=== PATIENT | female | born 1950 | race Caucasian/White ===

== ENCOUNTER 2017-05-04 16:26 | Inpatient (IN) | payer MEDICARE, BC ==
[~2017-05-04] VITALS: Ht 165.1 cm; Wt 72.0 kg
[2017-05-04] VITALS (10 sets, daily range): BP systolic 67–142; BP diastolic 57–76; PULSE 79–113; RESP 25; TEMP 96.6–97.9; O2SAT 98–100
[2017-05-04 16:43] LABS: HEMATOCRIT 40.4 % (35.0-46.0); MEAN CELL VOLUME 95.3 FL (80.0-100.0); MEAN CORPUSCULAR HGB CONC 33.5 % (32.0-36.0); PLATELET COUNT 123 TH/MM3 (150-450); RED BLOOD COUNT 4.25 MIL/MM3 (4.00-5.30); RED CELL DISTRIBUTION WIDTH 13.3 % (11.6-17.2); WHITE BLOOD COUNT 4.3 TH/MM3 (4.0-11.0)
[2017-05-04 16:50] LABS: HEMO FLAGS AUTO DIFF
[2017-05-04] MEDS ORDERED: MISCELLANEOUS NURSING INFORMATION XX SCH ×2 (17:00→19:45)
[2017-05-04] MEDS ORDERED: MAGNESIUM OXIDE 400 MG TAB PO PRN (17:00)
[2017-05-04] MEDS ORDERED: CHLORHEXIDINE GLUCONATE 2 % 1 PACK (2 CLOTHS) TOP PRN ×2 (17:00→19:45)
[2017-05-04] MEDS ORDERED: LACTULOSE SYRUP 20 GM/30 ML CUP PO PRN ×2 (17:00→19:45)
[2017-05-04] MEDS ORDERED: POTASSIUM CHLORIDE 25 MEQ EFFERVESCENT TAB PO PRN (17:00)
[2017-05-04] MEDS ORDERED: MAGNESIUM SULFATE INJ 4 GM in SODIUM CHLORIDE 0.9% INJ 92 ML IV PRN (17:00)
[2017-05-04] MEDS ORDERED: POTASSIUM CHLOR 20 MEQ PREMIX 100 ML IV PRN ×2 (17:00)
[2017-05-04] MEDS ORDERED: POTASSIUM PHOSPHATE MONOBASIC 500 MG TAB PO PRN (17:00)
[2017-05-04] MEDS ORDERED: MAGNESIUM HYDROXIDE SUSP 30 ML CUP PO PRN ×2 (17:00→19:45)
[2017-05-04] MEDS ORDERED: POTASSIUM PHOSPHATE MONOBASIC 500 MG TAB PO/TUBE PRN (17:00)
[2017-05-04] MEDS ORDERED: POTASSIUM CHLOR 40 MEQ PREMIX 100 ML IV PRN ×2 (17:00)
[2017-05-04] MEDS ORDERED: ONDANSETRON HCL 4 MG/2 ML VIAL IV PUSH PRN (17:00)
[2017-05-04] MEDS ORDERED: MAGNESIUM SULFATE INJ 2 GM in SODIUM CHLORIDE 0.9% INJ 96 ML IV PRN (17:00)
[2017-05-04] MEDS ORDERED: SODIUM CHLORIDE 0.9% FLUSH 10 ML FLUSH IV FLUSH PRN ×2 (17:00→19:45)
[2017-05-04] MEDS ORDERED: SODIUM PHOSPHATE INJ 30 MMOL in SODIUM CHLOR 0.9% 250 ML INJ 240 ML IV PRN (17:00)
[2017-05-04] MEDS ORDERED: RESP: ALBUTEROL 2.5 MG/IPRATROPIUM 0.5 MG NEB (PRN) INH ×2 (17:00→19:45)
[2017-05-04] MEDS ORDERED: POTASSIUM PHOSPHATE INJ 30 MMOL in SODIUM CHLOR 0.9% 250 ML INJ 250 ML IV PRN (17:00)
[2017-05-04] MEDS ORDERED: SENNOSIDES 8.6 MG TAB PO PRN ×2 (17:00→19:45)
--- NOTE | 2017-05-04 17:00 | RADRPT ---
EXAM DATE/TIME: 05/04/2017 16:42 [facility] COMPARISON: No previous studies available for comparison. INDICATIONS : Fall. Unresponsive. RADIATION DOSE: 58.68 CTDIvol (mGy) MEDICAL HISTORY : Non-responsive. SURGICAL HISTORY : Non-responsive. ENCOUNTER: Initial ACUITY: 1 day PAIN SCALE: Non-responsive LOCATION: cranial TECHNIQUE: Multiple contiguous axial images were obtained of the head. Using automated exposure control and adj ustment of the mA and/or kV according to patient size, radiation dose was kept as low as reasonably a chievable to obtain optimal diagnostic quality images. DICOM format image data is available electro nically for review and comparison. FINDINGS: CEREBRUM: Ventricles are normal. There is trace subarachnoid blood products layer along the right frontal sulci in the mid convexity and at the left frontoparietal high convexity. No intraparenchymal blood produc ts are identified. No midline shift or herniation. POSTERIOR FOSSA: Posterior fossa structures demonstrate no acute finding. EXTRACRANIAL: There are blood products within the sphenoid sinus and there is fluid pooling within the posterior na sopharynx. Orbits demonstrate no abnormality. There is focal left parietal scalp soft tissue swelling with subcutaneous air. SKULL: There is a nondisplaced fracture extending through the left parietal bone and left temporal bone. CONCLUSION: 1. There are minimal acute subarachnoid blood products layering along the sulci of the right frontal lobe and left frontoparietal region. 2. There is a nondisplaced fracture of the left temporal bone and parietal bone. 3. Blood products are present within the sphenoid sinus. Octaviano Coronado MD on May 04, 2017 at 16:54 Board Certified Radiologist. This report was verified electronically.
[2017-05-04 17:06] LABS: CHLORIDE 101 MEQ/L (98-107); POTASSIUM 3.6 MEQ/L (3.5-5.1); SODIUM (NA) 138 MEQ/L (136-145)
[2017-05-04 17:10] LABS: ANION GAP 15 MEQ/L (5-15); APTT (PATIENT) 26.1 SEC (24.3-30.1); BICARBONATE 21.6 MEQ/L (21.0-32.0); BLOOD UREA NITROGEN 22 MG/DL (7-18); INTERNATIONAL NORMALIZED RATIO 1.3 RATIO; PROTHROMBIN TIME - PATIENT 12.7 SEC (9.8-11.6)
[2017-05-04 17:13] LABS: ALT (GPT) 71 U/L (10-53); AST (GOT) 112 U/L (15-37); GLOMERULAR FILTRATION RATE 55 ML/MIN (>89)
[2017-05-04 17:14] LABS: TOTAL BILIRUBIN ADULT 0.6 MG/DL (0.2-1.0)
[2017-05-04 17:15] LABS: CREATINE KINASE 230 U/L (26-192)
[2017-05-04 17:16] LABS: ALKALINE PHOSPHATASE 111 U/L (45-117)
--- NOTE | 2017-05-04 17:17 | RADRPT ---
EXAM DATE/TIME: 05/04/2017 16:42 [facility] COMPARISON: No previous studies available for comparison. INDICATIONS : Fall. Unresponsive. RADIATION DOSE: 26.64 CTDIvol (mGy) MEDICAL HISTORY : Non-responsive. SURGICAL HISTORY : Non-responsive. ENCOUNTER: Initial ACUITY: 1 day PAIN SCALE: Non-responsive LOCATION: neck TECHNIQUE: Volumetric scanning of the cervical spine was performed. Multiplanar reconstructions in the sagittal, coronal and oblique axial planes were performed. Using automated exposure control and adjustment o f the mA and/or kV according to patient size, radiation dose was kept as low as reasonably achievable to obtain optimal diagnostic quality images. DICOM format image data is available electronically f or review and comparison. FINDINGS: CT of the cervical spine was performed in sagittal and axial planes. There is straightening of the no rmal cervical lordosis which may be secondary positioning or spasm. There is degenerative disc diseas e with disc space narrowing and marginal osteophyte formation at C5-C6. 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 No focal areas of marrow replace ment are identified. The craniocervical junction appears normal. Axial images were performed from C2- C3 through C7-T1. There is fluid in the left middle ear and mastoid with a fracture of the left temporal bone. There is also high density fluid in the sphenoid sinus characteristic of basilar skull fracture. There is marta eolar disease in both upper lobes which may reflect edema. C2-C3: No significant abnormalities identified. C3-C4: No significant abnormalities identified. C4-C5: A small central protrusion is present impinging on the thecal sac but not significantly deforming the cord. There is no significant spinal canal stenosis. The neural foramina are clear bilaterally. C5-C6: There is uncovertebral joint hypertrophy on the right side. The neural foramina are clear bilaterally . There is no significant spinal canal stenosis. There is osteophytic ridging along the posterior asp ect of vertebral body. C6-C7: No significant abnormalities identified. C7-T1: No significant abnormalities identified. CONCLUSION: 1. No evidence of acute cervical spine fracture. 2. Horizontal fracture left temporal bone. Edin Fitch MD on May 04, 2017 at 17:06 Board Certified Radiologist. This report was verified electronically.
[2017-05-04] MEDS ORDERED: NOREPINEPHRINE 4 MG/4 ML AMP ONE (17:18)
--- NOTE | 2017-05-04 17:18 | RADRPT ---
EXAM DATE/TIME: 05/04/2017 17:04 [facility] COMPARISON: No previous studies available for comparison. INDICATIONS : Post intubation. MEDICAL HISTORY : Unobtainable. SURGICAL HISTORY : Unobtainable. ENCOUNTER: Initial ACUITY: 1 day PAIN SCORE: Non-responsive. LOCATION: Bilateral chest FINDINGS: The cardiac silhouette is enlarged in transverse diameter. There is bilateral perihilar pulmonary lela ma worse the upper lobes and worse on the right. Endotracheal tube is in good position above the shahrzad na. There is no evidence of pneumothorax. CONCLUSION: 1. Satisfactory position of endotracheal tube as above. 2. Interstitial pulmonary edema Edin Fitch MD on May 04, 2017 at 17:15 Board Certified Radiologist. This report was verified electronically.
[2017-05-04 17:28] LABS: CKMB 3.9 NG/ML (0.5-3.6)
--- NOTE | 2017-05-04 17:29 | PD ---
HPI Chief Complaint: cardiac arrest Time Seen by Provider: 16:31 Travel History International Travel<30 days: No Contact w/Intl Traveler<30days: No Traveled to known affect area: No History of Present Illness HPI This patient comes in critically ill after suffering ventricular fibrillation arrest. This patient was witnessed at 345 to have a syncopal episode. She became unresponsive and fell backward and struck the back of her head on the ground. Paramedics were called and found her in ventricular fibrillation. They worked her as an ACLS code for the next 40 minutes until they got return of circulation. She was defibrillated 6 times and received 4 doses of 1 mg epinephrine. She received 100 mg of bicarbonate and a total of 450 mg of amiodarone given over 2 separate doses. She has a history of A. fib and takes Xarelto. Patient is unresponsive on arrival and throughout her stay so far and is unable to provide any further history or review of systems. I did speak with her family members. [facility] Social History Alcohol Use: No Tobacco Use: No Substance Use: No Allergies-Medications (Allergen,Severity, Reaction): Coded Allergies: No Known Allergies (Unverified , 05/04/17) Review of Systems ROS Limitations: Clinical Condition, Intubated, Unresponsive Physical Exam Narrative GENERAL: Well-nourished, well-developed patient who is unresponsive and intubated . SKIN: Focused skin assessment reveals no rash and nodules. Skin is Warm and dry. HEAD: Large hematoma in the left occipital region. There is a stellate 2.5 cm laceration. EYES: Pupils equal and round. No scleral icterus. No injection or drainage. ENT: No nasal bleeding or discharge. Mucous membranes pink and moist. There is blood in the left ear canal. There is hemotympanum present. She is intubated. NECK: Trachea midline. No JVD. C-collar maintained. CARDIOVASCULAR: Irregularly irregular rhythm. No murmur appreciated. RESPIRATORY: Clear lungs to auscultation when being bagged by respiratory therapist. Clear to auscultation. Breath sounds equal bilaterally. GASTROINTESTINAL: Abdomen soft, non-tender, nondistended. Hepatic and splenic margins not palpable. MUSCULOSKELETAL: No obvious deformities. No clubbing. No cyanosis. No edema. NEUROLOGICAL: GCS of 3. Pupils are 3 mm and nonreactive and symmetric and round. No response to pain stimuli. Requiring no medications for sedation PSYCHIATRIC: Impossible to test mood or affect or insight or judgment. Data Data Orders Orders Electrocardiogram (05/04/17 16:29) Complete Blood Count With Diff (05/04/17 16:29) Comprehensive Metabolic Panel (05/04/17 16:29) Creatine Kinase (Cpk) (05/04/17 16:29) Ckmb (Isoenzyme) Profile (05/04/17 16:29) Troponin I (05/04/17 16:29) Prothrombin Time / Inr (Pt) (05/04/17 16:29) Act Partial Throm Time (Ptt) (05/04/17 16:29) Arterial Blood Gas (Abg) (05/04/17 16:29) Chest, Single Ap (05/04/17 16:29) Ct Brain W/O Iv Contrast(Rout) (05/04/17 16:29) Ct Cerv Spine W/O Contrast (05/04/17 ) Admit Order (Ed Use Only) (05/04/17 16:41) Admit To Inpatient (05/04/17 ) Code Status (05/04/17 16:46) Vital Signs (Adult) COY.Q1H (05/04/17 16:46) Activity Bed Rest (05/04/17 16:46) Elevate Head Of Bed (05/04/17 16:46) Neuro Checks . ORDERED (05/04/17 16:46) Insert Ng Tube (05/04/17 16:46) Diet Npo (05/04/17 Dinner) Sodium Chloride 0.9% Flush (Ns Flush) (05/04/17 17:00) Sodium Chloride 0.9% Flush (Ns Flush) (05/04/17 21:00) Famotidine Inj (Pepcid Inj) (05/04/17 21:00) Ondansetron Inj (Zofran Inj) (05/04/17 17:00) Albuterol-Ipratropium Neb (Duoneb Neb) (05/04/17 22:00) Albuterol-Ipratropium Neb (Duoneb Neb) (05/04/17 17:00) Sputum Culture And Gram Stain (05/04/17 16:46) Brine Supervisor / Telemetry COY.Q8H (05/04/17 16:46) Pharmacologic Contraindication (05/04/17 16:46) ^ Initiate Protocol (05/04/17 16:46) Instruction (05/04/17 16:46) [facility] Nursing Information (05/04/17 17:00) Chlorhexidine 2% Cloth (Chlorhexidine 2% (05/05/17 04:00) Chlorhexidine 2% Cloth (Chlorhexidine 2% (05/04/17 17:00) Mrsa Pcr Surveillance (05/04/17 16:46) Docusate Sodium-Senna (Yaneth-Colace) (05/04/17 21:00) Magnesium Hydroxide Liq (Milk Of Magnesi (05/04/17 17:00) Sennosides (Senokot) (05/04/17 17:00) Lactulose Liq (Lactulose Liq) (05/04/17 17:00) Elevate Head Of Bed (05/04/17 16:46) Restraints Non-Violent COY.Q3H (05/04/17 16:46) Ventilator Weaning Readiness COY.DAILY@0800 (05/04/17 16:46) ^ Medication Admin Instruction (05/04/17 16:46) Notify Dr: Other (05/04/17 16:46) Phosphorus (Po4) (05/04/17 16:46) Potassium Chlor 40 Meq Premix (Kcl 40 Me (05/04/17 17:00) Potassium Chlor 20 Meq Premix (Kcl 20 Me (05/04/17 17:00) Potassium Chloride Eff (K-Lyte Cl Eff) (05/04/17 17:00) Potassium Chlor 40 Meq Premix (Kcl 40 Me (05/04/17 17:00) Potassium Chlor 20 Meq Premix (Kcl 20 Me (05/04/17 17:00) Magnesium Sulfate Inj (Magnesium Sulfate (05/04/17 17:00) Magnesium Oxide (Mag-Ox) (05/04/17 17:00) Magnesium Sulfate Inj (Magnesium Sulfate (05/04/17 17:00) Potassium Phosphate (K-Phos) (05/04/17 17:00) Sodium Phosphate Inj (Sodium Phosphate I (05/04/17 17:00) Potassium Phosphate (K-Phos) (05/04/17 17:00) Potassium Phosphate Inj (Potassium Phosp (05/04/17 17:00) Inpatient Certification (05/04/17 ) Labs Laboratory Tests Test 05/04/17 16:25 White Blood Count 4.3 TH/MM3 Red Blood Count 4.25 MIL/MM3 Hemoglobin 13.6 GM/DL Hematocrit 40.4 % Mean Corpuscular Volume 95.3 FL Mean Corpuscular Hemoglobin 32.0 PG Mean Corpuscular Hemoglobin Concent 33.5 % Red Cell Distribution Width 13.3 % Platelet Count 123 TH/MM3 Mean Platelet Volume 9.1 FL CBC Comment AUTO DIFF Prothrombin Time 12.7 SEC Prothromb Time International Ratio 1.3 RATIO Activated Partial Thromboplast Time 26.1 SEC Blood Urea Nitrogen 22 MG/DL Creatinine 1.00 MG/DL Random Glucose 271 MG/DL Total Protein 6.3 GM/DL Albumin 3.0 GM/DL Calcium Level 8.5 MG/DL Aspartate Amino Transf (AST/SGOT) 112 U/L Alanine Aminotransferase (ALT/SGPT) 71 U/L Total Bilirubin 0.6 MG/DL Sodium Level 138 MEQ/L Potassium Level 3.6 MEQ/L Chloride Level 101 MEQ/L Carbon Dioxide Level 21.6 MEQ/L Anion Gap 15 MEQ/L Estimat Glomerular Filtration Rate 55 ML/MIN [facility] Medical Decision Making Medical Screen Exam Complete: Yes Emergency Medical Condition: Yes Medical Record Reviewed: Yes Differential Diagnosis Ventricular for ablation, A. fib with RVR, SVT, intracranial hemorrhage Narrative Course I have reviewed the patient's electronic medical record. Patient had a Holter monitor in 2015 showing A. fib as well as some brief wide complex tachycardia spells Patient arrives critically ill. She has had ACLS coding for the last 40 minutes for V. fib arrest. Currently she is in A. fib with RVR, rate 110 Initial blood pressure 160/110 3 IVs placed I reviewed her chest x-ray which shows good placement of tube Saturations are excellent on the vent Stat CT of the brain reveals some subarachnoid hemorrhage as well as nondisplaced left temporal bone fracture CT of the C-spine is still pending Case reviewed in detail with Dr. 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 fib Procedure note: During the logrolling process, I placed 3 simple interrupted sutures with 3-0 Ethilon to stop the scalp bleeding. No anesthesia required for the sutures. She has a large hematoma but there is no longer any bleeding Laceration is stellate and 2.5 cm in the left occipital scalp Have taken further history with family. She is on Xarelto for chronic A. fib. There is no adequate way to reverse this rapidly. I spoke a second time with Dr. Simpson who is awaiting emergent transfer Patient is very complex and extensive bedside time is required Labs have been sent and are pending. After 6 defibrillations and CPR obviously her cardiac enzymes will be elevated and have to be interpreted in that light. Critical Care Narrative Aggregate critical care time was 80 minutes. Time to perform other separately billable procedures was not included in the critical care time. My time did not include minutes spent treating any other patients simultaneously or on activities that did not directly contribute to the patient's treatment. The services I provided to this patient were to treat and/or prevent clinically significant deterioration that could result in: Cardiopulmonary arrest, , cardiogenic shock, brain stem herniation I provided critical care services requiring my management, as noted below: Chart data review, documentation time, medication orders and management, vital sign assessments/reviewing monitor data, ordering and reviewing lab tests, ordering and interpreting/reviewing x-rays and diagnostic studies, care of the patient and discussion of the patient with the admitting physicians. Diagnosis Primary Impression: Ventricular fibrillation Additional Impressions: Cardiac arrest Subarachnoid hemorrhage following injury Qualified Codes: S06.6X3A - Traumatic subarachnoid hemorrhage with loss of consciousness of 1 hour to 5 hours 59 minutes, initial encounter Admitting Information Admitting Physician Requests: Admit Stone Hewitt MD May 04, 2017 17:29
[2017-05-04 17:47] LABS: NEUTROPHIL # MANUAL DIFF 0.2 TH/MM3 (1.8-7.7); POLYS (SEG NEUTROPHILS) 4 % (16-70); WBC DIFF SAMPLE 100
[2017-05-04 17:48] LABS: PLATELET ESTIMATE SMEAR LOW (NORMAL); PLATELET MORPHOLOGY NORMAL (NORMAL)
[2017-05-04 17:49] LABS: SCAN/DIFF FINAL DIFF MANUAL
[2017-05-04] MEDS ORDERED: PROTHROMBIN COMPLEX CONC INJ 3,000 UNITS in SYRINGE/BAG 1 EA IV ONE (18:45)
[2017-05-04] MEDS ORDERED: ACTIVATED CHARCOAL LIQUID 25 GM/120 ML BTL NG ONE (18:45)
[2017-05-04] MEDS ORDERED: AMIODARONE INJ 450 MG in DEXTROSE 5% IN WATE(EXCEL) INJ 241 ML IV PRN ×2 (19:44)
[2017-05-04] MEDS ORDERED: NOREPINEPHRINE-DEXTROSE DRIP 250 ML IV PRN (19:45)
[2017-05-04] MEDS ORDERED: BISACODYL 10 MG SUPP RECTAL PRN (19:45)
[2017-05-04] MEDS ORDERED: MORPHINE SULFATE 4 MG/ML INJ IV PUSH PRN (19:45)
[2017-05-04] MEDS ORDERED: MIDAZOLAM HCL 2 MG/2 ML VIAL IV PUSH PRN (19:45)
[2017-05-04] MEDS ORDERED: SODIUM CHLOR 0.9% 1000 ML INJ 1,000 ML IV ONE (19:45)
[2017-05-04] MEDS ORDERED: TERBUTALINE INJ 1 MG/ML AMP SQ PRN (19:45)
--- NOTE | 2017-05-04 20:32 | HHI.HP ---
[facility] Service Critical Care Medicine Primary Care Physician Britta Nelson MD Admission Diagnosis v fib arrest, head injury Diagnosis: Travel History International Travel<30 Days: No Contact w/Intl Traveler <30 Da: No Traveled to Known Affected Are: No History of Present Illness 67-year-old female with past medical history of atrial fibrillation on Xarelto presents for a witnessed at 3:45 syncopal episode. She became unresponsive and fell backward and struck the back of her head on the ground. The CPR was started by bystanders and paramedics were called and found her in ventricular fibrillation. They worked her as an ACLS code for the next 40 minutes until they got return of circulation. She was defibrillated 6 times and received 4 doses of 1 mg epinephrine. She received 100 mg of bicarbonate and a total of 450 mg of amiodarone given over 2 separate doses. Review of Systems ROS Unobtainable patient is comatose and intubated Past Family Social History Allergies: Coded Allergies: No Known Allergies (Unverified , 05/04/17) Past Medical History Atrial fibrillation Syncopal episode Past Surgical History Unable to obtain Reported Medications Unable to obtain Active Ordered Medications Current Medications Medications (Trade) Dose Ordered Sig/Tom Route PRN Reason Start Time Stop Time Status Last Admin Dose Admin Ondansetron HCl (Zofran Inj) 4 mg Q6H PRN IV PUSH NAUSEA OR VOMITING 05/04/17 17:00 Albuterol/ Ipratropium (Duoneb Neb) 1 ampule Q6HR NEB INH 05/04/17 22:00 Chlorhexidine Gluconate (Chlorhexidine 2% Cloth) 3 pack Taper DAILY@04 TOP 05/05/17 04:00 05/01/18 03:59 Potassium Chloride 100 ml @ 50 mls/hr Q2H PRN IV For Potassium 2.8 - 3.2 mEq/L 05/04/17 17:00 Potassium Chloride 100 ml @ 50 mls/hr Q2H PRN IV For Potassium 2.8 - 3.2 mEq/L 05/04/17 17:00 Potassium Bicarb/ Potassium Chloride (K-Lyte Cl Eff) 50 meq UNSCH PRN PO For Potassium 3.3 - 3.5 mEq/L 05/04/17 17:00 Potassium Chloride 100 ml @ 25 mls/hr UNSCH PRN IV For Potassium 3.3 - 3.5 mEq/L 05/04/17 17:00 Potassium Chloride 100 ml @ 50 mls/hr Q2H PRN IV For Potassium 3.3 - 3.5 mEq/L 05/04/17 17:00 Magnesium Sulfate 4 gm/Sodium Chloride 100 ml @ 50 mls/hr UNSCH PRN IV For Magnesium 0.9 - 1.1 mg/dL 05/04/17 17:00 Magnesium Oxide (Mag-Ox) 800 mg UNSCH PRN PO For Magnesium 1.2 - 1.6 mg/dL 05/04/17 17:00 Magnesium Sulfate 2 gm/Sodium Chloride 100 ml @ 50 mls/hr UNSCH PRN IV For Magnesium 1.2 - 1.6 mg/dL 05/04/17 17:00 Potassium Phosphate (K-Phos) 2,000 mg Q4H PRN PO For Phosphorus < 2.5 mg/dL 05/04/17 17:00 Sodium Phosphate 30 mmol/Sodium Chloride 250 ml @ 42 mls/hr UNSCH PRN IV For Phosphorus < 2.5 mg/dL 05/04/17 17:00 Potassium Phosphate (K-Phos) 2,000 mg UNSCH PRN PO/TUBE SEE LABEL COMMENTS 05/04/17 17:00 Potassium Phosphate 30 mmol/ Sodium Chloride 260 ml @ 42 mls/hr UNSCH PRN IV SEE LABEL COMMENTS 05/04/17 17:00 Levetriacetam 100 ml @ 400 mls/hr Q12HR IV 05/04/17 21:00 Norepinephrine Bitartrate 250 ml @ 7.5 mls/hr TITRATE PRN IV Blood pressure management 05/04/17 19:45 05/04/17 17:23 Terbutaline Sulfate (Brethine Inj) 1 mg UNSCH PRN SQ For Extravasation 05/04/17 19:45 Amiodarone HCl 450 mg/Dextrose 250 ml @ 33.33 mls/ hr TITRATE PRN IV Per Protocol 05/04/17 19:45 Sodium Chloride (NS Flush) 2 ml UNSCH PRN IV FLUSH FLUSH AFTER USING IV ACCESS 05/04/17 19:45 Sodium Chloride (NS Flush) 2 ml BID IV FLUSH 05/04/17 21:00 Acetaminophen (Tylenol) 650 mg Q6H PRN PO PAIN 1-5 AND/OR FEVER >101F 05/04/17 19:45 Morphine Sulfate (Morphine Inj) 2 mg Q2H PRN IV PUSH PAIN SCALE 6 TO 10 05/04/17 19:45 Famotidine (Pepcid Inj) 20 mg Q12HR IV PUSH 05/04/17 21:00 Midazolam HCl (Versed Inj) 2 mg Q1H PRN IV PUSH SEDATION 05/04/17 19:45 Albuterol/ Ipratropium (Duoneb Neb) 1 ampule Q2HR NEB PRN INH WHEEZING 05/04/17 19:45 Miscellaneous Information 1 Q361D XX 05/04/17 19:45 Chlorhexidine Gluconate (Chlorhexidine 2% Cloth) 3 pack Taper DAILY@04 TOP 05/05/17 04:00 05/01/18 03:59 Chlorhexidine Gluconate (Chlorhexidine 2% Cloth) 3 pack UNSCH PRN TOP HYGIENIC CARE 05/04/17 19:45 Senna/Docusate Sodium (Yaneth-Colace) 1 tab BID PO 05/04/17 21:00 Magnesium Hydroxide (Milk Of Magnesia Liq) 30 ml Q12H PRN PO Mild constipation 05/04/17 19:45 Sennosides (Senokot) 17.2 mg Q12H PRN PO Moderate constipation 05/04/17 19:45 Bisacodyl (Dulcolax Supp) 10 mg DAILY PRN RECTAL SEVERE CONSITIPATION 05/04/17 19:45 Lactulose (Lactulose Liq) 30 ml DAILY PRN PO SEVERE CONSITIPATION 05/04/17 19:45 Family History Unable to obtain Social History Unable to obtain Physical Exam Vital Signs Vital Signs Date Time Temp Pulse Resp B/P (MAP) Pulse Ox O2 Delivery O2 Flow Rate FiO2 05/04/17 18:49 100 50 05/04/17 17:32 79 107/67 (80) 05/04/17 17:25 96 67/59 (62) 98 05/04/17 17:23 96 67/59 05/04/17 17:15 98 76/57 (63) 05/04/17 17:15 05/04/17 16:45 99 Bag Valve 05/04/17 16:40 109 79/67 (71) 99 05/04/17 16:34 113 78/63 (68) 98 05/04/17 16:30 100 100 05/04/17 16:30 97.9 104 78/63 (46) 99 Physical Exam GENERAL: Well-nourished, well-developed female comatose and intubated SKIN: Warm and dry. HEAD: Normocephalic. Left ear canal full of blood EYES: No scleral icterus. No injection or drainage. NECK: Supple, trachea midline. No JVD or lymphadenopathy. CARDIOVASCULAR: Regular rate and rhythm without murmurs, gallops, or rubs. RESPIRATORY: Breath sounds equal bilaterally. No accessory muscle use. GASTROINTESTINAL: Abdomen soft, non-tender, nondistended. MUSCULOSKELETAL: No cyanosis, or edema. BACK: Nontender without obvious deformity. NEURO EXAM: GCS: M 5 V T E 4 Mental Status: The patient is comatose and intubated Cranial Nerves: Pupils are round, reactive to light. Reflexes: No clonus. Laboratory Laboratory Tests Test 05/04/17 16:25 White Blood Count 4.3 Red Blood Count 4.25 Hemoglobin 13.6 Hematocrit 40.4 Mean Corpuscular Volume 95.3 Mean Corpuscular Hemoglobin 32.0 Mean Corpuscular Hemoglobin Concent 33.5 Red Cell Distribution Width 13.3 Platelet Count 123 Mean Platelet Volume 9.1 CBC Comment AUTO DIFF Differential Total Cells Counted 100 Neutrophils % (Manual) 4 Lymphocytes % 95 Monocytes % 1 Neutrophils # (Manual) 0.2 Differential Comment FINAL DIFF MANUAL Atypical Lymphocytes Platelet Estimate LOW Platelet Morphology Comment NORMAL Red Cell Morphology Comment NORMAL Prothrombin Time 12.7 Prothromb Time International Ratio 1.3 Activated Partial Thromboplast Time 26.1 Blood Urea Nitrogen 22 Creatinine 1.00 Random Glucose 271 Total Protein 6.3 Albumin 3.0 Calcium Level 8.5 Alkaline Phosphatase 111 Aspartate Amino Transf (AST/SGOT) 112 Alanine Aminotransferase (ALT/SGPT) 71 Total Bilirubin 0.6 Sodium Level 138 Potassium Level 3.6 Chloride Level 101 Carbon Dioxide Level 21.6 Anion Gap 15 Estimat Glomerular Filtration Rate 55 Phosphorus Level 7.4 Total Creatine Kinase 230 Creatine Kinase MB 3.9 Creatine Kinase MB % 1.7 Troponin I 0.02 Result Diagram: 05/04/17 1625 05/04/17 1625 Imaging Last [address] 05/04/17 1629 Signed Impressions: Service Date/Time: Thursday, May 04, 2017 16:42 - CONCLUSION: 1. There are minimal acute subarachnoid blood products layering along the sulci of the right frontal lobe and left frontoparietal region. 2. There is a nondisplaced fracture of the left temporal bone and parietal bone. 3. Blood products are present within the sphenoid sinus. Octaviano Coronado MD Chest X-Ray 05/04/17 1629 Signed Impressions: Service Date/Time: Thursday, May 04, 2017 17:04 - CONCLUSION: 1. Satisfactory position of endotracheal tube as above. 2. Interstitial pulmonary edema Edin Fitch MD Cervical Spine CT 05/04/17 0000 Signed Impressions: Service Date/Time: Thursday, May 04, 2017 16:42 - CONCLUSION: 1. No evidence of acute cervical spine fracture. 2. Horizontal fracture left temporal bone. MD Pancho Fletcher VTE Risk Assessment Pancho VTE Risk Assessment: Mod/High Risk (score >= 2) VTE Pharm Contraindication: Hemorrhage Caprini Risk Assessment Model Point Value = 1 Point Value = 2 Point Value = 3 Point Value = 5 Age 41-60 Minor surgery BMI > 25 kg/m2 Swollen legs Varicose veins or History of unexplained or recurrent spontaneous Oral contraceptives or hormone replacement Sepsis (< 1 month) Serious lung disease, including pneumonia (< 1 month) Abnormal pulmonary function Acute myocardial infarction Congestive heart failure (< 1 month) History of inflammatory bowel disease Medical patient at bed rest Age 61-74 Arthroscopic surgery Major open surgery (> 45 min) Laparoscopic surgery (> 45 min) Malignancy Confined to bed (> 72 hours) Immobilizing plaster cast Central venous access Age >= 75 History of VTE Family history of VTE Factor V Leiden Prothrombin [id number] Lupus anticoagulant Anticardiolipin antibodies Elevated serum homocysteine Heparin-induced thrombocytopenia Other congenital or acquired thrombophilia Stroke (< 1 month) Elective arthroplasty Hip, pelvis, or leg fracture Acute spinal cord injury (< 1 month) Prophylaxis Regimen Total Risk Factor Score Risk Level Prophylaxis Regimen 0-1 Low Early ambulation 2 Moderate Order ONE of the following: *Sequential Compression Device (SCD) *Heparin 5000 units SQ BID 3-4 Higher Order ONE of the following medications: *Heparin 5000 units SQ TID *Enoxaparin/Lovenox 40 mg SQ daily (WT < 150 kg, CrCl > 30 mL/min) *Enoxaparin/Lovenox 30 mg SQ daily (WT < 150 kg, CrCl > 10-29 mL/min) *Enoxaparin/Lovenox 30 mg SQ BID (WT < 150 kg, CrCl > 30 mL/min) AND/OR *Sequential Compression Device (SCD) 5 or more Highest Order ONE of the following medications: *Heparin 5000 units SQ TID (Preferred with Epidurals) *Enoxaparin/Lovenox 40 mg SQ daily (WT < 150 kg, CrCl > 30 mL/min) *Enoxaparin/Lovenox 30 mg SQ daily (WT < 150 kg, CrCl > 10-29 mL/min) *Enoxaparin/Lovenox 30 mg SQ BID (WT < 150 kg, CrCl > 30 mL/min) AND *Sequential Compression Device (SCD) Assessment and Plan Assessment and Plan Respiratory failure - Intubated for an airway protection - No weaning until neurologically improved - CXR and ABG daily - Vent bundle - DuoNeb's when necessary V. fib arrest - Status post successful cardiopulmonary resuscitation - Continue amiodarone drip - GCS 9T - not a candidate for hypothermia protocol - Cardiology consult - No cardiac catheterization emergently due to small ICH and inability to initiate antiplatelet therapy if an intervention provided - With a series of EKGs and trend of troponins - Echocardiogram Atrial fibrillation - Rate controlled with amiodarone - Hold anticoagulation due to small intracranial bleed DVT GI prophylaxis - Teds SCDs - No pharmacological DVT prophylaxis due to small ICH - Pepcid Critical Care: The total critical care time was 35 minutes. Time to perform other separately billable procedures was not included in the critical care time. Ross Berrios MD May 04, 2017 8:32 pm
[2017-05-04] MEDS: AMIODARONE INJ 450 MG in D5W (EXCEL BAG) INJ 241 ML IV PRN (20:47)
--- NOTE | 2017-05-04 20:59 | RADRPT ---
EXAM DATE/TIME: 05/04/2017 19:51 [facility] COMPARISON: CHEST SINGLE AP, May 04, 2017, 17:04. INDICATIONS : Central line placement. MEDICAL HISTORY : Unobtainable. SURGICAL HISTORY : Unobtainable. ENCOUNTER: Subsequent ACUITY: 1 day PAIN SCORE: Non-responsive. LOCATION: Bilateral chest FINDINGS: A left internal jugular central line has been placed and has its tip in the superior vena cava in goo d position. No pneumothorax is noted. The endotracheal tube remains in good position 3 cm above the c steve. Nasogastric tube is below diaphragm. There is persistent pulmonary vascular congestion which i s worse on the right than the left. The heart is enlarged. CONCLUSION: 1. No pneumothorax status post placement of left internal jugular central line which has its tip in s uperior vena cava. 2. Persistent pulmonary vascular congestion which is worse on the right than the left. 3. Stable cardiomegaly. 4. Endotracheal tube and nasogastric tube are in good positions. Ben Covington MD on May 04, 2017 at 20:54 Board Certified Radiologist. This report was verified electronically.
[2017-05-04] MEDS ORDERED: SODIUM CHLORIDE 0.9% FLUSH 10 ML FLUSH IV FLUSH SCH (21:00)
[2017-05-04] MEDS ORDERED: FAMOTIDINE 20 MG/2 ML VIAL IV PUSH SCH (21:00)
[2017-05-04] MEDS: SODIUM CHLORIDE 0.9% FLUSH 10 ML FLUSH IV FLUSH SCH (21:00)
[2017-05-04] MEDS ORDERED: DOCUSATE SODIUM 50 MG/SENNA 8.6 MG TAB PO SCH (21:00)
[2017-05-04] MEDS: DOCUSATE SODIUM 50 MG/SENNA 8.6 MG TAB PO SCH (21:00)
[2017-05-04] MEDS ORDERED: fentaNYL DRIP 250 ML IV PRN (21:30)
[2017-05-04] MEDS: FAMOTIDINE 20 MG/2 ML VIAL IV PUSH SCH (21:36)
[2017-05-04] MEDS: levETIRAcetam INJ 100 ML IV SCH (21:36)
[2017-05-04] MEDS: RESP: ALBUTEROL 2.5 MG/IPRATROPIUM 0.5 MG NEB (SCH) INH (22:11)
[2017-05-04 22:24] LABS: INTERNATIONAL NORMALIZED RATIO 1.2 RATIO; PROTHROMBIN TIME - PATIENT 11.8 SEC (9.8-11.6)
[2017-05-05] VITALS (17 sets, daily range): BP systolic 100–124; BP diastolic 55–81; PULSE 66–85; RESP 16–18; TEMP 97.3–99.1; O2SAT 97–100
[2017-05-05] LABS: LACTIC ACID GHOST NOT REPORTABLE
--- NOTE | 2017-05-05 00:58 | PD.PROCEDR ---
Procedure Note Procedure Centerline placement A time-out was completed verifying correct patient, procedure, site, positioning , and special equipment if applicable. The patient was placed in a dependent position appropriate for central line placement based on the vein to be cannulated. The patients left neck was prepped and draped in sterile fashion. 1 % Lidocaine was used to anesthetize the surrounding skin area. A triple lumen 9 German Cordis catheter was introduced into the the internal jugular vein using the Seldinger technique and under ultrasound guidance. The catheter was threaded smoothly over the guide wire and appropriate blood return was obtained. Each lumen of the catheter was evacuated of air and flushed with sterile saline. The catheter was then sutured in place to the skin and a sterile dressing applied. Perfusion to the extremity distal to the point of catheter insertion was checked and found to be adequate. Estimated Blood Loss: 1ml The patient tolerated the procedure well and there were no complications. Ross Berrios MD May 05, 2017 12:58 am
[2017-05-05] MEDS: CHLORHEXIDINE GLUCONATE 2 % 1 PACK (2 CLOTHS) TOP SCH ×2 (04:00)
[2017-05-05] MEDS: RESP: ALBUTEROL 2.5 MG/IPRATROPIUM 0.5 MG NEB (SCH) INH ×4 (04:30→19:43)
--- NOTE | 2017-05-05 04:49 | RADRPT ---
EXAM DATE/TIME: 05/05/2017 03:41 [facility] COMPARISON: CHEST SINGLE AP, May 04, 2017, 19:51. INDICATIONS : Respiratory failure. MEDICAL HISTORY : None. SURGICAL HISTORY : None. ENCOUNTER: Subsequent ACUITY: 2 days PAIN SCORE: Non-responsive. LOCATION: Bilateral chest FINDINGS: A single AP semierect portable view of the chest was obtained and again demonstrates an endotracheal tube in place with the tip approximately 3 cm above the shu. A nasogastric tube remains in place a s well as a left internal jugular central venous line. The study is more Midinspiratory with hazy opa city now noted at the lung bases. The heart size is moderately enlarged. CONCLUSION: 1. Hazy opacity now noted at both lung bases. 2. Cardiomegaly. Thompson Pathak MD on May 05, 2017 at 4:46 Board Certified Radiologist. This report was verified electronically.
[2017-05-05] MEDS: AMIODARONE INJ 450 MG in D5W (EXCEL BAG) INJ 241 ML IV PRN ×2 (05:15→18:45)
[2017-05-05 05:57] LABS: AUTOMATED NEUTROPHIL # 10.6 TH/MM3 (1.8-7.7); BASOPHIL % 0.1 % (0.0-2.0); HEMATOCRIT 38.3 % (35.0-46.0); HEMO FLAGS DIFF FINAL; LYMPH % 3.9 % (9.0-44.0); LYMPHOCYTE # 0.5 TH/MM3 (1.0-4.8); MEAN CELL VOLUME 96.4 FL (80.0-100.0); MEAN CORPUSCULAR HEMOGLOBIN 32.7 PG (27.0-34.0); MEAN CORPUSCULAR HGB CONC 33.9 % (32.0-36.0); MONO % 4.3 % (0.0-8.0); NEUT % 91.7 % (16.0-70.0); PLATELET COUNT 131 TH/MM3 (150-450); RED BLOOD COUNT 3.98 MIL/MM3 (4.00-5.30); RED CELL DISTRIBUTION WIDTH 13.6 % (11.6-17.2); WHITE BLOOD COUNT 11.6 TH/MM3 (4.0-11.0)
[2017-05-05 06:04] LABS: INTERNATIONAL NORMALIZED RATIO 1.1 RATIO; PROTHROMBIN TIME - PATIENT 11.3 SEC (9.8-11.6)
[2017-05-05 06:11] LABS: BLOOD GAS BASE EXCESS -3.4 mmol/L (-2-2); BLOOD GAS CARBOXYHEMOGLOBIN 0.9 % (0-4); BLOOD GAS HCO3 21 mmol/L (22-26); BLOOD GAS O2 HGB SATURATION 97 % (90-100); BLOOD GAS OXYGEN CONTENT 18.2 Vol % (12.0-20.0); BLOOD GAS PCO2 35 mmHg (38-42); BLOOD GAS PO2 132 mmHg (61-120); BLOOD GAS TOTAL HGB 13.2 G/DL (12.0-16.0); CRITICAL VALUE NO; OXYGEN DEVICE VENTILATOR; TEMP CORR TO 98.6
[2017-05-05 06:12] LABS: STAT NO
[2017-05-05 06:15] LABS: DRAW SITE ART LINE; FIO2 40 %; VENT SETTINGS AC/16/500/PEEP5
[2017-05-05] MEDS: SODIUM CHLOR 0.9% 1000 ML INJ 1,000 ML IV SCH ×3 (06:18→22:15)
[2017-05-05 06:24] LABS: ANION GAP 10 MEQ/L (5-15); AST (GOT) 105 U/L (15-37); BICARBONATE 22.2 MEQ/L (21.0-32.0); BLOOD UREA NITROGEN 20 MG/DL (7-18); CHLORIDE 108 MEQ/L (98-107); GLOMERULAR FILTRATION RATE 89 ML/MIN (>89); MAGNESIUM 1.7 MG/DL (1.5-2.5); POTASSIUM 3.5 MEQ/L (3.5-5.1); SODIUM (NA) 140 MEQ/L (136-145)
[2017-05-05 06:26] LABS: ALT (GPT) 77 U/L (10-53)
[2017-05-05 06:30] LABS: ALKALINE PHOSPHATASE 118 U/L (45-117); TOTAL BILIRUBIN ADULT 0.7 MG/DL (0.2-1.0)
[2017-05-05] MEDS: ACETAMINOPHEN 325 MG TAB PO PRN (06:58)
[2017-05-05] MEDS ORDERED: SODIUM CHLORID 0.9% 500 ML INJ 500 ML IV ONE (07:45)
--- NOTE | 2017-05-05 08:42 | HHI.CCPN ---
Subjective Remarks/Hospital Course 67-year-old female with past medical history of atrial fibrillation on Xarelto presents for a witnessed at 3:45 syncopal episode. She became unresponsive and fell backward and struck the back of her head on the ground. The CPR was started by bystanders and paramedics were called and found her in ventricular fibrillation. They worked her as an ACLS code for the next 40 minutes until they got return of circulation. She was defibrillated 6 times and received 4 doses of 1 mg epinephrine. She received 100 mg of bicarbonate and a total of 450 mg of amiodarone given over 2 separate dose SUBJ 05/05/17: Patient remains intubated off sedation. Opens eyes to repeated verbal command. Do not follow commands but spontaneously moving upper extremities. Remains on amiodarone infusion, in atrial fibrillation but rate controlled. Off all pressors at this time. (Dr. Berrios had evaluated the patient and decided against cooling due to improvement in neuro exam). CT of the head ordered to follow-up on traumatic subarachnoid hemorrhage Objective Vital Signs Date Time Temp Pulse Resp B/P (MAP) Pulse Ox O2 Delivery O2 Flow Rate FiO2 05/05/17 07:46 98 Ventilator 40 05/05/17 06:00 79 05/05/17 05:15 132/74 05/05/17 04:00 98.6 16 Intake and Output 05/05/17 05/05/17 05/06/17 08:00 16:00 00:00 Intake Total 1274 ml Output Total 800 ml Balance 474 ml Result Diagram: 05/05/17 0540 05/05/17 0540 Other Results Laboratory Tests Test 05/05/17 06:00 Blood Gas Puncture Site ART LINE Blood Gas Patient Temperature 98.6 Blood Gas HCO3 21 mmol/L (22-26) Blood Gas Base Excess -3.4 mmol/L (-2-2) Blood Gas Oxygen Saturation 97 % (90-100) Arterial Blood pH 7.39 (7.380-7.420) Arterial Blood Partial Pressure CO2 35 mmHg (38-42) Arterial Blood Partial Pressure O2 132 mmHg (61-120) Arterial Blood Oxygen Content 18.2 Vol % (12.0-20.0) Arterial Blood Carboxyhemoglobin 0.9 % (0-4) Arterial Blood Methemoglobin 1.0 % (0-2) Blood Gas Hemoglobin 13.2 G/DL (12.0-16.0) Oxygen Delivery Device VENTILATOR Blood Gas Ventilator Setting AC/16/500/PEEP5 Blood Gas Inspired Oxygen 40 % Imaging Last [address] 05/04/17 1629 Signed Impressions: Service Date/Time: Thursday, May 04, 2017 16:42 - CONCLUSION: 1. There are minimal acute subarachnoid blood products layering along the sulci of the right frontal lobe and left frontoparietal region. 2. There is a nondisplaced fracture of the left temporal bone and parietal bone. 3. Blood products are present within the sphenoid sinus. Octaviano Coronado MD Chest X-Ray 05/04/17 1629 Signed Impressions: Service Date/Time: Thursday, May 04, 2017 17:04 - CONCLUSION: 1. Satisfactory position of endotracheal tube as above. 2. Interstitial pulmonary edema Edin Fitch MD Cervical Spine CT 05/04/17 0000 Signed Impressions: Service Date/Time: Thursday, May 04, 2017 16:42 - CONCLUSION: 1. No evidence of acute cervical spine fracture. 2. Horizontal fracture left temporal bone. Edin Fitch MD Objective Remarks GENERAL: Well-nourished, well-developed female off all sedation SKIN: Warm and dry. HEAD: Normocephalic. Left ear canal has blood EYES: No scleral icterus. No injection or drainage. NECK: Supple, trachea midline. No JVD or lymphadenopathy. CARDIOVASCULAR: Atrial fibrillation rate controlled no murmur RESPIRATORY: Breath sounds equal bilaterally. No accessory muscle use. GASTROINTESTINAL: Abdomen soft, non-tender, nondistended. MUSCULOSKELETAL: No cyanosis, or edema. BACK: Nontender without obvious deformity. NEURO EXAM: Patient opens eyes to repeated calling of her name. Spontaneously moving upper extremities. Do not follow commands at this time. MATT A/P Assessment and Plan Neuro: Possible anoxic brain injury Traumatic subarachnoid hemorrhage - Clinically neuro exam showing slight improvement - F/u CT head today, neurosurgery Dr. Carmona - Because of improvement in clinical exam plan for induced hypothermia was abandoned Resp: Acute Respiratory failure - Intubated for an airway protection - No weaning until neurologically improved - CXR and ABG daily - Vent bundle - DuoNeb's when necessary - Possible aspiration pneumonitis, send sputum culture CVS: V. fib arrest Chronic atrial fibrillation Lactic acidosis Troponin elevation - Status post successful cardiopulmonary resuscitation - Continue amiodarone drip - Anticoagulation reversed with Kcentra due to subarachnoid hemorrhage - Cardiology consult - No cardiac catheterization emergently due to small ICH and inability to initiate antiplatelet therapy if an intervention provided - Serial EKGs and trend of troponins, trend lactic acid. Troponin is down trending - Echocardiogram GI: - Nothing by mouth, start tube feeding - IV famotidine : - Monitor the renal function closely. Ramirez catheter ENDO: - Electrolyte replacement per protocol ID: Probable aspiration pneumonitis - Send sputum culture, watch off antibiotics DVT GI prophylaxis - Teds SCDs - No pharmacological DVT prophylaxis due to small ICH - Pepcid Critical Care: The total critical care time was 35 minutes. Time to perform other separately billable procedures was not included in the critical care time. Kaylie Brumfield MD May 05, 2017 08:42
[2017-05-05] MEDS: DOCUSATE SODIUM 50 MG/SENNA 8.6 MG TAB PO SCH ×2 (09:00→20:05)
[2017-05-05] MEDS: levETIRAcetam INJ 100 ML IV SCH ×2 (09:01→20:05)
[2017-05-05] MEDS: FAMOTIDINE 20 MG/2 ML VIAL IV PUSH SCH ×2 (09:02→20:05)
[2017-05-05] MEDS: SODIUM CHLORIDE 0.9% FLUSH 10 ML FLUSH IV FLUSH SCH ×2 (09:02→20:05)
[2017-05-05] MEDS: MAGNESIUM SULFATE 1 GM PREMIX 100 ML IV SCH ×2 (10:41→13:13)
--- NOTE | 2017-05-05 12:05 | RADRPT ---
EXAM DATE/TIME: 05/05/2017 11:33 [facility] COMPARISON: CT BRAIN W/O CONTRAST, May 04, 2017, 16:42. INDICATIONS : Evaluate bleed, post code, hit back of head RADIATION DOSE: 34.76 CTDIvol (mGy) MEDICAL HISTORY : Cardiovascular disease. SURGICAL HISTORY : None. ENCOUNTER: Initial ACUITY: 1 day PAIN SCALE: Non-responsive LOCATION: cranial TECHNIQUE: Multiple contiguous axial images were obtained of the head. Using automated exposure control and adj ustment of the mA and/or kV according to patient size, radiation dose was kept as low as reasonably a chievable to obtain optimal diagnostic quality images. DICOM format image data is available electro nically for review and comparison. FINDINGS: CEREBRUM: The ventricles are normal for age. No evidence of midline shift, mass lesion, hemorrhage or acute in farction. No extra-axial fluid collections are seen. POSTERIOR FOSSA: The cerebellum and brainstem are intact. The 4th ventricle is midline. The cerebellopontine angle i s unremarkable. EXTRACRANIAL: The visualized portion of the orbits is intact. SKULL: The calvaria is intact. No evidence of skull fracture. CONCLUSION: Negative for acute process. Chandra Mercado MD FACR on May 05, 2017 at 12:02 Board Certified Radiologist. This report was verified electronically.
--- NOTE | 2017-05-05 12:44 | MG ---
cc: SARAHY MERCADO MD, JAN MD Lab No: Date: : 1950 Sex: F REFERRING PHYSICIAN Dr. Berrios. MEDICAL HISTORY Atrial fibrillation on anticoagulation therapy, presented with ventricular fibrillation, syncopal episode, unresponsive, fell backwards and struck the back of her head on the ground. MEDICATIONS Albuterol, Keppra, norepinephrine, amiodarone, hydrochloride. DESCRIPTION The patient is intubated and sedated on 0.25 mcg of fentanyl. There is generalized polymorphic high amplitude delta and theta activity, predominantly delta rhythm. Hyperventilation was omitted. Photic stimulation did not elicit a driving response. There were no electrographic seizures or epileptiform discharges noted. INTERPRETATION This is an abnormal drowsy EEG with generalized moderate to severe generalized slowing that may indicate a moderate to severe encephalopathy that may be secondary to brain hypoxemia, metabolic derangements or medication effects. No epileptiform discharges or electrographic seizures were noted. Clinical correlation is recommended. Sarahy Mercado MD [facility]/BT /12:21 PM /12:30 PM [facility]ENTERSammie
--- NOTE | 2017-05-05 14:33 | EKG ---
Date Performed: 05/04/2017 Time Performed: 16:31:21 PTAGE: 67 years EKG: ATRIAL FIBRILLATION WITH RAPID VENTRICULAR RESPONSE WITH ABERRANT CONDUCTION OR VENTRICULAR PREMATURE COMPLEXES INDETERMINATE AXIS LOW QRS VOLTAGE IN EXTREMITY LEADS ANTEROSEPTAL MYOCARDIAL IN FARCTION ST DEPRESSION, CONSIDER SUBENDOCARDIAL INJURY ABNORMAL ECG NO PREVIOUS TRACING DOCTOR: Henna Lovelace Interpretating Date/Time 05/05/2017 14:28:18
--- NOTE | 2017-05-05 16:20 | ECHRPT ---
Indication: S/P V FIB ARREST, ATRIAL FIB/FLUTTER CONCLUSIONS The left ventricular systolic function is severely reduced with an estimated ejection fraction in th e range of 25-30%. There is global left ventricular dysfunction. Mild MR which is central (possible coaptation problem). There is mild to moderate tricuspid valve regurgitation. BP: 111 / 81 HR: 91 Rhythm: Atrial fibrillation, Atrial flut ter MEASUREMENTS (Male / Female) Normal Values Technical Quality:Fair 2D ECHO LV Diastolic Diameter PLAX 4.8 cm 4.2 - 5.9 / 3.9 - 5.3 cm LV Systolic Diameter PLAX 3.9 cm IVS Diastolic Thickness 0.8 cm 0.6 - 1.0 / 0.6 - 0.9 cm LVPW Diastolic Thickness 0.8 cm 0.6 - 1.0 / 0.6 - 0.9 cm LV Relative Wall Thickness 0.3 RV Internal Dim ED PLAX 2.4 cm LVOT Diameter 2.2 cm Aortic Root Diameter 3.3 cm LA Systolic Diameter LX 3.5 cm 3.0 - 4.0 / 2.7 - 3.8 cm M-MODE AV Cusp Separation MM 2.5 cm DOPPLER AV Peak Velocity 93.0 cm/s AV Peak Gradient 3.5 mmHg AV Mean Gradient 1.5 mmHg AV Velocity Time Integral 15.7 cm LVOT Peak Velocity 66.4 cm/s LVOT Peak Gradient 1.8 mmHg LVOT Velocity Time Integral 10.5 cm AV Area Cont Eq vti 2.5 cm AV Area Cont Eq pk 2.7 cm Mitral E Point Velocity 97.7 cm/s LV E' Lateral Velocity 9.3 cm/s Mitral E to LV E' Lateral Ratio 10.5 LV E' Septal Velocity 9.9 cm/s Mitral E to LV E' Septal Ratio 9.8 TR Peak Velocity 239.0 cm/s TR Peak Gradient 22.8 mmHg Right Atrial Pressure 10.0 mmHg Pulmonary Artery Systolic Pressu 32.8 mmHg Right Ventricular Systolic Press 32.8 mmHg PV Peak Velocity 42.1 cm/s PV Peak Gradient 0.7 mmHg FINDINGS LEFT VENTRICLE Normal left ventricular size. Wall thickness is normal. The left ventricular systolic function is severely reduced with an estimated ejection fraction in th e range of 25-30%. There is global left ventricular dysfunction. RIGHT VENTRICLE Normal right ventricular size and systolic function. LEFT ATRIUM The left atrial size is moderately dilated. RIGHT ATRIUM The right atrial size is [id number] dilated. ATRIAL SEPTUM Normal atrial septal thickness without atrial level shunting by limited color doppler interrogation. AORTA The aortic root and proximal ascending aorta are normal in size on limited imaging. MITRAL VALVE Probable mild posterior mitral valve prolapse. Mild MR which is central (possible coaptation problem) No mitral valve stenosis. AORTIC VALVE Trileaflet aortic valve. No aortic valve stenosis or regurgitation. TRICUSPID VALVE There is mild to moderate tricuspid valve regurgitation. The estimated pulmonary arterial pressure is 32.8 mmHg. Structurally normal tricuspid valve. No tricuspid valve stenosis. PULMONARY VALVE No pulmonary valve regurgitation or stenosis. VESSELS The inferior vena cava is normal in size. PERICARDIUM No pericardial effusion. Shamar Clark DO (Electronically Signed) Final Date:05 May 2017 16:19
--- NOTE | 2017-05-05 17:28 | MB ---
cc: RENAY BARRETO M.D., ROHIT K. M.D. DATE OF CONSULTATION: 05/05/2017 REASON FOR CONSULTATION: Traumatic brain injury. HISTORY OF PRESENT ILLNESS 67-year-old female was brought to [facility] after she suffered from cardiac arrest with ventricular fibrillation following a syncopal episode and became unresponsive and fell backward and struck the back of head on the ground. She was resuscitated for 40 minutes and defibrillated six times along with multiple doses of epinephrine. She has a history of atrial fibrillation and is on Xarelto anticoagulant therapy. She was intubated and was resuscitated and workup included CT scan of the head which reveals a small areas of traumatic subarachnoid hemorrhage along the cortical surface of left frontal and right frontal and parietal lobes without mass effect or midline shift. There is a left temporal skull base fracture noted also. CT of cervical spine does not reveal any fractures. Initial Amy coma score was three with equal pupils and subsequently after resuscitation she started to respond further. Although was not following commands. PAST MEDICAL HISTORY Atrial fibrillation Syncope MEDICATIONS: medications that she is on Xarelto The rest of the list of medications is not known. ALLERGIES NO KNOWN DRUG ALLERGIES SOCIAL HISTORY She is a . It is unknown whether she has any history of alcohol, or tobacco use, she is comatose and unresponsive. REVIEW OF SYSTEMS Unobtainable. FAMILY HISTORY Unobtainable. LABORATORY FINDINGS White blood cell count 11.6, hemoglobin 13.0, platelet count 131, PT 11.3, INR 1.1, PTT 22, sodium 140, potassium 3.5, BUN 20, creatinine 0.66, glucose is 167, troponin is 0.70 initially and subsequent 0.47. PHYSICAL EXAMINATION VITAL SIGNS Temperature 988.6, pulse is 73, respiratory rate 66, respiratory 16, blood, heart rate 66, blood pressure 107/55, oxygen saturation 97 per 40% FIO2 HEAD, EYES, EARS, NOSE, AND THROAT: Head: She has a left scalp hematoma and small laceration which is better. NECK: Neck is supple with no guarding or rigidity. CHEST: Clear bilaterally HEART: Irregular rate and rhythm, although it is controlled. No murmurs. Abdomen: Soft, nontender. No hepatosplenomegaly. Extremities: No cyanosis, edema. SKIN: Warm and dry with no rashes and left scalp laceration with some scalp hematoma noted. IN GENERAL: She is a elderly female, well-nourished is an intubated and sedated and on ventilator support. NEUROLOGIC EXAMINATION When she does open her eyes to verbal stimulation. She will track pupils are 4 mm and react down 2, she will move upper and lower extremities to stimulation but does not follow commands. IMPRESSION Ventricular fibrillation cardiac arrest with a history of chronic atrial fibrillation with elevated troponins on Xarelto anticoagulant therapy. This is been corrected with a Keycentra infusion. 2. Syncopal episode with a subsequent traumatic brain injury with a nondisplaced left temporal skull fracture and small areas of bihemispheric traumatic subarachnoid hemorrhage without mass effect. 3. Respiratory failure with associated aspiration pneumonia. PLAN The patient's neurological status is improving and she is opening her eyes and moving spontaneously although not following commands yet. Small areas of traumatic subarachnoid hemorrhage do not require any intervention. It is unclear whether she may have suffered from a cerebral ischemic event also given the length of her cardiac resuscitation. I will followup CT scan of the head will be obtained today to rule out any progression of the small areas of the traumatic subarachnoid hemorrhage. I would recommend gastrointestinal stress ulcer prophylaxis along with DVT prophylaxis and weaning her sedation and ventilator status depending on a cardiac / pulmonary condition as per the shells inspector. Her condition obviously is very critical. MD ADRIÁN Fenton/dameon /4:50 PM /5:07 PM
--- NOTE | 2017-05-05 17:37 | EKG ---
Date Performed: 05/04/2017 Time Performed: 20:07:43 PTAGE: 67 years EKG: ATRIAL FIBRILLATION WITH ABERRANT CONDUCTION OR VENTRICULAR PREMATURE COMPLEXES LOW QRS VOL TAGE IN EXTREMITY LEADS POSSIBLE ANTERIOR MYOCARDIAL INFARCTION , PROBABLY OLD MODERATE T-WAVE ABNORM ALITY, CONSIDER INFERIOR ISCHEMIA When compared to previous tracing, there has been increase in The p reviously noted marked ST segment changes in leads V5 and V6 has improved. The EKG remains significan tly abnormal and clinical corrolation will Be important. ABNORMAL ECG PREVIOUS TRACING : 05/04/2017 16.31 DOCTOR: Henna Lovelace Interpretating Date/Time 05/05/2017 17:35:27
--- NOTE | 2017-05-05 18:23 | MB ---
cc: DARA OLSEN DATE OF CONSULTATION 05/05/2017 INDICATION Ms. Camp is a 69-year-old white female with a history of chronic atrial fibrillation, nonischemic cardiomyopathy who was admitted after she developed syncopal episode while she was boarding a bus. She fell back and struck the back of her head on the ground. She was found to be in ventricular fibrillation. She was resuscitated for 40 minutes by paramedics. When she was brought to the emergency room she was partially responsive and was not a candidate for hypothermia protocol. She has recently had increased dyspnea but has not been having any chest pains. PAST MEDICAL HISTORY Positive for: 1. Chronic atrial fibrillation. 2. Mitral regurgitation. 3. Mitral valve prolapse. 4. Tricuspid regurgitation. 5. Nonischemic cardiomyopathy with normalization of left ventricular systolic function with JOSE L inhibitor therapy. 6. History of tonsillectomy. 7. Hysterectomy. MEDICATIONS At home include: 1. Xarelto. 2. Lisinopril. 4. Multivitamin. 5. Coenzyme Q-10. ALLERGIES None. SOCIAL HISTORY The patient does not smoke. She drinks alcohol socially. FAMILY HISTORY Positive for heart disease in her twin sister. REVIEW OF SYSTEMS Otherwise negative. PHYSICAL EXAMINATION VITAL SIGNS: Blood pressure 120/72, pulse 79 and irregular. HEENT: The patient is intubated on the ventilator. NECK: 2+ carotid upstrokes. No bruits. LUNGS: Clear. HEART: Irregularly irregular with 1/6 systolic murmur at the apex. ABDOMEN: Soft. No bruits. EXTREMITIES: Without edema. 2+ distal pulses. NEUROLOGIC: Examination is grossly nonfocal. EKG was reviewed and showed atrial fibrillation with increased ventricular response, PVCs, delayed R-wave progression of pericardial leads, indeterminate axis. LABORATORY DATA Hemoglobin 13.0. Potassium 3.5, creatinine 0.66, AST 105, ALT 77. Troponin 0.70 and 0.47. DIAGNOSES 1. Ventricular fibrillation arrest. 2. Head injury with subarachnoid bleeding. 3. Respiratory failure. 4. Chronic atrial fibrillation. 5. Nonischemic cardiomyopathy. 6. Mild to moderate mitral regurgitation. 7. Mild to moderate tricuspid regurgitation. DISPOSITION Ms. Cmap will be monitored in the ICU. She has been weaned off pressors. She is undergoing neurological evaluation. She will be weaned from the ventilator as tolerated. We will obtain echocardiogram to reevaluate her left ventricular function. She will be scheduled for cardiac catheterization once she is extubated and stable. She will most likely need the placement of implantable defibrillator as a secondary prevention for her ventricular fibrillation arrest. I will follow her for cardiology during her hospitalization. Dara Olsen MD [place]/KK /5:34 PM /5:59 PM MTDSammie
[2017-05-06] VITALS (18 sets, daily range): BP systolic 110–136; BP diastolic 42–75; PULSE 62–84; RESP 11–16; TEMP 98.3–99.7; O2SAT 94–100
[2017-05-06] MEDS: RESP: ALBUTEROL 2.5 MG/IPRATROPIUM 0.5 MG NEB (SCH) INH ×4 (03:43→20:03)
[2017-05-06] MEDS: CHLORHEXIDINE GLUCONATE 2 % 1 PACK (2 CLOTHS) TOP SCH ×2 (04:00)
[2017-05-06 06:28] LABS: AUTOMATED NEUTROPHIL # 8.6 TH/MM3 (1.8-7.7); BASOPHIL % 0.2 % (0.0-2.0); HEMATOCRIT 32.8 % (35.0-46.0); HEMO FLAGS DIFF FINAL; LYMPH % 6.4 % (9.0-44.0); LYMPHOCYTE # 0.6 TH/MM3 (1.0-4.8); MEAN CELL VOLUME 96.9 FL (80.0-100.0); MEAN CORPUSCULAR HEMOGLOBIN 32.5 PG (27.0-34.0); MEAN CORPUSCULAR HGB CONC 33.5 % (32.0-36.0); MONO % 6.2 % (0.0-8.0); NEUT % 87.2 % (16.0-70.0); PLATELET COUNT 100 TH/MM3 (150-450); RED BLOOD COUNT 3.38 MIL/MM3 (4.00-5.30); RED CELL DISTRIBUTION WIDTH 13.8 % (11.6-17.2); WHITE BLOOD COUNT 9.9 TH/MM3 (4.0-11.0)
[2017-05-06] MEDS: SODIUM CHLOR 0.9% 1000 ML INJ 1,000 ML IV SCH (06:38)
[2017-05-06 07:04] LABS: CALCIUM-PROTEIN CORRECTED 8.2 MG/DL (8.5-10.1); MAGNESIUM 2.3 MG/DL (1.5-2.5); POTASSIUM 3.8 MEQ/L (3.5-5.1); TOTAL BILIRUBIN ADULT 0.4 MG/DL (0.2-1.0)
[2017-05-06] MEDS: AMIODARONE INJ 450 MG in D5W (EXCEL BAG) INJ 241 ML IV PRN (07:42)
[2017-05-06] MEDS: levETIRAcetam INJ 100 ML IV SCH ×2 (08:09→20:02)
[2017-05-06] MEDS: DOCUSATE SODIUM 50 MG/SENNA 8.6 MG TAB PO SCH ×2 (08:09→20:05)
[2017-05-06] MEDS: FAMOTIDINE 20 MG/2 ML VIAL IV PUSH SCH ×2 (08:10→20:05)
--- NOTE | 2017-05-06 08:55 | HHI.CCPN ---
Subjective Remarks/Hospital Course 67-year-old female with past medical history of atrial fibrillation on Xarelto presents for a witnessed at 3:45 syncopal episode. She became unresponsive and fell backward and struck the back of her head on the ground. The CPR was started by bystanders and paramedics were called and found her in ventricular fibrillation. They worked her as an ACLS code for the next 40 minutes until they got return of circulation. She was defibrillated 6 times and received 4 doses of 1 mg epinephrine. She received 100 mg of bicarbonate and a total of 450 mg of amiodarone given over 2 separate dose SUBJ 05/05/17: Patient remains intubated off sedation. Opens eyes to repeated verbal command. Do not follow commands but spontaneously moving upper extremities. Remains on amiodarone infusion, in atrial fibrillation but rate controlled. Off all pressors at this time. (Dr. Berrios had evaluated the patient and decided against cooling due to improvement in neuro exam). CT of the head ordered to follow-up on traumatic subarachnoid hemorrhage 05/06: There is slow improvement in neuro exam. Opens eyes tracks very weakly follows commands on bilateral upper and lower extremities. 2-D echo shows LV systolic function is severely reduced with EF 25-30%. There is global left ventricular dysfunction. Mild MR which is central possible coaptation problem, mild to moderate tricuspid valve regurgitation. Dr. Wilkinson planning on cardiac cath on Thursday. Start CPAP trials Objective Vital Signs Date Time Temp Pulse Resp B/P (MAP) Pulse Ox O2 Delivery O2 Flow Rate FiO2 05/06/17 08:00 40 05/06/17 08:00 99.3 63 13 117/69 (85) 100 05/06/17 07:00 Mechanical Ventilator Intake and Output 05/06/17 05/06/17 05/07/17 08:00 16:00 00:00 Intake Total 1653 ml Output Total 400 ml Balance 1253 ml Result Diagram: 05/06/17 0535 05/06/17 0535 Imaging Last [address] 05/04/17 0679 Signed Impressions: Service Date/Time: Thursday, May 04, 2017 16:42 - CONCLUSION: 1. There are minimal acute subarachnoid blood products layering along the sulci of the right frontal lobe and left frontoparietal region. 2. There is a nondisplaced fracture of the left temporal bone and parietal bone. 3. Blood products are present within the sphenoid sinus. Octaviano Coronado MD Chest X-Ray 05/04/17 1629 Signed Impressions: Service Date/Time: Thursday, May 04, 2017 17:04 - CONCLUSION: 1. Satisfactory position of endotracheal tube as above. 2. Interstitial pulmonary edema Edin Fitch MD Cervical Spine CT 05/04/17 0000 Signed Impressions: Service Date/Time: Thursday, May 04, 2017 16:42 - CONCLUSION: 1. No evidence of acute cervical spine fracture. 2. Horizontal fracture left temporal bone. Edin Fitch MD Objective Remarks GENERAL: Well-nourished, well-developed female off all sedation, improving neuro exam SKIN: Warm and dry. HEAD: Normocephalic. Left ear canal has blood EYES: No scleral icterus. No injection or drainage. NECK: Supple, trachea midline. No JVD or lymphadenopathy. CARDIOVASCULAR: Atrial fibrillation rate controlled no murmur RESPIRATORY: Breath sounds equal bilaterally. No accessory muscle use. GASTROINTESTINAL: Abdomen soft, non-tender, nondistended. MUSCULOSKELETAL: No cyanosis, or edema. BACK: Nontender without obvious deformity. NEURO EXAM: Patient opens eyes tracks. Spontaneously moving upper extremities. Follows commands x4 with a delay A/P Assessment and Plan Neuro: Possible anoxic brain injury Traumatic subarachnoid hemorrhage, nondisplaced left temporal and parietal bone fracture - Clinically neuro exam showing improvement, patient following commands today - F/u CT head05/05 resolution of SAH, neurosurgery Dr. Carmona - Because of improvement in clinical exam plan for induced hypothermia was abandoned Resp: Acute Respiratory failure - Intubated for an airway protection - Start CPAP trials - CXR today - Vent bundle - DuoNeb's when necessary - Possible aspiration pneumonitis, f/u sputum culture CVS: V. fib arrest Chronic atrial fibrillation Nonischemic cardiomyopathy EF 25-30%. Mild to moderate MR TR Lactic acidosis Troponin elevation - Status post successful cardiopulmonary resuscitation - Start Coreg 6.25 mg twice a day and lisinopril 2.5 mg daily and discontinue amiodarone drip. Discussed with Dr. Wilkinson - Anticoagulation reversed with Kcentra due to subarachnoid hemorrhage - Cardiac cath on cleared for antiplatelet therapy by Dr. Carmona. Anticoagulation Okd after 1 week - AICD prior to DC - No cardiac catheterization emergently due to small ICH and inability to initiate antiplatelet therapy if an intervention provided - Serial EKGs and trend of troponins, trend lactic acid. Troponin is down trending - Echocardiogram EF 25-30%. There is global left ventricular dysfunction. Mild MR which is central (possible coaptation problem). Mild to moderate tricuspid valve regurgitation. GI: - Tolerating tube feeding - IV famotidine : - Monitor the renal function closely. Ramirez catheter ENDO: - Electrolyte replacement per protocol ID: Probable aspiration pneumonitis - F/u sputum culture, watch off antibiotics DVT GI prophylaxis - Teds SCDs - No pharmacological DVT prophylaxis due to small ICH start after 3 days - Pepcid Critical Care: The total critical care time was 35 minutes. Time to perform other separately billable procedures was not included in the critical care time. Kaylie Brumfield MD May 06, 2017 08:54
[2017-05-06] MEDS: SODIUM CHLORIDE 0.9% FLUSH 10 ML FLUSH IV FLUSH SCH ×2 (09:00→20:04)
[2017-05-06] MEDS: LISINOPRIL 5 MG TAB PO SCH (09:00)
[2017-05-06] MEDS: CARVEDILOL 6.25 MG TAB PO SCH ×2 (09:00→20:05)
--- NOTE | 2017-05-06 09:52 | RADRPT ---
EXAM DATE/TIME: 05/06/2017 09:10 [place] COMPARISON: CHEST SINGLE AP, May 05, 2017, 3:41. INDICATIONS : Respiratory disease. MEDICAL HISTORY : Cardiovascular disease. SURGICAL HISTORY : None. ENCOUNTER: Subsequent ACUITY: 4 - 6 days PAIN SCORE: Non-responsive. LOCATION: Bilateral chest FINDINGS: Stable ETT and NGT coursing beyond the GE junction. Stable left IJ central line. Cardiac silhouette i s enlarged with stable subtle hazy opacities at the lung bases. Remainder of exam is unchanged. CONCLUSION: 1. Stable tubes and lines. 2. Cardiomegaly with stable bilateral small pleural effusions and associated lower lung zone airspace disease. Martín Reynolds MD on May 06, 2017 at 9:49 Board Certified Radiologist. This report was verified electronically.
[2017-05-06] MEDS ORDERED: PILL SPLITTER OTHER PRN (10:00)
[2017-05-06] MEDS ORDERED: VANCOMYCIN INJ 1,000 MG in SODIUM CHLOR 0.9% 250 ML INJ 250 ML IV ONE (11:30)
[2017-05-06] MEDS ORDERED: POTASSIUM CHLOR 40 MEQ PREMIX 100 ML IV ONE (12:45)
[2017-05-06] MEDS ORDERED: FUROSEMIDE 20 MG/2 ML VIAL IV PUSH ONE (12:45)
--- NOTE | 2017-05-06 13:00 | PD.CARD.PN ---
Subjective Subjective Remarks Intubated, awake, PT in progress Objective Medications Current Medications Medications (Trade) Dose Ordered Sig/Tom Route Start Time Stop Time Status Last Admin (Zofran Inj) 4 mg Q6H PRN IV PUSH 05/04/17 17:00 (Duoneb Neb) 1 ampule Q6HR NEB INH 05/04/17 22:00 05/06/17 10:00 (Chlorhexidine 2% Cloth) 3 pack Taper DAILY@04 TOP 05/05/17 04:00 05/01/18 03:59 Potassium Chloride 100 ml @ 50 mls/hr Q2H PRN IV 05/04/17 17:00 Potassium Chloride 100 ml @ 50 mls/hr Q2H PRN IV 05/04/17 17:00 (K-Lyte Cl Eff) 50 meq UNSCH PRN PO 05/04/17 17:00 Potassium Chloride 100 ml @ 25 mls/hr UNSCH PRN IV 05/04/17 17:00 Potassium Chloride 100 ml @ 50 mls/hr Q2H PRN IV 05/04/17 17:00 Magnesium Sulfate 4 gm/Sodium Chloride 100 ml @ 50 mls/hr UNSCH PRN IV 05/04/17 17:00 (Mag-Ox) 800 mg UNSCH PRN PO 05/04/17 17:00 Magnesium Sulfate 2 gm/Sodium Chloride 100 ml @ 50 mls/hr UNSCH PRN IV 05/04/17 17:00 (K-Phos) 2,000 mg Q4H PRN PO 05/04/17 17:00 Sodium Phosphate 30 mmol/Sodium Chloride 250 ml @ 42 mls/hr UNSCH PRN IV 05/04/17 17:00 (K-Phos) 2,000 mg UNSCH PRN PO/TUBE 05/04/17 17:00 Potassium Phosphate 30 mmol/ Sodium Chloride 260 ml @ 42 mls/hr UNSCH PRN IV 05/04/17 17:00 05/05/17 09:01 Levetriacetam 100 ml @ 400 mls/hr Q12HR IV 05/04/17 21:00 05/06/17 08:09 (Brethine Inj) 1 mg UNSCH PRN SQ 05/04/17 19:45 Amiodarone HCl 450 mg/Dextrose 250 ml @ 33.33 mls/ hr TITRATE PRN IV 05/04/17 19:45 12/6/17 07:42 (NS Flush) 2 ml UNSCH PRN IV FLUSH 05/04/17 19:45 (NS Flush) 2 ml BID IV FLUSH 05/04/17 21:00 05/06/17 09:00 (Tylenol) 650 mg Q6H PRN PO 05/04/17 19:45 05/05/17 06:58 (Pepcid Inj) 20 mg Q12HR IV PUSH 05/04/17 21:00 05/06/17 08:10 (Duoneb Neb) 1 ampule Q2HR NEB PRN INH 05/04/17 19:45 Miscellaneous Information 1 Q361D XX 05/04/17 19:45 (Chlorhexidine 2% Cloth) 3 pack Taper DAILY@04 TOP 05/05/17 04:00 05/01/18 03:59 (Chlorhexidine 2% Cloth) 3 pack UNSCH PRN TOP 05/04/17 19:45 (Yaneth-Colace) 1 tab BID PO 05/04/17 21:00 05/06/17 08:09 (Milk Of Magnesia Liq) 30 ml Q12H PRN PO 05/04/17 19:45 (Senokot) 17.2 mg Q12H PRN PO 05/04/17 19:45 (Dulcolax Supp) 10 mg DAILY PRN RECTAL 05/04/17 19:45 (Lactulose Liq) 30 ml DAILY PRN PO 05/04/17 19:45 (Prinivil) 2.5 mg DAILY PO 05/06/17 09:00 05/06/17 09:00 (Coreg) 6.25 mg Q12HR PO 05/06/17 09:00 05/06/17 09:00 (Pill Splitter) 1 ea UNSCH PRN OTHER 05/06/17 10:00 (Lasix Inj) 20 mg ONCE ONCE IV PUSH 05/06/17 12:45 05/06/17 12:46 UNV Potassium Chloride 100 ml @ 25 mls/hr BOLUS ONCE IV 05/06/17 12:45 05/06/17 16:44 UNV Vital Signs / I&O Vital Signs Date Time Temp Pulse Resp B/P (MAP) Pulse Ox O2 Delivery O2 Flow Rate FiO2 05/06/17 12:03 100 40 05/06/17 12:00 98.3 62 11 120/42 (68) 100 05/06/17 12:00 40 05/06/17 12:00 62 05/06/17 10:00 68 05/06/17 08:00 40 05/06/17 08:00 99.3 63 13 117/69 (85) 100 05/06/17 08:00 72 05/06/17 07:42 83 118/65 05/06/17 07:27 100 40 05/06/17 07:27 40 05/06/17 07:00 100 Mechanical Ventilator 40 05/06/17 06:00 84 05/06/17 04:02 100 40 05/06/17 04:00 99.3 74 16 110/64 (79) 100 05/06/17 04:00 74 05/06/17 04:00 40 05/06/17 02:00 78 05/06/17 01:02 98 40 05/06/17 00:00 40 05/06/17 00:00 76 05/06/17 00:00 99.3 76 16 125/74 (91) 100 05/05/17 22:00 77 05/05/17 20:00 40 05/05/17 20:00 99.1 76 16 124/67 (86) 100 Arterial Line 05/05/17 20:00 76 05/05/17 19:44 98 40 05/05/17 19:00 100 Mechanical Ventilator 40 05/05/17 18:45 74 130/66 05/05/17 18:00 76 05/05/17 17:28 100 40 05/05/17 16:00 79 05/05/17 16:00 98.6 79 16 97 05/05/17 16:00 122/72 (89) 05/05/17 14:00 66 I/O 05/05/17 05/05/17 05/05/17 05/06/17 05/06/17 05/06/17 07:00 15:00 23:00 07:00 15:00 23:00 Intake Total 1274 ml 800 ml 1255 ml 1653 ml Output Total 800 ml 525 ml 400 ml Balance 474 ml 800 ml 730 ml 1253 ml Intake IV Total 1274 ml 800 ml 1100 ml 1213 ml Tube Feeding 155 ml 440 ml Output Urine Total 625 ml 475 ml 350 ml Stool Total 175 ml 50 ml 50 ml # Bowel Movements 2 Physical Exam GENERAL: Intubated, awake, in NAD SKIN: Warm and dry. HEAD: Normocephalic. EYES: No scleral icterus. No injection or drainage. NECK: Supple, trachea midline. No JVD or lymphadenopathy. CARDIOVASCULAR: Irregular, no murmur, gallops, or rubs. RESPIRATORY: Breath sounds equal bilaterally. No accessory muscle use. GASTROINTESTINAL: Abdomen soft, non-tender, nondistended. MUSCULOSKELETAL: No cyanosis, or edema. Laboratory Laboratory Tests Test 05/06/17 05:35 White Blood Count 9.9 TH/MM3 Red Blood Count 3.38 MIL/MM3 Hemoglobin 11.0 GM/DL Hematocrit 32.8 % Mean Corpuscular Volume 96.9 FL Mean Corpuscular Hemoglobin 32.5 PG Mean Corpuscular Hemoglobin Concent 33.5 % Red Cell Distribution Width 13.8 % Platelet Count 100 TH/MM3 Mean Platelet Volume 8.8 FL Neutrophils (%) (Auto) 87.2 % Lymphocytes (%) (Auto) 6.4 % Monocytes (%) (Auto) 6.2 % Eosinophils (%) (Auto) 0.0 % Basophils (%) (Auto) 0.2 % Neutrophils # (Auto) 8.6 TH/MM3 Lymphocytes # (Auto) 0.6 TH/MM3 Monocytes # (Auto) 0.6 TH/MM3 Eosinophils # (Auto) 0.0 TH/MM3 Basophils # (Auto) 0.0 TH/MM3 CBC Comment DIFF FINAL Differential Comment Blood Urea Nitrogen 11 MG/DL Creatinine 0.48 MG/DL Random Glucose 127 MG/DL Total Protein 5.5 GM/DL Albumin 2.6 GM/DL Calcium Level 7.3 MG/DL Phosphorus Level 1.4 MG/DL Magnesium Level 2.3 MG/DL Alkaline Phosphatase 85 U/L Aspartate Amino Transf (AST/SGOT) 57 U/L Alanine Aminotransferase (ALT/SGPT) 57 U/L Total Bilirubin 0.4 MG/DL Sodium Level 143 MEQ/L Potassium Level 3.8 MEQ/L Chloride Level 112 MEQ/L Carbon Dioxide Level 24.0 MEQ/L Anion Gap 7 MEQ/L Estimat Glomerular Filtration Rate 129 ML/MIN Protein Corrected Calcium 8.2 MG/DL Imaging Last 24 hours Impressions Chest X-Ray 05/06/17 0000 Signed Impressions: Service Date/Time: Saturday, May 06, 2017 09:10 - CONCLUSION: 1. Stable tubes and lines. 2. Cardiomegaly with stable bilateral small pleural effusions and associated lower lung zone airspace disease. Martín Reynolds MD Assessment and Plan Problem List: (1) Cardiac arrest ICD Codes: I46.9 - Cardiac arrest, cause unspecified Status: Acute (2) Ventricular fibrillation ICD Codes: I49.01 - Ventricular fibrillation Status: Acute (3) Subarachnoid hemorrhage following injury ICD Codes: S06.6X9A - Traumatic subarachnoid hemorrhage with loss of consciousness of unspecified duration, initial encounter Status: Acute (4) Atrial fibrillation ICD Codes: I48.91 - Unspecified atrial fibrillation (5) Respiratory failure ICD Codes: J96.90 - Respiratory failure, unspecified, unspecified whether with hypoxia or hypercapnia (6) Cardiomyopathy ICD Codes: I42.9 - Cardiomyopathy, unspecified Assessment and Plan Echo with severe LV dysfunction. Start lisinopril and carvedilol, and titrate. DC amio. Wean vent as tolerated. MS improving. Full anticoagulation in 1 week as recommended by neurosurgery. Cath tentatively next week. ICD placement before discharge. D/w pt's family. Problem Qualifiers (1) Subarachnoid hemorrhage following injury: Qualified Codes: S06.6X3A - Traumatic subarachnoid hemorrhage with loss of consciousness of 1 hour to 5 hours 59 minutes, initial encounter Dara Wilkinson MD May 06, 2017 13:00
--- NOTE | 2017-05-06 16:36 | HHI.NSPN ---
(Chad Hall) History Chief Complaint: closed head injury (Chad Hall) Interval History 67-year-old female was brought to [facility] after she suffered from cardiac arrest with ventricular fibrillation following a syncopal episode and became unresponsive and fell backward and struck the back of head on the ground. She was resuscitated for 40 minutes and defibrillated six times along with multiple doses of epinephrine. She has a history of atrial fibrillation and is on Xarelto anticoagulant therapy. She was intubated and was resuscitated and workup included CT scan of the head which reveals a small areas of traumatic subarachnoid hemorrhage along the cortical surface of left frontal and right frontal and parietal lobes without mass effect or midline shift. There is a left temporal skull base fracture noted also. CT of cervical spine does not reveal any fractures. Initial Amy coma score was three with equal pupils and subsequently after resuscitation she started to respond further. Although was not following commands. 05/06/17: Patient opens eyes and follow commands. She denies any headache, chest pain, abdominal pain. She remains intubated however is working closer to being extubated. (Chad Hall) Review of Systems General: Negative for: fever, chills, insomnia Respiratory: Negative for: shortness of breath, cough, sputum Cardiovascular: Negative for: chest pain, palpitations, orthopnea Gastrointestinal: Negative for: nausea, vomitting (Chad Hall) Exam Results Vital Signs Date Time Temp Pulse Resp B/P (MAP) Pulse Ox O2 Delivery O2 Flow Rate FiO2 05/06/17 16:00 99.7 75 12 123/71 (88) 100 05/06/17 16:00 40 05/06/17 07:00 Mechanical Ventilator Intake and Output 05/06/17 05/06/17 05/07/17 08:00 16:00 00:00 Intake Total 1653 ml 250 ml Output Total 400 ml Balance 1253 ml 250 ml (Chad Hall) Physical Examination GENERAL: Patient resting comfortably in bed in no acute distress. Vital signs are stable. HEAD: Normocephalic, atraumatic. EYES: Pupils equal. Sclera non icteric. RESPIRATORY: CTA Bilaterally. She is intubated on CPAP. 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 NEUROLOGIC: Patient awakens to voice. Pupils are 3 mm bilaterally, reactive bilaterally. She follows simple commands. She nods her head to questions that she is comfortable. (Chad Hall) Lab, Micro, Other Results Last Impressions Chest X-Ray 05/06/17 0000 Signed Impressions: Service Date/Time: Saturday, May 06, 2017 09:10 - CONCLUSION: 1. Stable tubes and lines. 2. Cardiomegaly with stable bilateral small pleural effusions and associated lower lung zone airspace disease. Martín Reynolds MD Head CT 05/05/17 0000 Signed Impressions: Service Date/Time: Friday, May 05, 2017 11:33 - CONCLUSION: Negative for acute process. Chandra Mercado MD FACR Cervical Spine CT 05/04/17 0000 Signed Impressions: Service Date/Time: Thursday, May 04, 2017 16:42 - CONCLUSION: 1. No evidence of acute cervical spine fracture. 2. Horizontal fracture left temporal bone. Edin Fitch MD Laboratory Tests Test 05/06/17 05:35 05/06/17 11:55 White Blood Count 9.9 TH/MM3 Red Blood Count 3.38 MIL/MM3 Hemoglobin 11.0 GM/DL Hematocrit 32.8 % Mean Corpuscular Volume 96.9 FL Mean Corpuscular Hemoglobin 32.5 PG Mean Corpuscular Hemoglobin Concent 33.5 % Red Cell Distribution Width 13.8 % Platelet Count 100 TH/MM3 Mean Platelet Volume 8.8 FL Neutrophils (%) (Auto) 87.2 % Lymphocytes (%) (Auto) 6.4 % Monocytes (%) (Auto) 6.2 % Eosinophils (%) (Auto) 0.0 % Basophils (%) (Auto) 0.2 % Neutrophils # (Auto) 8.6 TH/MM3 Lymphocytes # (Auto) 0.6 TH/MM3 Monocytes # (Auto) 0.6 TH/MM3 Eosinophils # (Auto) 0.0 TH/MM3 Basophils # (Auto) 0.0 TH/MM3 CBC Comment DIFF FINAL Differential Comment Blood Urea Nitrogen 11 MG/DL Creatinine 0.48 MG/DL Random Glucose 127 MG/DL Total Protein 5.5 GM/DL Albumin 2.6 GM/DL Calcium Level 7.3 MG/DL Phosphorus Level 1.4 MG/DL Magnesium Level 2.3 MG/DL Alkaline Phosphatase 85 U/L Aspartate Amino Transf (AST/SGOT) 57 U/L Alanine Aminotransferase (ALT/SGPT) 57 U/L Total Bilirubin 0.4 MG/DL Sodium Level 143 MEQ/L Potassium Level 3.8 MEQ/L Chloride Level 112 MEQ/L Carbon Dioxide Level 24.0 MEQ/L Anion Gap 7 MEQ/L Estimat Glomerular Filtration Rate 129 ML/MIN Protein Corrected Calcium 8.2 MG/DL Nasal Screen MRSA (PCR) MRSA NOT DETECTED 05/06/17 05/06/17 05/07/17 15:00 23:00 07:00 Intake Total 250 ml Balance 250 ml Intake IV Total 250 ml (Chad Hall) Medical Decision Making Impression and Plan A: Ventricular fibrillation cardiac arrest with a history of chronic atrial fibrillation with elevated troponins on Xarelto anticoagulant therapy. This is been corrected with a Keycentra infusion. 2. Syncopal episode with a subsequent traumatic brain injury with a nondisplaced left temporal skull fracture and small areas of bihemispheric traumatic subarachnoid hemorrhage without mass effect. 3. Respiratory failure with associated aspiration pneumonia. PLAN Continue to monitor neuro exam Continue with critical care. Continue with cardiac care. Continue with SCDs for DVT prophylaxis. Discussed plan with RN. (Chad Hall) Attending Statement The exam, history, and the medical decision-making described in the above note were completed with the assistance of the mid-level provider. I reviewed and agree with the findings presented. I attest that I had a [id number] encounter with the patient on the same day, and personally performed and documented my assessment and findings in the medical record. Improving neurologic examination. She is now opening her eyes spontaneously and tracking and follows commands with moving all 4 extremities. Weaning ventilatory status and possible extubation. Follow-up CT scan with resolved small areas of traumatic subarachnoid hemorrhage. 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 Discussed with certified master locksmith Dr. Brumfield and nursing staff. (Manpreet Carmona MD) Chad Hall May 06, 2017 16:36 Manrpeet Carmona MD May 06, 2017 16:42
[2017-05-07] VITALS (18 sets, daily range): BP systolic 108–130; BP diastolic 61–75; PULSE 66–83; RESP 13–23; TEMP 97–99.3; O2SAT 94–100
[2017-05-07] MEDS: RESP: ALBUTEROL 2.5 MG/IPRATROPIUM 0.5 MG NEB (SCH) INH ×4 (03:27→19:33)
[2017-05-07] MEDS: CHLORHEXIDINE GLUCONATE 2 % 1 PACK (2 CLOTHS) TOP SCH ×2 (03:50)
[2017-05-07] MEDS ORDERED: FUROSEMIDE 20 MG/2 ML VIAL IV PUSH STA (07:06)
[2017-05-07] MEDS ORDERED: POTASSIUM CHLORIDE 25 MEQ EFFERVESCENT TAB PO ONE (07:15)
--- NOTE | 2017-05-07 07:33 | RADRPT ---
EXAM DATE/TIME: 05/07/2017 07:00 [place] COMPARISON: CHEST SINGLE AP, May 06, 2017, 9:10. INDICATIONS : Preparing for extubation MEDICAL HISTORY : Cardiovascular disease. SURGICAL HISTORY : None. ENCOUNTER: Subsequent ACUITY: 4 - 6 days PAIN SCORE: Non-responsive. LOCATION: chest FINDINGS: A single view of the chest demonstrates the endotracheal tube, nasogastric tube and left IJ central l ine all in good position. Lungs remain grossly clear. There is no visible pneumothorax.. The cardiom ediastinal contours are unremarkable. Osseous structures are intact. CONCLUSION: Unremarkable single view the chest with tubes and catheters in good position. The left hemidiaphragm is slightly more indistinct than previously could represent some early atelectasis. Hernan Cota MD on May 07, 2017 at 7:31 Board Certified Radiologist. This report was verified electronically.
[2017-05-07] MEDS: DOCUSATE SODIUM 50 MG/SENNA 8.6 MG TAB PO SCH ×2 (07:51→20:37)
--- NOTE | 2017-05-07 07:56 | HHI.CCPN ---
Subjective Remarks/Hospital Course 67-year-old female with past medical history of atrial fibrillation on Xarelto presents for a witnessed at 3:45 syncopal episode. She became unresponsive and fell backward and struck the back of her head on the ground. The CPR was started by bystanders and paramedics were called and found her in ventricular fibrillation. They worked her as an ACLS code for the next 40 minutes until they got return of circulation. She was defibrillated 6 times and received 4 doses of 1 mg epinephrine. She received 100 mg of bicarbonate and a total of 450 mg of amiodarone given over 2 separate dose SUBJ 05/05/17: Patient remains intubated off sedation. Opens eyes to repeated verbal command. Do not follow commands but spontaneously moving upper extremities. Remains on amiodarone infusion, in atrial fibrillation but rate controlled. Off all pressors at this time. (Dr. Berrios had evaluated the patient and decided against cooling due to improvement in neuro exam). CT of the head ordered to follow-up on traumatic subarachnoid hemorrhage 05/06: There is slow improvement in neuro exam. Opens eyes tracks very weakly follows commands on bilateral upper and lower extremities. 2-D echo shows LV systolic function is severely reduced with EF 25-30%. There is global left ventricular dysfunction. Mild MR which is central possible coaptation problem, mild to moderate tricuspid valve regurgitation. Dr. Wilkinson planning on cardiac cath on Thursday. Start CPAP trials 05/07: No acute events overnight. Urine output 2100 with Lasix. Appears more awake, following commands. Able to move all extremities. I have also started on Aldactone today Objective Vital Signs Date Time Temp Pulse Resp B/P (MAP) Pulse Ox O2 Delivery O2 Flow Rate FiO2 05/07/17 07:20 100 30 05/07/17 04:00 98.1 73 16 111/71 (84) 05/06/17 19:30 Mechanical Ventilator Intake and Output 05/07/17 05/07/17 05/08/17 08:00 16:00 00:00 Intake Total 733 ml Output Total 550 ml Balance 183 ml Result Diagram: 05/06/17 0535 05/06/17 0535 Imaging Last [address] 05/04/17 1629 Signed Impressions: Service Date/Time: Thursday, May 04, 2017 16:42 - CONCLUSION: 1. There are minimal acute subarachnoid blood products layering along the sulci of the right frontal lobe and left frontoparietal region. 2. There is a nondisplaced fracture of the left temporal bone and parietal bone. 3. Blood products are present within the sphenoid sinus. Octaviano Coronado MD Chest X-Ray 05/04/17 1629 Signed Impressions: Service Date/Time: Thursday, May 04, 2017 17:04 - CONCLUSION: 1. Satisfactory position of endotracheal tube as above. 2. Interstitial pulmonary edema Edin Fitch MD Cervical Spine CT 05/04/17 0000 Signed Impressions: Service Date/Time: Thursday, May 04, 2017 16:42 - CONCLUSION: 1. No evidence of acute cervical spine fracture. 2. Horizontal fracture left temporal bone. Edin Fitch MD Objective Remarks GENERAL: Well-nourished, well-developed female off all sedation, improving neuro exam SKIN: Warm and dry. HEAD: Normocephalic. EYES: No scleral icterus. No injection or drainage. NECK: Supple, trachea midline. No JVD or lymphadenopathy. CARDIOVASCULAR: Atrial fibrillation rate controlled no murmur RESPIRATORY: Breath sounds equal bilaterally. No accessory muscle use. GASTROINTESTINAL: Abdomen soft, non-tender, nondistended. MUSCULOSKELETAL: No cyanosis, or edema. BACK: Nontender without obvious deformity. NEURO EXAM: Patient opens eyes tracks. Spontaneously moving upper extremities. Follows commands x4 A/P Assessment and Plan Neuro: Traumatic subarachnoid hemorrhage, nondisplaced left temporal and parietal bone fracture Possible anoxic brain injury - Clinically neuro exam showing improvement, patient following commands today - F/u CT head05/05 resolution of SAH, neurosurgery Dr. Carmona - Because of improvement in clinical exam initial plan for induced hypothermia was abandoned Resp: Acute Respiratory failure - Intubated for an airway protection - SBT with extubation today - Vent bundle - DuoNeb's when necessary - Possible aspiration pneumonitis, f/u sputum culture negative CVS: V. fib arrest Chronic atrial fibrillation Nonischemic cardiomyopathy EF 25-30%. Mild to moderate MR TR Lactic acidosis Troponin elevation - Status post successful cardiopulmonary resuscitation - Started Coreg 6.25 mg twice a day and lisinopril 2.5 mg daily 05/06. Discussed with Dr. Wilkinson - Discontinued amiodarone drip 05/06 - Start Aldactone 25 mg po BID - Anticoagulation reversed with Kcentra due to subarachnoid hemorrhage - Cardiac cath on Thursday cleared for antiplatelet therapy by Dr. Carmona. Anticoagulation Okd after 1 week - AICD prior to DC - Echocardiogram EF 25-30%. There is global left ventricular dysfunction. Mild MR which is central (possible coaptation problem). Mild to moderate tricuspid valve regurgitation. GI: - Tolerating tube feeding-NPO for extubation - IV famotidine : - Monitor the renal function closely. Ramirez catheter - IV Lasix 40 mg 05/06 and 05/07 ENDO: - Electrolyte replacement per protocol ID: Probable aspiration pneumonitis - F/u sputum culture, watch off antibiotics DVT GI prophylaxis - Teds SCDs - No pharmacological DVT prophylaxis due to small ICH start after 3 days if ok with neurosurgery - Pepcid Critical Care: Level 3 Kaylie Brumfield MD May 07, 2017 07:56
[2017-05-07] MEDS: CARVEDILOL 6.25 MG TAB PO SCH ×2 (07:57→20:36)
[2017-05-07] MEDS: FAMOTIDINE 20 MG/2 ML VIAL IV PUSH SCH ×2 (07:57→20:39)
[2017-05-07] MEDS: LISINOPRIL 5 MG TAB PO SCH (07:57)
[2017-05-07] MEDS: SPIRONOLACTONE 25 MG TAB PO SCH ×2 (07:57→17:04)
[2017-05-07] MEDS: levETIRAcetam INJ 100 ML IV SCH ×2 (07:57→20:39)
[2017-05-07] MEDS: SODIUM CHLORIDE 0.9% FLUSH 10 ML FLUSH IV FLUSH SCH ×2 (07:58→20:59)
[2017-05-07 08:18] LABS: ALT (GPT) 49 U/L (10-53); ANION GAP 4 MEQ/L (5-15); AST (GOT) 41 U/L (15-37); BICARBONATE 27.9 MEQ/L (21.0-32.0); BLOOD UREA NITROGEN 12 MG/DL (7-18); CHLORIDE 110 MEQ/L (98-107); GLOMERULAR FILTRATION RATE 164 ML/MIN (>89); MAGNESIUM 2.1 MG/DL (1.5-2.5); POTASSIUM 3.8 MEQ/L (3.5-5.1); SODIUM (NA) 142 MEQ/L (136-145)
[2017-05-07 08:20] LABS: ALKALINE PHOSPHATASE 86 U/L (45-117); TOTAL BILIRUBIN ADULT 0.3 MG/DL (0.2-1.0)
--- NOTE | 2017-05-07 13:18 | PD.CARD.PN ---
Subjective Subjective Remarks Extubated, awake, no CP or SOB Objective Medications Current Medications Medications (Trade) Dose Ordered Sig/Tom Route Start Time Stop Time Status Last Admin (Zofran Inj) 4 mg Q6H PRN IV PUSH 05/04/17 17:00 (Duoneb Neb) 1 ampule Q6HR NEB INH 05/04/17 22:00 05/07/17 12:06 (Chlorhexidine 2% Cloth) 3 pack Taper DAILY@04 TOP 05/05/17 04:00 05/01/18 03:59 Potassium Chloride 100 ml @ 50 mls/hr Q2H PRN IV 05/04/17 17:00 Potassium Chloride 100 ml @ 50 mls/hr Q2H PRN IV 05/04/17 17:00 (K-Lyte Cl Eff) 50 meq UNSCH PRN PO 05/04/17 17:00 Potassium Chloride 100 ml @ 25 mls/hr UNSCH PRN IV 05/04/17 17:00 Potassium Chloride 100 ml @ 50 mls/hr Q2H PRN IV 05/04/17 17:00 Magnesium Sulfate 4 gm/Sodium Chloride 100 ml @ 50 mls/hr UNSCH PRN IV 05/04/17 17:00 (Mag-Ox) 800 mg UNSCH PRN PO 05/04/17 17:00 Magnesium Sulfate 2 gm/Sodium Chloride 100 ml @ 50 mls/hr UNSCH PRN IV 05/04/17 17:00 (K-Phos) 2,000 mg Q4H PRN PO 05/04/17 17:00 Sodium Phosphate 30 mmol/Sodium Chloride 250 ml @ 42 mls/hr UNSCH PRN IV 05/04/17 17:00 (K-Phos) 2,000 mg UNSCH PRN PO/TUBE 05/04/17 17:00 Potassium Phosphate 30 mmol/ Sodium Chloride 260 ml @ 42 mls/hr UNSCH PRN IV 05/04/17 17:00 05/05/17 09:01 Levetriacetam 100 ml @ 400 mls/hr Q12HR IV 05/04/17 21:00 05/07/17 07:57 (Brethine Inj) 1 mg UNSCH PRN SQ 05/04/17 19:45 Amiodarone HCl 450 mg/Dextrose 250 ml @ 33.33 mls/ hr TITRATE PRN IV 05/04/17 19:45 12/6/17 07:42 (NS Flush) 2 ml UNSCH PRN IV FLUSH 05/04/17 19:45 (NS Flush) 2 ml BID IV FLUSH 05/04/17 21:00 05/07/17 07:58 (Tylenol) 650 mg Q6H PRN PO 05/04/17 19:45 05/05/17 06:58 (Pepcid Inj) 20 mg Q12HR IV PUSH 05/04/17 21:00 05/07/17 07:57 (Duoneb Neb) 1 ampule Q2HR NEB PRN INH 05/04/17 19:45 Miscellaneous Information 1 Q361D XX 05/04/17 19:45 (Chlorhexidine 2% Cloth) 3 pack Taper DAILY@04 TOP 05/05/17 04:00 05/01/18 03:59 (Chlorhexidine 2% Cloth) 3 pack UNSCH PRN TOP 05/04/17 19:45 (Yaneth-Colace) 1 tab BID PO 05/04/17 21:00 05/06/17 20:05 (Milk Of Magnesia Liq) 30 ml Q12H PRN PO 05/04/17 19:45 (Senokot) 17.2 mg Q12H PRN PO 05/04/17 19:45 (Dulcolax Supp) 10 mg DAILY PRN RECTAL 05/04/17 19:45 (Lactulose Liq) 30 ml DAILY PRN PO 05/04/17 19:45 (Prinivil) 2.5 mg DAILY PO 05/06/17 09:00 05/07/17 07:57 (Coreg) 6.25 mg Q12HR PO 05/06/17 09:00 05/07/17 07:57 (Pill Splitter) 1 ea UNSCH PRN OTHER 05/06/17 10:00 (Aldactone) 25 mg BID@,18 PO 05/07/17 09:00 05/07/17 07:57 Vital Signs / I&O Vital Signs Date Time Temp Pulse Resp B/P (MAP) Pulse Ox O2 Delivery O2 Flow Rate FiO2 05/07/17 12:08 99 Nasal Cannula 1.00 05/07/17 12:00 98.2 80 13 111/61 (78) 98 05/07/17 12:00 80 05/07/17 10:00 71 05/07/17 08:10 98 Nasal Cannula 3.00 05/07/17 08:10 96 Nasal Cannula 3 05/07/17 08:00 97.0 80 15 130/67 (88) 98 05/07/17 08:00 40 05/07/17 08:00 73 05/07/17 07:20 100 30 05/07/17 07:19 30 05/07/17 07:00 100 Mechanical Ventilator 40 05/07/17 04:02 100 40 05/07/17 04:00 98.1 73 16 111/71 (84) 100 05/07/17 04:00 40 05/07/17 01:30 100 40 05/07/17 00:00 97.8 76 16 126/75 (92) 100 05/07/17 00:00 40 05/06/17 22:00 75 05/06/17 20:04 100 40 05/06/17 20:00 40 05/06/17 20:00 99.1 74 16 136/75 (95) 100 05/06/17 20:00 74 05/06/17 19:30 Mechanical Ventilator 40 05/06/17 18:00 73 05/06/17 16:00 99.7 75 12 123/71 (88) 100 05/06/17 16:00 100 40 05/06/17 16:00 40 05/06/17 16:00 75 05/06/17 14:00 67 I/O 05/06/17 05/06/17 05/06/17 05/07/17 05/07/17 05/07/17 07:00 15:00 23:00 07:00 15:00 23:00 Intake Total 1653 ml 250 ml 1375 ml 733 ml Output Total 400 ml 1550 ml 550 ml Balance 1253 ml 250 ml -175 ml 183 ml Intake IV Total 1213 ml 250 ml 1037 ml Tube Feeding 440 ml 338 ml 533 ml Other 200 ml Output Urine Total 350 ml 1550 ml 550 ml Stool Total 50 ml # Bowel Movements 0 2 Physical Exam GENERAL: Awake, in NAD SKIN: Warm and dry. HEAD: Normocephalic. EYES: No scleral icterus. No injection or drainage. NECK: Supple, trachea midline. No JVD or lymphadenopathy. CARDIOVASCULAR: Irregular, no murmur, gallops, or rubs. RESPIRATORY: Breath sounds equal bilaterally. No accessory muscle use. GASTROINTESTINAL: Abdomen soft, non-tender, nondistended. MUSCULOSKELETAL: No cyanosis, or edema. Laboratory Laboratory Tests Test 05/07/17 07:40 Blood Urea Nitrogen 12 MG/DL Creatinine 0.39 MG/DL Random Glucose 109 MG/DL Total Protein 5.9 GM/DL Albumin 2.7 GM/DL Calcium Level 8.1 MG/DL Phosphorus Level 1.7 MG/DL Magnesium Level 2.1 MG/DL Alkaline Phosphatase 86 U/L Aspartate Amino Transf (AST/SGOT) 41 U/L Alanine Aminotransferase (ALT/SGPT) 49 U/L Total Bilirubin 0.3 MG/DL Sodium Level 142 MEQ/L Potassium Level 3.8 MEQ/L Chloride Level 110 MEQ/L Carbon Dioxide Level 27.9 MEQ/L Anion Gap 4 MEQ/L Estimat Glomerular Filtration Rate 164 ML/MIN Imaging Last 24 hours Impressions Chest X-Ray 05/07/17 0000 Signed Impressions: Service Date/Time: May 07:00 - CONCLUSION: Unremarkable single view the chest with tubes and catheters in good position. The left hemidiaphragm is slightly more indistinct than previously could represent some early atelectasis. Hernan Cota MD Assessment and Plan Problem List: (1) Cardiac arrest ICD Codes: I46.9 - Cardiac arrest, cause unspecified Status: Acute (2) Ventricular fibrillation ICD Codes: I49.01 - Ventricular fibrillation Status: Acute (3) Subarachnoid hemorrhage following injury ICD Codes: S06.6X9A - Traumatic subarachnoid hemorrhage with loss of consciousness of unspecified duration, initial encounter Status: Acute (4) Atrial fibrillation ICD Codes: I48.91 - Unspecified atrial fibrillation (5) Respiratory failure ICD Codes: J96.90 - Respiratory failure, unspecified, unspecified whether with hypoxia or hypercapnia (6) Cardiomyopathy ICD Codes: I42.9 - Cardiomyopathy, unspecified Assessment and Plan Good progress, extubated. Echo with severe LV dysfunction. Started lisinopril and carvedilol, titrate as tolerated. Stay off amio. MS improving. Full anticoagulation in 1 week as recommended by neurosurgery. Cath, possibly EPS and ICD placement early next week. D/w pt and family. Problem Qualifiers (1) Subarachnoid hemorrhage following injury: Qualified Codes: S06.6X3A - Traumatic subarachnoid hemorrhage with loss of consciousness of 1 hour to 5 hours 59 minutes, initial encounter Dara Wilkinson MD May 07, 2017 13:18
--- NOTE | 2017-05-07 16:58 | HHI.NSPN ---
History Chief Complaint: closed head injury Interval History 67-year-old female was brought to [facility] after she suffered from cardiac arrest with ventricular fibrillation following a syncopal episode and became unresponsive and fell backward and struck the back of head on the ground. She was resuscitated for 40 minutes and defibrillated six times along with multiple doses of epinephrine. She has a history of atrial fibrillation and is on Xarelto anticoagulant therapy. She was intubated and was resuscitated and workup included CT scan of the head which reveals a small areas of traumatic subarachnoid hemorrhage along the cortical surface of left frontal and right frontal and parietal lobes without mass effect or midline shift. There is a left temporal skull base fracture noted also. CT of cervical spine does not reveal any fractures. Initial Amy coma score was three with equal pupils and subsequently after resuscitation she started to respond further. Although was not following commands. 05/06/17: Patient opens eyes and follow commands. She denies any headache, chest pain, abdominal pain. She remains intubated however is working closer to being extubated. 05/07/17: Patient awake. Denies headaches, nausea, weakness, chest pain, shortness of breath. She was extubated this morning. Review of Systems General: Negative for: fever, chills, insomnia Respiratory: Negative for: shortness of breath, cough, sputum Cardiovascular: Negative for: chest pain Gastrointestinal: Negative for: nausea, vomitting, diarrhea, constipation Exam Results Vital Signs Date Time Temp Pulse Resp B/P (MAP) Pulse Ox O2 Delivery O2 Flow Rate FiO2 05/07/17 16:00 80 05/07/17 15:21 95 Nasal Cannula 2.00 05/07/17 12:00 98.2 13 111/61 (78) 05/07/17 08:00 40 Intake and Output 05/07/17 05/07/17 05/08/17 08:00 16:00 00:00 Intake Total 733 ml Output Total 550 ml Balance 183 ml Physical Examination GENERAL: Patient resting comfortably in bed in no acute distress. Vital signs are stable. HEAD: Normocephalic, atraumatic. EYES: Pupils equal. Sclera non icteric. RESPIRATORY: CTA Bilaterally. She is extubated. 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 NEUROLOGIC: Patient awakens to voice. Pupils are 3 mm bilaterally, reactive bilaterally. She follows simple commands. She has a hoarse voice but is able to state her name. Lab, Micro, Other Results Last Impressions Chest X-Ray 05/07/17 0000 Signed Impressions: Service Date/Time: May 07:00 - CONCLUSION: Unremarkable single view the chest with tubes and catheters in good position. The left hemidiaphragm is slightly more indistinct than previously could represent some early atelectasis. Hernan Cota MD Head CT 05/05/17 0000 Signed Impressions: Service Date/Time: Friday, May 05, 2017 11:33 - CONCLUSION: Negative for acute process. Chandra Mercado MD FACR Cervical Spine CT 05/04/17 0000 Signed Impressions: Service Date/Time: Thursday, May 04, 2017 16:42 - CONCLUSION: 1. No evidence of acute cervical spine fracture. 2. Horizontal fracture left temporal bone. Edin Fitch MD Laboratory Tests Test 05/07/17 07:40 Blood Urea Nitrogen 12 MG/DL Creatinine 0.39 MG/DL Random Glucose 109 MG/DL Total Protein 5.9 GM/DL Albumin 2.7 GM/DL Calcium Level 8.1 MG/DL Phosphorus Level 1.7 MG/DL Magnesium Level 2.1 MG/DL Alkaline Phosphatase 86 U/L Aspartate Amino Transf (AST/SGOT) 41 U/L Alanine Aminotransferase (ALT/SGPT) 49 U/L Total Bilirubin 0.3 MG/DL Sodium Level 142 MEQ/L Potassium Level 3.8 MEQ/L Chloride Level 110 MEQ/L Carbon Dioxide Level 27.9 MEQ/L Anion Gap 4 MEQ/L Estimat Glomerular Filtration Rate 164 ML/MIN Medical Decision Making Impression and Plan A: Ventricular fibrillation cardiac arrest with a history of chronic atrial fibrillation with elevated troponins on Xarelto anticoagulant therapy. This is been corrected with a Keycentra infusion. 2. Syncopal episode with a subsequent traumatic brain injury with a nondisplaced left temporal skull fracture and small areas of bihemispheric traumatic subarachnoid hemorrhage without mass effect. 3. Respiratory failure with associated aspiration pneumonia. PLAN Continue to monitor neuro exam Continue with critical care. Continue with cardiac care. Continue with SCDs for DVT prophylaxis. Discussed plan with MARK. Chad Hall May 07, 2017 4:58 pm
[2017-05-07] MEDS: METOPROLOL TARTRATE 5 MG/5 ML VIAL IV PUSH SCH ×2 (18:04→23:10)
[2017-05-08] VITALS (14 sets, daily range): BP systolic 99–141; BP diastolic 54–86; PULSE 62–89; RESP 13–20; TEMP 98.2–99; O2SAT 95–100
[2017-05-08] MEDS: CHLORHEXIDINE GLUCONATE 2 % 1 PACK (2 CLOTHS) TOP SCH ×2 (03:05)
[2017-05-08] MEDS: RESP: ALBUTEROL 2.5 MG/IPRATROPIUM 0.5 MG NEB (SCH) INH ×4 (03:31→21:24)
[2017-05-08] MEDS: METOPROLOL TARTRATE 5 MG/5 ML VIAL IV PUSH SCH ×2 (05:15→11:15)
--- NOTE | 2017-05-08 06:52 | PD.CARD.PN ---
Subjective Subjective Remarks Awake, alert, no CP or SOB, good progress Objective Medications Current Medications Medications (Trade) Dose Ordered Sig/Tom Route Start Time Stop Time Status Last Admin (Zofran Inj) 4 mg Q6H PRN IV PUSH 05/04/17 17:00 (Duoneb Neb) 1 ampule Q6HR NEB INH 05/04/17 22:00 05/07/17 19:33 (Chlorhexidine 2% Cloth) 3 pack Taper DAILY@04 TOP 05/05/17 04:00 05/01/18 03:59 Potassium Chloride 100 ml @ 50 mls/hr Q2H PRN IV 05/04/17 17:00 Potassium Chloride 100 ml @ 50 mls/hr Q2H PRN IV 05/04/17 17:00 (K-Lyte Cl Eff) 50 meq UNSCH PRN PO 05/04/17 17:00 Potassium Chloride 100 ml @ 25 mls/hr UNSCH PRN IV 05/04/17 17:00 Potassium Chloride 100 ml @ 50 mls/hr Q2H PRN IV 05/04/17 17:00 Magnesium Sulfate 4 gm/Sodium Chloride 100 ml @ 50 mls/hr UNSCH PRN IV 05/04/17 17:00 (Mag-Ox) 800 mg UNSCH PRN PO 05/04/17 17:00 Magnesium Sulfate 2 gm/Sodium Chloride 100 ml @ 50 mls/hr UNSCH PRN IV 05/04/17 17:00 (K-Phos) 2,000 mg Q4H PRN PO 05/04/17 17:00 Sodium Phosphate 30 mmol/Sodium Chloride 250 ml @ 42 mls/hr UNSCH PRN IV 05/04/17 17:00 (K-Phos) 2,000 mg UNSCH PRN PO/TUBE 05/04/17 17:00 Potassium Phosphate 30 mmol/ Sodium Chloride 260 ml @ 42 mls/hr UNSCH PRN IV 05/04/17 17:00 05/05/17 09:01 Levetriacetam 100 ml @ 400 mls/hr Q12HR IV 05/04/17 21:00 05/07/17 20:39 (Brethine Inj) 1 mg UNSCH PRN SQ 05/04/17 19:45 Amiodarone HCl 450 mg/Dextrose 250 ml @ 33.33 mls/ hr TITRATE PRN IV 05/04/17 19:45 05/06/17 07:42 (NS Flush) 2 ml UNSCH PRN IV FLUSH 05/04/17 19:45 (NS Flush) 2 ml BID IV FLUSH 05/04/17 21:00 05/07/17 20:59 (Tylenol) 650 mg Q6H PRN PO 05/04/17 19:45 05/05/17 06:58 (Pepcid Inj) 20 mg Q12HR IV PUSH 05/04/17 21:00 05/07/17 20:39 (Duoneb Neb) 1 ampule Q2HR NEB PRN INH 05/04/17 19:45 Miscellaneous Information 1 Q361D XX 05/04/17 19:45 (Chlorhexidine 2% Cloth) 3 pack Taper DAILY@04 TOP 05/05/17 04:00 05/01/18 03:59 (Chlorhexidine 2% Cloth) 3 pack UNSCH PRN TOP 05/04/17 19:45 (Yaneth-Colace) 1 tab BID PO 05/04/17 21:00 05/06/17 20:05 (Milk Of Magnesia Liq) 30 ml Q12H PRN PO 05/04/17 19:45 (Senokot) 17.2 mg Q12H PRN PO 05/04/17 19:45 (Dulcolax Supp) 10 mg DAILY PRN RECTAL 05/04/17 19:45 (Lactulose Liq) 30 ml DAILY PRN PO 05/04/17 19:45 (Prinivil) 2.5 mg DAILY PO 05/06/17 09:00 05/07/17 07:57 (Coreg) 6.25 mg Q12HR PO 05/06/17 09:00 05/07/17 07:57 (Pill Splitter) 1 ea UNSCH PRN OTHER 05/06/17 10:00 (Aldactone) 25 mg BID@,18 PO 05/07/17 09:00 05/07/17 07:57 (Lopressor Inj) 2.5 mg Q6H IV PUSH 05/07/17 17:15 05/08/17 05:15 Vital Signs / I&O Vital Signs Date Time Temp Pulse Resp B/P (MAP) Pulse Ox O2 Delivery O2 Flow Rate FiO2 05/08/17 04:00 98.2 72 14 106/62 (77) 99 05/08/17 04:00 74 05/08/17 03:33 97 35 05/08/17 02:00 62 05/08/17 00:00 98.6 71 13 99/54 (69) 99 05/08/17 00:00 71 05/07/17 22:00 69 05/07/17 20:57 99 HOME CPAP 2.00 05/07/17 20:00 99.3 83 16 113/65 (81) 95 05/07/17 20:00 66 05/07/17 20:00 97 Nasal Cannula 3.00 Bi-Pap 05/07/17 19:38 94 Nasal Cannula 2.00 05/07/17 19:00 99 Nasal Cannula 3.00 05/07/17 18:00 82 05/07/17 16:00 80 05/07/17 16:00 98.1 80 23 108/66 (80) 94 05/07/17 15:21 95 Nasal Cannula 2.00 05/07/17 14:00 78 05/07/17 12:08 99 Nasal Cannula 1.00 05/07/17 12:00 98.2 80 13 111/61 (78) 98 05/07/17 12:00 80 05/07/17 10:00 71 05/07/17 08:10 98 Nasal Cannula 3.00 05/07/17 08:10 96 Nasal Cannula 3 05/07/17 08:00 97.0 80 15 130/67 (88) 98 05/07/17 08:00 40 05/07/17 08:00 73 05/07/17 07:20 100 30 05/07/17 07:19 30 05/07/17 07:00 100 Mechanical Ventilator 40 I/O 05/07/17 05/07/17 05/07/17 05/08/17 05/08/17 05/08/17 07:00 15:00 23:00 07:00 15:00 23:00 Intake Total 733 ml 100 ml 60 ml 100 ml Output Total 550 ml 4100 ml 850 ml Balance 183 ml 100 ml -4040 ml -750 ml Intake IV Total 100 ml 100 ml Tube Feeding 533 ml Tube Irrigant 60 ml Other 200 ml Output Urine Total 550 ml 4100 ml 850 ml # Bowel Movements 2 0 0 Physical Exam GENERAL: Awake, in NAD SKIN: Warm and dry. HEAD: Normocephalic. EYES: No scleral icterus. No injection or drainage. NECK: Supple, trachea midline. No JVD or lymphadenopathy. CARDIOVASCULAR: Irregular, no murmur, gallops, or rubs. RESPIRATORY: Breath sounds equal bilaterally. No accessory muscle use. GASTROINTESTINAL: Abdomen soft, non-tender, nondistended. MUSCULOSKELETAL: No cyanosis, or edema. Laboratory Laboratory Tests Test 05/07/17 07:40 Blood Urea Nitrogen 12 MG/DL Creatinine 0.39 MG/DL Random Glucose 109 MG/DL Total Protein 5.9 GM/DL Albumin 2.7 GM/DL Calcium Level 8.1 MG/DL Phosphorus Level 1.7 MG/DL Magnesium Level 2.1 MG/DL Alkaline Phosphatase 86 U/L Aspartate Amino Transf (AST/SGOT) 41 U/L Alanine Aminotransferase (ALT/SGPT) 49 U/L Total Bilirubin 0.3 MG/DL Sodium Level 142 MEQ/L Potassium Level 3.8 MEQ/L Chloride Level 110 MEQ/L Carbon Dioxide Level 27.9 MEQ/L Anion Gap 4 MEQ/L Estimat Glomerular Filtration Rate 164 ML/MIN Assessment and Plan Problem List: (1) Cardiac arrest ICD Codes: I46.9 - Cardiac arrest, cause unspecified Status: Acute (2) Ventricular fibrillation ICD Codes: I49.01 - Ventricular fibrillation Status: Acute (3) Subarachnoid hemorrhage following injury ICD Codes: S06.6X9A - Traumatic subarachnoid hemorrhage with loss of consciousness of unspecified duration, initial encounter Status: Acute (4) Atrial fibrillation ICD Codes: I48.91 - Unspecified atrial fibrillation (5) Respiratory failure ICD Codes: J96.90 - Respiratory failure, unspecified, unspecified whether with hypoxia or hypercapnia (6) Cardiomyopathy ICD Codes: I42.9 - Cardiomyopathy, unspecified Assessment and Plan Good progress. Echo with severe LV dysfunction. Continue JOSE L-I and beta isaías , titrate as tolerated. Stay off amio. MS improving. Full anticoagulation in 1 week as recommended by neurosurgery. Cath, possibly EPS and ICD placement on Thu. D/w pt and family. Problem Qualifiers (1) Subarachnoid hemorrhage following injury: Qualified Codes: S06.6X3A - Traumatic subarachnoid hemorrhage with loss of consciousness of 1 hour to 5 hours 59 minutes, initial encounter aDra Wilkinson MD May 08, 2017 06:52
[2017-05-08] MEDS: levETIRAcetam INJ 100 ML IV SCH ×2 (08:22→21:00)
[2017-05-08] MEDS: SODIUM CHLORIDE 0.9% FLUSH 10 ML FLUSH IV FLUSH SCH ×2 (08:22→21:00)
[2017-05-08] MEDS: FAMOTIDINE 20 MG/2 ML VIAL IV PUSH SCH ×2 (08:22→21:00)
--- NOTE | 2017-05-08 08:25 | HHI.CCPN ---
Subjective Remarks/Hospital Course 67-year-old female with past medical history of atrial fibrillation on Xarelto presents for a witnessed at 3:45 syncopal episode. She became unresponsive and fell backward and struck the back of her head on the ground. The CPR was started by bystanders and paramedics were called and found her in ventricular fibrillation. They worked her as an ACLS code for the next 40 minutes until they got return of circulation. She was defibrillated 6 times and received 4 doses of 1 mg epinephrine. She received 100 mg of bicarbonate and a total of 450 mg of amiodarone given over 2 separate dose SUBJ 05/05/17: Patient remains intubated off sedation. Opens eyes to repeated verbal command. Do not follow commands but spontaneously moving upper extremities. Remains on amiodarone infusion, in atrial fibrillation but rate controlled. Off all pressors at this time. (Dr. Berrios had evaluated the patient and decided against cooling due to improvement in neuro exam). CT of the head ordered to follow-up on traumatic subarachnoid hemorrhage 05/06: There is slow improvement in neuro exam. Opens eyes tracks very weakly follows commands on bilateral upper and lower extremities. 2-D echo shows LV systolic function is severely reduced with EF 25-30%. There is global left ventricular dysfunction. Mild MR which is central possible coaptation problem, mild to moderate tricuspid valve regurgitation. Dr. Wilkinson planning on cardiac cath on Thursday. Start CPAP trials 05/07: No acute events overnight. Urine output 2100 with Lasix. Appears more awake, following commands. Able to move all extremities. I have also started on Aldactone today 05/08: Neuro exam improving steadily, No arrhythmias. UO 5L in 24 hours with Lasix. Nothing by mouth per speech recommendation. Reevaluate today. Labs pending today Objective Vital Signs Date Time Temp Pulse Resp B/P (MAP) Pulse Ox O2 Delivery O2 Flow Rate FiO2 05/08/17 07:00 99 Nasal Cannula 2.00 05/08/17 06:00 80 05/08/17 04:00 98.2 14 106/62 (77) 05/08/17 03:33 35 Intake and Output 05/08/17 05/08/17 05/09/17 08:00 16:00 00:00 Intake Total 100 ml Output Total 850 ml Balance -750 ml Result Diagram: 05/06/17 0535 05/07/17 0740 Other Results Microbiology Date/Time Source Procedure Growth Status 05/05/17 10:45 Sputum Endotracheal Gram Stain - Final Complete 05/05/17 10:45 Sputum Endotracheal Sputum Culture - Final HEAVY GROWTH NORMAL RESPIRATORY CAESAR Complete Imaging Last [address] 05/04/17 1629 Signed Impressions: Service Date/Time: Thursday, May 04, 2017 16:42 - CONCLUSION: 1. There are minimal acute subarachnoid blood products layering along the sulci of the right frontal lobe and left frontoparietal region. 2. There is a nondisplaced fracture of the left temporal bone and parietal bone. 3. Blood products are present within the sphenoid sinus. Octaviano Coronado MD Chest X-Ray 05/04/17 1629 Signed Impressions: Service Date/Time: Thursday, May 04, 2017 17:04 - CONCLUSION: 1. Satisfactory position of endotracheal tube as above. 2. Interstitial pulmonary edema Edin Fitch MD Cervical Spine CT 05/04/17 0000 Signed Impressions: Service Date/Time: Thursday, May 04, 2017 16:42 - CONCLUSION: 1. No evidence of acute cervical spine fracture. 2. Horizontal fracture left temporal bone. Edin Fitch MD Objective Remarks GENERAL: Well-nourished, well-developed female improving neuro exam SKIN: Warm and dry. HEAD: Normocephalic. EYES: No scleral icterus. No injection or drainage. NECK: Supple, trachea midline. No JVD or lymphadenopathy. CARDIOVASCULAR: Atrial fibrillation rate controlled no murmur RESPIRATORY: Breath sounds equal bilaterally. No accessory muscle use. GASTROINTESTINAL: Abdomen soft, non-tender, nondistended. MUSCULOSKELETAL: No cyanosis, or edema. BACK: Nontender without obvious deformity. NEURO EXAM: Alert awake, communicates. Spontaneously moving upper extremities. Follows commands x4 A/P Assessment and Plan Neuro: Traumatic subarachnoid hemorrhage, nondisplaced left temporal and parietal bone fracture Possible anoxic brain injury - Clinically neuro exam showing improvement, patient following commands communicative - F/u CT head05/05 resolution of SAH, neurosurgery Dr. Carmona - Because of improvement in clinical exam initial plan for induced hypothermia was abandoned - Anticoagulation reversed with Kcentra due to subarachnoid hemorrhage Resp: Acute Respiratory failure - Intubated for an airway protection - Extubated 05/07/17, tolerating well - DuoNeb's when necessary - Possible aspiration pneumonitis, f/u sputum culture negative CVS: V. fib arrest Chronic atrial fibrillation Nonischemic cardiomyopathy EF 25-30%. Mild to moderate MR TR Lactic acidosis Troponin elevation - Status post successful cardiopulmonary resuscitation - Started Coreg 6.25 mg twice a day and lisinopril 2.5 mg daily 05/06. Start Aldactone 25 mg po BID 05/07 - PO meds on hold, as she failed swallow. Reevaluate today. Continue IV metoprolol until cleared for by mouth - Discontinued amiodarone drip 05/06 - Cardiac cath on Thursday cleared for antiplatelet therapy by Dr. Carmona. Anticoagulation Okd after 1 week - AICD EP study on Thursday - Echocardiogram EF 25-30%. There is global left ventricular dysfunction. Mild MR which is central (possible coaptation problem). Mild to moderate tricuspid valve regurgitation. - Start ASA today if ok with N/S GI: - NPO per speech, re evaluate today - IV famotidine : - Monitor the renal function closely. Ramirez catheter - IV Lasix 40 mg 05/06 and 05/07 - Aldactone started, but held now due to NPO ENDO: - Electrolyte replacement per protocol ID: Probable aspiration pneumonitis - F/u sputum culture, watch off antibiotics DVT GI prophylaxis - Teds SCDs - Start Lovenox today if ok with neurosurgery - Pepcid Critical Care: Level 3 Kaylie Brumfield MD May 08, 2017 08:25
[2017-05-08] MEDS: CARVEDILOL 6.25 MG TAB PO SCH ×3 (09:00→21:00)
[2017-05-08] MEDS: DOCUSATE SODIUM 50 MG/SENNA 8.6 MG TAB PO SCH ×2 (09:00→21:00)
[2017-05-08] MEDS: LISINOPRIL 5 MG TAB PO SCH (09:00)
[2017-05-08] MEDS: SPIRONOLACTONE 25 MG TAB PO SCH ×2 (09:00→17:28)
[2017-05-08] MEDS ORDERED: ASPIRIN 81 MG CHEW TAB CHEW SCH (10:00)
[2017-05-08 12:55] LABS: ANION GAP 6 MEQ/L (5-15); AST (GOT) 34 U/L (15-37); BICARBONATE 27.6 MEQ/L (21.0-32.0); BLOOD UREA NITROGEN 13 MG/DL (7-18); CHLORIDE 106 MEQ/L (98-107); GLOMERULAR FILTRATION RATE 110 ML/MIN (>89); POTASSIUM 3.9 MEQ/L (3.5-5.1); SODIUM (NA) 140 MEQ/L (136-145)
[2017-05-08 13:22] LABS: ALKALINE PHOSPHATASE 75 U/L (45-117); ALT (GPT) 42 U/L (10-53); TOTAL BILIRUBIN ADULT 0.6 MG/DL (0.2-1.0)
[2017-05-08] MEDS ORDERED: ENOXAPARIN SODIUM 40 MG/0.4 ML SYRINGE SQ SCH (16:00)
[2017-05-08 18:55] LABS: POTASSIUM 3.8 MEQ/L (3.5-5.1)
[2017-05-09] VITALS (14 sets, daily range): BP systolic 128–150; BP diastolic 48–91; PULSE 71–94; RESP 16–24; TEMP 96.5–98.9; O2SAT 92–100
[2017-05-09] MEDS: CHLORHEXIDINE GLUCONATE 2 % 1 PACK (2 CLOTHS) TOP SCH ×2 (04:00)
[2017-05-09 04:54] LABS: AUTOMATED NEUTROPHIL # 3.9 TH/MM3 (1.8-7.7); BASOPHIL % 0.6 % (0.0-2.0); EOSINOPHIL # 0.1 TH/MM3 (0-0.4); EOSINOPHIL % 1.5 % (0.0-4.0); HEMATOCRIT 33.3 % (35.0-46.0); HEMO FLAGS DIFF FINAL; LYMPH % 17.4 % (9.0-44.0); MEAN CELL VOLUME 96.9 FL (80.0-100.0); MEAN CORPUSCULAR HEMOGLOBIN 33.2 PG (27.0-34.0); MEAN CORPUSCULAR HGB CONC 34.3 % (32.0-36.0); MONO % 10.1 % (0.0-8.0); NEUT % 70.4 % (16.0-70.0); PLATELET COUNT 121 TH/MM3 (150-450); RED BLOOD COUNT 3.44 MIL/MM3 (4.00-5.30); RED CELL DISTRIBUTION WIDTH 13.5 % (11.6-17.2); WHITE BLOOD COUNT 5.5 TH/MM3 (4.0-11.0)
[2017-05-09 05:17] LABS: ANION GAP 9 MEQ/L (5-15); AST (GOT) 29 U/L (15-37); BICARBONATE 27.9 MEQ/L (21.0-32.0); BLOOD UREA NITROGEN 12 MG/DL (7-18); CHLORIDE 104 MEQ/L (98-107); GLOMERULAR FILTRATION RATE 108 ML/MIN (>89); POTASSIUM 3.7 MEQ/L (3.5-5.1); SODIUM (NA) 141 MEQ/L (136-145)
[2017-05-09 05:22] LABS: ALKALINE PHOSPHATASE 73 U/L (45-117); ALT (GPT) 38 U/L (10-53); TOTAL BILIRUBIN ADULT 0.6 MG/DL (0.2-1.0)
[2017-05-09] MEDS: SODIUM CHLORIDE 0.9% FLUSH 10 ML FLUSH IV FLUSH SCH ×2 (09:00→20:45)
[2017-05-09] MEDS: DOCUSATE SODIUM 50 MG/SENNA 8.6 MG TAB PO SCH ×2 (09:23→20:34)
[2017-05-09] MEDS: SPIRONOLACTONE 25 MG TAB PO SCH ×2 (09:23→17:58)
[2017-05-09] MEDS: levETIRAcetam INJ 100 ML IV SCH ×2 (09:23→20:35)
[2017-05-09] MEDS: CARVEDILOL 6.25 MG TAB PO SCH ×2 (09:23→20:33)
[2017-05-09] MEDS: LISINOPRIL 5 MG TAB PO SCH ×2 (09:23→20:34)
[2017-05-09] MEDS: FAMOTIDINE 20 MG/2 ML VIAL IV PUSH SCH ×2 (09:23→20:35)
--- NOTE | 2017-05-09 11:29 | HHI.CCPN ---
Subjective Remarks/Hospital Course 67-year-old female with past medical history of atrial fibrillation on Xarelto presents for a witnessed at 3:45 syncopal episode. She became unresponsive and fell backward and struck the back of her head on the ground. The CPR was started by bystanders and paramedics were called and found her in ventricular fibrillation. They worked her as an ACLS code for the next 40 minutes until they got return of circulation. She was defibrillated 6 times and received 4 doses of 1 mg epinephrine. She received 100 mg of bicarbonate and a total of 450 mg of amiodarone given over 2 separate dose SUBJ 05/05/17: Patient remains intubated off sedation. Opens eyes to repeated verbal command. Do not follow commands but spontaneously moving upper extremities. Remains on amiodarone infusion, in atrial fibrillation but rate controlled. Off all pressors at this time. (Dr. Berrios had evaluated the patient and decided against cooling due to improvement in neuro exam). CT of the head ordered to follow-up on traumatic subarachnoid hemorrhage 05/06: There is slow improvement in neuro exam. Opens eyes tracks very weakly follows commands on bilateral upper and lower extremities. 2-D echo shows LV systolic function is severely reduced with EF 25-30%. There is global left ventricular dysfunction. Mild MR which is central possible coaptation problem, mild to moderate tricuspid valve regurgitation. Dr. Wilkinson planning on cardiac cath on Thursday. Start CPAP trials 05/07: No acute events overnight. Urine output 2100 with Lasix. Appears more awake, following commands. Able to move all extremities. I have also started on Aldactone today 05/08: Neuro exam improving steadily, No arrhythmias. UO 5L in 24 hours with Lasix. Nothing by mouth per speech recommendation. Reevaluate today. Labs pending today 05/09: remains confused. oriented to self only. however, on room air. continues to improve. plan for [facility] on thursday. Objective Vital Signs Date Time Temp Pulse Resp B/P (MAP) Pulse Ox O2 Delivery O2 Flow Rate FiO2 05/09/17 10:00 74 05/09/17 08:43 96 21 05/09/17 07:00 Nasal Cannula 2.00 05/09/17 04:00 98.4 24 150/77 (101) Intake and Output 05/09/17 05/09/17 05/10/17 08:00 16:00 00:00 Intake Total 940 ml Output Total 1500 ml Balance -560 ml Result Diagram: 05/09/17 0422 05/09/17 0422 Imaging Last [address] 05/04/17 1629 Signed Impressions: Service Date/Time: Thursday, May 04, 2017 16:42 - CONCLUSION: 1. There are minimal acute subarachnoid blood products layering along the sulci of the right frontal lobe and left frontoparietal region. 2. There is a nondisplaced fracture of the left temporal bone and parietal bone. 3. Blood products are present within the sphenoid sinus. Octaviano Coronado MD Chest X-Ray 05/04/17 1629 Signed Impressions: Service Date/Time: Thursday, May 04, 2017 17:04 - CONCLUSION: 1. Satisfactory position of endotracheal tube as above. 2. Interstitial pulmonary edema Edin Fitch MD Cervical Spine CT 05/04/17 0000 Signed Impressions: Service Date/Time: Thursday, May 04, 2017 16:42 - CONCLUSION: 1. No evidence of acute cervical spine fracture. 2. Horizontal fracture left temporal bone. Edin Fitch MD Objective Remarks GENERAL: Well-nourished, well-developed female sitting in bed in [facility]. SKIN: Warm and dry. HEAD: Normocephalic. EYES: No scleral icterus. No injection or drainage. NECK: trachea midline. No JVD CARDIOVASCULAR: Atrial fibrillation rate controlled no murmur RESPIRATORY: unlabored. equal chest rise. on room air. No accessory muscle use. GASTROINTESTINAL: Abdomen soft, non-tender, nondistended. MUSCULOSKELETAL: No cyanosis, or edema. BACK: Nontender without obvious deformity. NEURO EXAM: Alert awake, communicates. Spontaneously moving upper extremities. Follows commands x4. oriented x 1 (self only) A/P Assessment and Plan Assessment: 67yF with [id number] cardiac arrest and traumatic SAH. stable for transfer to step-down unit. plan for [facility] thursday. on room air. Neuro: Traumatic subarachnoid hemorrhage, nondisplaced left temporal and parietal bone fracture Hypoxic ischemic encephalopathy - Clinically neuro exam showing improvement, patient following commands communicative - F/u CT head05/05 resolution of SAH, neurosurgery Dr. Carmona - Because of improvement in clinical exam initial plan for induced hypothermia was abandoned - Anticoagulation reversed with Kcentra due to subarachnoid hemorrhage Resp: Acute hypoxic and hypercarbic Respiratory failure - resolved. - Intubated for an airway protection - Extubated 05/07/17, tolerating well - DuoNeb's when necessary - Possible aspiration pneumonitis, f/u sputum culture negative - room air. CVS: V. fib arrest Chronic atrial fibrillation Nonischemic cardiomyopathy EF 25-30%. Mild to moderate MR TR Lactic acidosis- resolved. Troponin elevation - Status post successful cardiopulmonary resuscitation - Coreg 6.25 mg twice a day and lisinopril 2.5 mg daily 05/06. Aldactone 25 mg po BID 05/07 - PO meds on hold, as she failed swallow. Reevaluate today. Continue IV metoprolol until cleared for by mouth - Discontinued amiodarone drip 05/06 - Cardiac cath on Thursday cleared for antiplatelet therapy by Dr. Carmona. Anticoagulation Okd after 1 week - AICD EP study on Thursday - Echocardiogram EF 25-30%. There is global left ventricular dysfunction. Mild MR which is central (possible coaptation problem). Mild to moderate tricuspid valve regurgitation. - Start ASA today if ok with N/S GI: - regular basic diet per speech. - IV famotidine : - Monitor the renal function closely. d/c tam today. - IV Lasix 40 mg 05/06 and 05/07 - Aldactone started ENDO: - Electrolyte replacement per protocol ID: Probable aspiration pneumonitis- resolving. - F/u sputum culture, watch off antibiotics. clinically improving. DVT GI prophylaxis - Teds SCDs - Start Lovenox today if ok with neurosurgery - Pepcid dispo: transfer to step-down unit. Jagjit Pozo MD May 09, 2017 11:29
--- NOTE | 2017-05-09 14:03 | EKG ---
Date Performed: 05/08/2017 Time Performed: 18:27:40 PTAGE: 67 years EKG: Atrial fibrillation with controlled ventricular response and one ventricular ectopic beat P oor initial anterior forces, which may be a normal variant Low limb lead votlage Nonspecific T-wave c hange Abnormal ECG PREVIOUS TRACING : 05/04/2017 20.07 Since previous tracing, ventricular ectopy is less frequent . Otherwise, no significant change. DOCTOR: Michael Mosqueda Interpretating Date/Time 05/09/2017 14:02:39
[2017-05-10] VITALS (9 sets, daily range): BP systolic 116–136; BP diastolic 70–81; PULSE 66–94; RESP 16–18; TEMP 97.8–98.7; O2SAT 92–96
[2017-05-10] MEDS: CHLORHEXIDINE GLUCONATE 2 % 1 PACK (2 CLOTHS) TOP SCH ×2 (04:00)
[2017-05-10 07:12] LABS: HEMATOCRIT 34.7 % (35.0-46.0); MEAN CELL VOLUME 96.2 FL (80.0-100.0); MEAN CORPUSCULAR HEMOGLOBIN 33.3 PG (27.0-34.0); MEAN CORPUSCULAR HGB CONC 34.6 % (32.0-36.0); PLATELET COUNT 145 TH/MM3 (150-450); RED BLOOD COUNT 3.61 MIL/MM3 (4.00-5.30); RED CELL DISTRIBUTION WIDTH 13.1 % (11.6-17.2); REVIEW FLAG FINAL; WHITE BLOOD COUNT 6.3 TH/MM3 (4.0-11.0)
[2017-05-10 07:35] LABS: BICARBONATE 27.2 MEQ/L (21.0-32.0); POTASSIUM 3.7 MEQ/L (3.5-5.1)
[2017-05-10 07:45] LABS: FREE T4 1.04 NG/DL (0.76-1.46)
--- NOTE | 2017-05-10 08:00 | HHI.PR ---
Subjective Remarks In the chair she appears in no acute distress at this time. No chest pain overnight no shortness of breath. No palpitations or lightheadedness. Feels tired. There is some lower extremity edema. No diaphoresis, nausea. No diarrhea or constipation or abdominal pain. Objective Vitals Vital Signs Date Time Temp Pulse Resp B/P (MAP) Pulse Ox O2 Delivery O2 Flow Rate FiO2 05/10/17 07:00 92 Room Air 05/10/17 07:00 98.7 84 16 124/72 (89) 92 05/10/17 07:00 78 05/10/17 04:15 70 05/10/17 03:30 97 05/10/17 03:30 98.5 66 18 123/72 (89) 96 05/09/17 23:50 97 05/09/17 23:30 96.5 73 18 130/87 (101) 98 05/09/17 23:20 71 05/09/17 21:35 98 HOME CPAP 2.00 05/09/17 20:00 98 05/09/17 19:05 Room Air 05/09/17 19:00 85 05/09/17 19:00 98.9 91 18 139/83 (101) 98 05/09/17 15:00 88 05/09/17 15:00 98.5 94 18 135/48 (77) 92 05/09/17 13:00 98.6 82 18 136/91 (106) 94 05/09/17 13:00 79 05/09/17 12:00 98.6 80 20 133/63 (86) 96 05/09/17 12:00 80 05/09/17 10:00 74 05/09/17 08:43 96 21 05/09/17 08:00 72 05/09/17 08:00 98.1 76 20 133/81 (98) 96 I/O 05/09/17 05/09/17 05/09/17 05/10/17 05/10/17 05/10/17 07:00 15:00 23:00 07:00 15:00 23:00 Intake Total 940 ml 360 ml 820 ml 720 ml Output Total 1500 ml 900 ml 500 ml 1600 ml Balance -560 ml -540 ml 320 ml -880 ml Intake Oral 840 ml 360 ml 720 ml 720 ml IV Total 100 ml 100 ml Output Urine Total 1500 ml 900 ml 500 ml 1600 ml # Voids 2 # Bowel Movements 0 0 0 0 Result Diagram: 05/10/1751905/10/17519 Imaging Last Impressions Chest X-Ray 05/07/17 0000 Signed Impressions: Service Date/Time: May 07:00 - CONCLUSION: Unremarkable single view the chest with tubes and catheters in good position. The left hemidiaphragm is slightly more indistinct than previously could represent some early atelectasis. Hernan Cota MD Head CT 05/05/17 0000 Signed Impressions: Service Date/Time: Friday, May 05, 2017 11:33 - CONCLUSION: Negative for acute process. Chandra Mercado MD FACR Cervical Spine CT 05/04/17 0000 Signed Impressions: Service Date/Time: Thursday, May 04, 2017 16:42 - CONCLUSION: 1. No evidence of acute cervical spine fracture. 2. Horizontal fracture left temporal bone. Edin Fitch MD Objective Remarks GENERAL: Well-nourished, well-developed female sitting in bed in [facility]. SKIN: Warm and dry. HEAD: Normocephalic. EYES: No scleral icterus. No injection or drainage. NECK: trachea midline. No JVD CARDIOVASCULAR: Atrial fibrillation rate controlled no murmur RESPIRATORY: unlabored. equal chest rise. on room air. No accessory muscle use. GASTROINTESTINAL: Abdomen soft, non-tender, nondistended. MUSCULOSKELETAL: No cyanosis, or edema. BACK: Nontender without obvious deformity. NEURO EXAM: Alert awake, communicates. Spontaneously moving upper extremities. Follows commands x4. oriented x 1 (self only) A/P Assessment and Plan 67 yo F with [id number] cardiac arrest and traumatic SAH. stable for transfer to step-down unit. Plan for [facility] Thursday. Satting well on room air. Neuro: Traumatic subarachnoid hemorrhage, nondisplaced left temporal and parietal bone fracture Hypoxic ischemic encephalopathy - Clinically neuro exam showing improvement, patient following commands communicative - F/u CT head05/05 resolution of SAH, neurosurgery Dr. Carmona - Because of improvement in clinical exam initial plan for induced hypothermia was abandoned - Anticoagulation reversed with Kcentra due to subarachnoid hemorrhage Resp: Acute hypoxic and hypercarbic Respiratory failure - resolved. - Intubated for an airway protection - Extubated 05/07/17, tolerating well - DuoNeb's when necessary - Possible aspiration pneumonitis, f/u sputum culture negative - room air. CVS: V. fib arrest Chronic atrial fibrillation Nonischemic cardiomyopathy EF 25-30%. Mild to moderate MR TR Lactic acidosis- resolved. Troponin elevation - Status post successful cardiopulmonary resuscitation - Coreg 6.25 mg twice a day and lisinopril 2.5 mg daily 05/06. Aldactone 25 mg po BID 05/07 - PO meds on hold, as she failed swallow. Reevaluate today. Continue IV metoprolol until cleared for by mouth - Discontinued amiodarone drip 05/06 - Cardiac cath on Thursday cleared for antiplatelet therapy by Dr. Carmona. Anticoagulation Okd after 1 week - AICD EP study on Thursday - Echocardiogram EF 25-30%. There is global left ventricular dysfunction. Mild MR which is central (possible coaptation problem). Mild to moderate tricuspid valve regurgitation. - Start ASA today if ok with N/S GI: - regular basic diet per speech. - IV famotidine Constipation: bowel regimen : - Monitor the renal function closely. d/c tam today. - IV Lasix 40 mg 05/06 and 05/07 - Aldactone started ENDO: - Electrolyte replacement per protocol ID: Probable aspiration pneumonitis- resolving. - F/u sputum culture, watch off antibiotics. clinically improving. DVT GI prophylaxis - Teds SCDs - Start Lovenox today if ok with neurosurgery DC plan: Pending improvement. Plan for [facility] on Thursday05/11/17 Renee Malik MD May 10, 2017 08:00
[2017-05-10] MEDS: SPIRONOLACTONE 25 MG TAB PO SCH ×2 (09:00→17:26)
[2017-05-10] MEDS: SODIUM CHLORIDE 0.9% FLUSH 10 ML FLUSH IV FLUSH SCH ×2 (09:56→20:45)
[2017-05-10] MEDS: levETIRAcetam INJ 100 ML IV SCH ×2 (09:57→20:44)
[2017-05-10] MEDS: FAMOTIDINE 20 MG/2 ML VIAL IV PUSH SCH ×2 (09:57→20:44)
[2017-05-10] MEDS: LISINOPRIL 5 MG TAB PO SCH ×2 (09:58→20:45)
[2017-05-10] MEDS: CARVEDILOL 6.25 MG TAB PO SCH ×2 (09:58→20:45)
[2017-05-10] MEDS: DOCUSATE SODIUM 50 MG/SENNA 8.6 MG TAB PO SCH ×2 (09:58→20:45)
[2017-05-11] VITALS (7 sets, daily range): BP systolic 101–122; BP diastolic 54–77; PULSE 62–96; RESP 14–22; TEMP 97.8–98.6; O2SAT 92–97
[2017-05-11] MEDS: CHLORHEXIDINE GLUCONATE 2 % 1 PACK (2 CLOTHS) TOP SCH ×2 (04:00)
[2017-05-11 06:27] LABS: HEMATOCRIT 42.1 % (35.0-46.0); MEAN CELL VOLUME 96.8 FL (80.0-100.0); MEAN CORPUSCULAR HEMOGLOBIN 32.4 PG (27.0-34.0); MEAN CORPUSCULAR HGB CONC 33.5 % (32.0-36.0); PLATELET COUNT 191 TH/MM3 (150-450); RED BLOOD COUNT 4.35 MIL/MM3 (4.00-5.30); RED CELL DISTRIBUTION WIDTH 13.3 % (11.6-17.2); REVIEW FLAG FINAL; WHITE BLOOD COUNT 9.8 TH/MM3 (4.0-11.0)
[2017-05-11 06:44] LABS: BICARBONATE 30.7 MEQ/L (21.0-32.0); POTASSIUM 4.2 MEQ/L (3.5-5.1)
[2017-05-11] MEDS: DOCUSATE SODIUM 50 MG/SENNA 8.6 MG TAB PO SCH ×2 (09:00→21:00)
[2017-05-11] MEDS: SODIUM CHLORIDE 0.9% FLUSH 10 ML FLUSH IV FLUSH SCH ×2 (09:00→21:00)
[2017-05-11] MEDS: SPIRONOLACTONE 25 MG TAB PO SCH ×2 (09:26→21:24)
[2017-05-11] MEDS: CARVEDILOL 6.25 MG TAB PO SCH ×2 (09:26→21:24)
[2017-05-11] MEDS: LISINOPRIL 5 MG TAB PO SCH ×2 (09:26→21:24)
[2017-05-11] MEDS: FAMOTIDINE 20 MG/2 ML VIAL IV PUSH SCH ×2 (09:27→21:25)
[2017-05-11] MEDS: levETIRAcetam INJ 100 ML IV SCH ×2 (09:27→21:24)
--- NOTE | 2017-05-11 12:13 | HHI.PR ---
Subjective Remarks Patient is in the bed, appears in nad. Pleasantly confused oriented to self only. Denies having any chest pain or sob at this time. No fever or chills. No new motor deficit. no change in vision. Feels tired. Says she doesn't remember events. No n/v/d/c. Family at bedside, very supportive. Objective Vitals Vital Signs Date Time Temp Pulse Resp B/P (MAP) Pulse Ox O2 Delivery O2 Flow Rate FiO2 05/11/17 11:00 98.0 71 16 104/58 (73) 92 05/11/17 11:00 92 Room Air 05/11/17 11:00 91 05/11/17 07:00 79 05/11/17 07:00 98.3 77 16 111/69 (83) 92 05/11/17 07:00 92 3.00 05/11/17 03:00 98.6 62 22 101/54 (70) 94 05/11/17 03:00 94 05/11/17 03:00 62 05/10/17 23:00 84 05/10/17 23:00 98.2 85 18 128/81 (97) 95 05/10/17 23:00 94 05/10/17 20:40 95 HOME CPAP 2.00 05/10/17 19:00 85 05/10/17 19:00 95 05/10/17 19:00 98.3 85 18 127/77 (94) 95 05/10/17 15:45 96 21 05/10/17 15:00 97.8 88 16 116/79 (91) 93 05/10/17 15:00 84 05/10/17 15:00 92 Room Air I/O 05/10/17 05/10/17 05/10/17 05/11/17 05/11/17 05/11/17 07:00 15:00 23:00 07:00 15:00 23:00 Intake Total 720 ml 820 ml 210 ml Output Total 1600 ml 1600 ml 800 ml Balance -880 ml -780 ml -590 ml Intake Oral 720 ml 720 ml 210 ml IV Total 100 ml Output Urine Total 1600 ml 1600 ml 800 ml # Voids 1 # Bowel Movements 0 4 0 Result Diagram: 05/11/17 0445 05/11/17 0445 Imaging Last Impressions Chest X-Ray 05/07/17 0000 Signed Impressions: Service Date/Time: May 07:00 - CONCLUSION: Unremarkable single view the chest with tubes and catheters in good position. The left hemidiaphragm is slightly more indistinct than previously could represent some early atelectasis. Hernan Cota MD Head CT 05/05/17 0000 Signed Impressions: Service Date/Time: Friday, May 05, 2017 11:33 - CONCLUSION: Negative for acute process. Chandra Mercado MD FACR Cervical Spine CT 05/04/17 0000 Signed Impressions: Service Date/Time: Thursday, May 04, 2017 16:42 - CONCLUSION: 1. No evidence of acute cervical spine fracture. 2. Horizontal fracture left temporal bone. Edin Fitch MD Objective Remarks GENERAL: Well-nourished, well-developed female sitting in bed in [facility]. SKIN: Warm and dry. HEAD: Normocephalic. EYES: No scleral icterus. No injection or drainage. NECK: trachea midline. No JVD CARDIOVASCULAR: Atrial fibrillation rate controlled no murmur RESPIRATORY: unlabored. equal chest rise. on room air. No accessory muscle use. GASTROINTESTINAL: Abdomen soft, non-tender, nondistended. MUSCULOSKELETAL: No cyanosis, or edema. BACK: Nontender without obvious deformity. NEURO EXAM: Alert awake, communicates. Alert and oriented x 1 (self only). CN 2- 12 grossly normal. No focal deficit. A/P Assessment and Plan 67 yo F with [id number] cardiac arrest and traumatic SAH. stable for transfer to step-down unit. Plan for [facility] Thursday. Satting well on room air. Neuro: Traumatic subarachnoid hemorrhage, nondisplaced left temporal and parietal bone fracture Hypoxic ischemic encephalopathy - Clinically neuro exam showing improvement, patient following commands communicative - F/u CT head05/05 resolution of SAH, neurosurgery Dr. Carmona - Because of improvement in clinical exam initial plan for induced hypothermia was abandoned - Anticoagulation reversed with Kcentra due to subarachnoid hemorrhage Resp: Acute hypoxic and hypercarbic Respiratory failure - resolved. - Intubated for an airway protection - Extubated 05/07/17, tolerating well - DuoNeb's when necessary - Possible aspiration pneumonitis, f/u sputum culture negative - Satting well on room air. CVS: V. fib arrest Chronic atrial fibrillation Nonischemic cardiomyopathy EF 25-30%. Mild to moderate MR TR Lactic acidosis- resolved. Troponin elevation - Status post successful cardiopulmonary resuscitation - Coreg 6.25 mg twice a day and lisinopril 2.5 mg daily 05/06. Aldactone 25 mg po BID 05/07 - PO meds on hold, as she failed swallow. Reevaluate today. Continue IV metoprolol until cleared for by mouth - Discontinued amiodarone drip 05/06 - Cardiac cath on Thursday cleared for antiplatelet therapy by Dr. Carmona. Anticoagulation Okd after 1 week - AICD EP study on Thursday - Echocardiogram EF 25-30%. There is global left ventricular dysfunction. Mild MR which is central (possible coaptation problem). Mild to moderate tricuspid valve regurgitation. - Start ASA today if ok with N/S GI: - regular basic diet per speech. - IV famotidine Constipation: bowel regimen : - Monitor the renal function closely. d/c tam today. - IV Lasix 40 mg 05/06 and 05/07 - Aldactone started ENDO: - Electrolyte replacement per protocol ID: Probable aspiration pneumonitis- resolving. - F/u sputum culture, watch off antibiotics. clinically improving. DVT GI prophylaxis - Teds SCDs - Start Lovenox today if ok with neurosurgery DC plan: Pending improvement. Plan for [facility] on Thursday05/11/17 by Renee Santos MD May 11, 2017 12:13
[2017-05-11] MEDS ORDERED: HEPARIN-NS/PF INJ 500 ML ONE (13:42)
[2017-05-11] MEDS ORDERED: ISOPROTERENOL HCL 1 MG/5 ML AMP ONE (13:52)
--- NOTE | 2017-05-11 15:16 | CATHPROC ---
[facility] HIS Report Study Information Study Number Admission Scheduled Start Study Start [id number] May 04 2017 4:44PM 05/11/2017 May 11 2017 12:47PM [place] Service Electrophysiology Study Admit Source Facility Department Emergency department [facility] - Pharmacy Service Associate Physician and Clinical Staff Initial Dara Mahmood Stucco Laborer Maynor Murray,RT(R) Stucco Laborer Fabi Sharma,RN Other Anesthesia, WELDING FOREMAN Recorder Fabi Sharma,MARK Recorder Bella Rivera,SWAPNARN Scrub Tory Mccrary,RT(R) TECH2 Equipment Time On Call Description Size Mfg Part Number Used/Scraped 12:58 CONMED LEADWIRE, DEFIBRILLATION PAD 2001M-[id number] Used [id number] 12:58 MED[employer] IND[employer] PACK, CCL CUSTOM * Used *[id number] 12:58 MEDLINE PACER MELLO, LIMB * 2530 *[id number] Used [id number] 12:58 CANALES MEDICAL BLANKET,WARM AIR CCL * Used *[id number] 12:58 [employer] MEDICAL CATHETER, JSN, QUAD FR 5 Used *[id number] 12:58 [employer] MEDICAL CATHETER, JSN, QUAD FR 5 Used *[id number] 12:58 [employer] MEDICAL CATHETER, JSN, QUAD FR 5 Used *[id number] 12:57 [employer] MEDICAL SHEATH, EPS, FR7 FAST CATH FR [id number] 12:58 [employer] MED[employer] SHEATH, EPS, FR7 FAST CATH FR [address] [id number] Used 12:58 [employer] MED[employer] SHEATH, EPS, FR7 FAST CATH FR 7 [id number] Used [facility] PAD, ELECTROSURGICAL 12:58 * [id number] *[id number] Used SURGICAL GROUNDING (BLUE) History: Current Medications Medication Dosage/Unit Route Frequency Last Date/Time Taken XARELTO ASA LOVENOX History: Allergies Allergy Reaction No Known Allergies Labs Hgb (g/dl) Hct (%) RBC (MIL/MM3) WBC (l/cumm) Platelets (thousands) 11.60-17.00 35.00-51.00 4.00-5.90 4.00-11.00 150.00-450.00 14.0 42 4.3 9.8 191 Glucose (mg/dl) BUN (mg/dl) Creatinine (mg/dl) BUN:Creatinine (1:x) 74.00-106.00 7.00-18.00 0.50-1.30 10.00-20.00 93 11 0.5 22 Na (meq/l) K (meq/l) 136.00-145.00 3.50-5.10 139 4.2 INR (PTT:PT) 0.90-1.10 1.1 Medication Medication Total Dose (Bolus/Oral) Medication Total Dosage/Unit 1% XYLOCAINE 20 mL Medications (Bolus/Oral) Medication Time Given Dosage/Unit Administered By Reason 1% XYLOCAINE 05/11/2017 2:42:00 PM 20 mL Dara Wilkinson As per physicians v erbal order 20 mL 1% XYLOCAINE given in lab by Dara Wilkinson in Right Groin via Subcutaneous. Ordered by Dara Cortes. Reason: As per physicians verbal order. Medication (Drip) Medication Time Given Dosage/Unit Concentration/Unit Diluent (ml) Solution ISUPREL 05/11/2017 2:56:00 PM 1 mcg/min 1 mg 250 NaCl .9 1 mcg/min ISUPREL given in lab by CHARISSA Starr in Left Forearm via Peripheral IV. Pump/Drip Flow = 15 ml/hr using NaCl .9 with a concentration of 1 mg in 250 ml. Ordered by Dara Wilkinson. Reason: As per physicians verbal order. IV Solutions 05/11/2017 1:46:28 PM 0 mL (IV) NaCl .9 IV Solutions given in lab by Bella Rivera BSRN in Left Forearm via Peripheral IV. Pump/Drip Flow = 50 ml/hr using NaCl .9. Ordered by Dara Wilkinson. Reason: As per physicians verbal order. IV Solutions 05/11/2017 1:46:55 PM 0 mL (IV) NaCl .9 IV Solutions given in lab by Bella Rivera BSRN in Right Forearm via Peripheral IV. Pump/Drip Jean w = 50 ml/hr using NaCl .9. Ordered by Dara Wilkinson. Reason: As per physicians verbal order. Initial Case Assessment Cardiovascular HR NIBP Chest Pain 75 129/70 0 Edema Present Skin color Skin None Normal Warm Dry Neurological State Oriented to time-place- Alert Moves all extremities person Respiration - General Respiration Rate SpO2 (%) (B/min) 20 99 Chronological Log Time Study Chronological Log 13:30:06 Patient arrived via Bed. 13:30:08 Patient Name, D.O.B, / Armband Verified By R.N. 13:30:11 Consent signed by the physician and the patient and verified by the Pharmacy Service Associate staff. 13:30:13 Pre-op and post- op instructions given; patient acknowledges understanding of instructions. 13:30:16 Verbal Stimulation=2 Physical Stimulation=2 Airway=2 Respiration=2 TOTAL=10. (0=absent, 1=l imited, 2=present) 13:30:42 Patient has been NPO for More than 6Hrs. 13:40:00 Anesthesia at bedside. Assumes care of patient. Nikolas WELDING FOREMAN 13:41:18 Skin Breakdown- scabs sternum, head, and right forearm 13:46:00 Disposable Defibrillator Pads Placed On Patient. 13:46:04 Kaity Prominences Protected 13:46:07 A # 20 IV was noted in the Forearm (left). Grade = 0 13:46:16 A # 20 IV was noted in the Forearm (right). Grade = 0 IV Solutions given in lab by Bella Rivera BSRN in Left Forearm via Peripheral IV. Pump/Dri p Flow = 50 ml/hr using 13:46:28 NaCl .9. Ordered by Dara Wilkinson. Reason: As per physicians verbal order. IV Solutions given in lab by Bella Rivera BSRN in Right Forearm via Peripheral IV. Pump/Dr ip Flow = 50 ml/hr 13:46:55 using NaCl .9. Ordered by Dara Wilkinson. Reason: As per physicians verbal order. 13:47:13 History and physical on the chart or being dictated. Assessment: Initial Case, HR=75 BPM, EEXZ=689/70 mmhg, Chest Pain=0, Edema=None, Color=Normal, Skin = Warm, Dry 13:47:15 Neurological: State=Alert, Ox3, NARVAEZ Respiration: Resp=20 B/min, SpO2=99 % 13:47:57 Table restraints applied according to hospital policy 13:47:59 Right groin prepped with 2% chlorhexidine, and draped after a 3 min. waiting time. 13:48:02 Left groin prepped with 2% chlorhexidine, and draped after a 3 min. waiting time. 20 mL 1% XYLOCAINE given in lab by Dara Wilkinson in Right Groin via Subcutaneous. Ordered by Dara Wilkinson. 14:42:00 Reason: As per physicians verbal order. 14:43:11 Vascular access was obtained in the Fem Vein (right). 14:43:12 Vascular access was obtained in the Fem Vein (right). 14:43:13 Vascular access was obtained in the Fem Vein (right). 14:44:16 A SHEATH, EPS, FR7 FAST CATH FR 7 was advanced into the Fem Vein (right) using the Percuta neous technique. 14:44:22 A SHEATH, EPS, FR7 FAST CATH FR 7 was advanced into the Fem Vein (right) using the Percuta neous technique. 14:44:23 A SHEATH, EPS, FR7 FAST CATH FR 7 was advanced into the Fem Vein (right) using the Percuta neous technique. A CATHETER, JSN, QUAD FR 5 was advanced vis Fem Vein (right) and placed in the HIS. Placement was visually 14:44:27 confirmed under fluoroscopy. A CATHETER, JSN, QUAD FR 5 was advanced vis Fem Vein (right) and placed in the CS. Placement w as visually 14:44:37 confirmed under fluoroscopy. A CATHETER, JSN, QUAD FR 5 was advanced vis Fem Vein (right) and placed in the RVA. Placement was visually 14:44:48 confirmed under fluoroscopy. 14:46:37 Reference ECG taken 14:49:33 EP Study in progress. 1 mcg/min ISUPREL given in lab by Anesthesia, WELDING FOREMAN in Left Forearm via Peripheral IV. Pump/Dri p Flow = 15 ml/hr 14:56:00 using NaCl .9 with a concentration of 1 mg in 250 ml. Ordered by Dara Wilkinson. Reason: As per physicians verbal order. 15:02:34 Isuprel gtt off. 15:02:45 EP Study completed. 15:03:12 EP Procedure was performed. 15:03:32 Quads removed. 15:03:52 Case End 15:04:03 No case complications noted. 15:04:58 NOTE: This patient is undergoing an additional procedure while still in the Cardiac Cath L ab. End Study - Contrast Media Used In Study Contrast Total Opened (mL) Total Used (mL) Total Wasted (mL) Unspecified 0 0 0 End Study - Maximum Contrast Load Max Contrast Load (mL) 775.0 End Study - Patient Disposition Complications Transferred To Interventional Outcome No Telemetry Bed successful
[2017-05-11] MEDS ORDERED: VANCOMYCIN 500 MG VIAL ONE (15:17)
[2017-05-11] MEDS ORDERED: VANCOMYCIN HCL 1000 MG VIAL ONE (15:17)
[2017-05-11] MEDS ORDERED: LIDOCAINE HCL 2% 50 ML VIAL ONE (15:17)
[2017-05-11] MEDS ORDERED: ceFAZolin INJ 1,000 MG VIAL ONE (15:17)
[2017-05-11] MEDS ORDERED: GENTAMICIN SULFATE 80 MG/2 ML VIAL ONE (15:20)
--- NOTE | 2017-05-11 17:03 | CATHPROC ---
[facility] HIS Report Study Information Study Number Admission Scheduled Start Study Start [id number] May 04 2017 4:44PM 05/11/2017 May 11 2017 2:42PM [place] [facility] Cardiac Catheterization Admit Source Facility Department Other [facility] Clerk Physician and Clinical Staff Initial Dara Mahmood Hammer Shop Supervisor Maynor Murray,RT(R) Other Anesthesia, DEALER SALES MANAGER Other Cory Dewitt,RALPH(BS) Recorder Fabi Sharma,RN Recorder Bella Rivera BSRN Scrub Tory Mccrary,RT(R) TECH2 Procedures Performed Procedure Lead Insertion Equipment Time Dispatcher Clerk Description Size Mfg Part Number Used/Scraped 15:20 [employer] MEDICAL DRAPE, RAY[place]ELD X-RAY 12X17 12X17 D-100 *[id number] Used 15:32 [employer] MEDICAL DRAPE, [place] X-RAY 12X17 12X17 D-100 *[id number] Used [id number] 16:41 CARDIVA MEDICAL VASCADE, FR5 CLOSURE SYSTEM FR 5 Used *[id number] INTRODUCER SET, 15:20 [employer]. FR 5 [id number] *[id number] Used MICROPUNCTURE, STIFFENED [id number] 15:32 [employer] DRAPE, IOBAN 2 6661EZ 26cm x 20cm Used *[id number] 15:20 [employer] DRAPE, IOBAN 2 6661EZ 26cm x 20cm Used *[id number] 15:20 [employer] SUTURE, STRIP PLUS 1/2" * Used *[id number] 15:20 [employer] PACER ADHESIVE, MASTISOL 2/3CC 2/3CC 0523-48 Used 15:20 [employer] PACER MELLO, LIMB * 2530 *[id number] Used [id number] 15:20 [employer] PACER PACK, PACER CUSTOM * Used *[id number] 15:20 [employer] PACER PEN, SKIN DUAL W/ RULER * Used *[id number] 15:23 [employer] PACER SAFE SHEATH, FR9, 13CM FR 9 [id number] Used PROBE COVER, STERILE [id number] 15:35 [employer]evo * Used ULTRASOUND W/ GEL *[id number] PROBE COVER, STERILE [id number] 15:20 [employer] MEDICAL * Used ULTRASOUND W/ GEL *[id number] 16:04 Needle Sponge Count 10 10 Used 15:29 Needle Sponge Count 2 22 Used 16:33 Needle Sponge Count 2 22 Used 16:47 Needle Sponge Count 2 22 Used 15:29 Needle Sponge Count 3 3 Used 16:03 Needle Sponge Count 3 3 Used 16:46 Needle Sponge Count 3 3 Used 16:32 Needle Sponge Count 3 3 Used 16:32 Needle Sponge Count 30 1 Used 16:47 Needle Sponge Count 30 1 Used 16:03 Needle Sponge Count 30 1 Used 15:29 Needle Sponge Count 30 1 Used [id number] *[id number] SUTURE, 0 ETHIBOND [CT1] (CX21D), 8pk SUTURE, 2-0 VICRYL [CT1] ([id number]) SUTURE, 2-0 VICRYL [CT1] ([id number]) SUTURE, 4-0 VICRYL [PS2] (RBD012Z) [id number] 15:20 [employer] MEDICAL BLANKET,WARM AIR CCL * Used *[id number] [facility] PAD, ELECTROSURGICAL 15:20 * E7507 *[id number] Used SURGICAL GROUNDING ORANGE 16:26 [employer] DEFIBRILLATOR, VISIA AF MRI VR VVEVVIR [id number] Used LEAD, SPRINT QUATTRO SECURE 16:08 [employer] * [id number] Used 55CM 15:20 [employer] MONITOR, PACEMAKER\\ICD [id number] Used [id number] 15:20 [employer] MACKENZIE. / * Used *50983 Equipment Model, Serial, Lot Number and Expiration Data Description Model Number Serial Number Lot Number Expiration Date DEFIBRILLATOR, VISIA AF MRI VR [id number] 05-28-2018 LEAD, SPRINT QUATTRO SECURE 6947-55 [id number] 06-19-2018 55CM Medication Medication Total Dose (Bolus/Oral) Medication Total Dosage/Unit 2% XYLOCAINE 50 mL Medications (Bolus/Oral) Medication Time Given Dosage/Unit Administered By Reason 2% XYLOCAINE 05/11/2017 3:54:39 PM 50 mL Dara Wilkinson For pain 50 mL 2% XYLOCAINE given in lab by Dara Wilkinson via Subcutaneous. Ordered by Dara Wilkinson. Reas on: For pain. left upper chest Medication (Drip) Medication Time Given Dosage/Unit Concentration/Unit Diluent (ml) Solution ANCEF 05/11/2017 3:25:00 PM 2 g 2 g ANCEF given in lab by Anesthesia, DEALER SALES MANAGER in Right Forearm via Peripheral IV. Ordered by Marc Wilkinson. Reason: As per physicians verbal order. VANCOMYCIN DRIP 05/11/2017 3:25:15 PM 1 g 1 g VANCOMYCIN DRIP given in lab by Anesthesia, DEALER SALES MANAGER in Right Forearm via Peripheral IV. Ordered by Dara Collins. Reason: As per physicians verbal order. Final Case Assessment Cardiovascular HR NIBP 82 115/70 Edema Present Skin color Skin None Normal Warm Dry Neurological State Oriented to time-place- Alert Moves all extremities person Respiration - General Respiration Rate SpO2 (%) (B/min) 20 99 Chronological Log Time Study Chronological Log 15:16:47 Initial procedure has been completed. Beginning additional procedure. 15:16:48 Catheter(s) removed without difficulty 15:16:48 NOTE: This patient is undergoing an additional procedure while still in the Cardiac Cath L ab. 15:16:49 Sheath(s) left in place, 0.9ns kvo connected, secured and will be removed in Holding Area 15:16:52 Anesthesia remains at bedside. Assuming care of ptJose Connor 15:17:09 Bovie ground pad applied to: right thigh 15:17:25 Verbal Stimulation=2 Physical Stimulation=2 Airway=2 Respiration=2 TOTAL=10. (0=absent, 1= limited, 2=present) 15:20:12 2% CHLORHEXIDINE GLUCONATE WASH AND NASAL SWIPE DONE PRIOR TO PROCEDURE. 2 g ANCEF given in lab by Anesthesia, DEALER SALES MANAGER in Right Forearm via Peripheral IV. Ordered by Dara Torres. Reason: 15:25:00 As per physicians verbal order. 1 g VANCOMYCIN DRIP given in lab by Anesthesia, DEALER SALES MANAGER in Right Forearm via Peripheral IV. Order ed by Minh 15:25:15 Dara. Reason: As per physicians verbal order. 15:27:57 Reference ECG taken First Sponge And Instrument Count Done by Tory Mccrary, RT(R) TECH2. 15:28:14 Hypo's: 3, Sponges: 30, Bovie/scratch: 2 Sutures: 11, Blades: 2, Instruments: 25, Syveck Patches: 0 verified w DB 20 raytec sponges add ed for a total of 50 15:31:18 Upper Chest Prepped Times Two. 15:34:00 MD notified ready. Time Out. Correct patient, procedure, procedure equipment, site and side verified with physicia n present. Time 15:53:15 concurred by MD, individual staff and DEALER SALES MANAGER. Time Out #2 - Consents verified, patient in correct position, all results are labled and displa yed, safety precautions 15:53:24 taken, antibiotics administered. Time out concurred by MD, individual staff and DEALER SALES MANAGER in procedu re 15:53:28 Case Start 50 mL 2% XYLOCAINE given in lab by Dara Wilkinson via Subcutaneous. Ordered by Dara Wilkinson . Reason: For 15:54:39 pain. left upper chest 15:57:25 Surgical Incision Made. 15:57:35 A pocket was created at the L Upper Chest. 15:58:00 One antibiotic sponge put into the surgical pocket. 16:05:57 Vascular access was obtained in the Subclav. Vein (Lft. with micropuncture 16:06:38 A SAFE SHEATH, FR9, 13CM FR 9 was advanced into the Subclav. Vein (Lft using the Percutaneo us technique. 16:09:06 A LEAD, SPRINT QUATTRO SECURE 55CM * was inserted and positioned in the RV. 16:10:56 Lead placement verified under fluoroscopy 16:10:58 The RV lead impedance and threshold being tested. 16:12:41 Lead repositioned. 16:12:56 Lead placement verified under fluoroscopy 16:12:59 The RV lead impedance and threshold being tested. 16:19:29 Lead repositioned. 16:20:23 Lead placement verified under fluoroscopy 16:20:26 The RV lead impedance and threshold being tested. 16:20:38 The RV lead was sutured to the fascia. 16:24:54 One sponge removed from pocket. 16:26:38 A DEFIBRILLATOR, VISIA AF MRI VR VVEVVIR was connected and placed in the pocket. 16:26:48 Implant Procedure was performed. 16:26:56 A ICD Implant . (Single) 16:30:31 The DFT was Success at 20 Joules, 34 Ohms lead impedance and 4700 ms charge time. Second Sponge And Instrument Count Done by Maynor Murray, RT(R). 16:31:47 Hypo's: 3, Sponges: 30, Bovie/scratch: 2 Sutures: ~SUTURE~, Blades: 2, Instruments: 25, Syveck Patches: 0 20 sponges added for a total o f 50 16:33:08 Bedside Report will be given. 16:33:55 The pocket was closed. 16:35:24 CVICU notified of patients pending arrival. Ida FLORES 16:46:05 Sterile dressing applied to site The Final Sponge And Instrument Count Done by Fabi Sharma, MARK. 16:46:15 Hypo's: 3, Sponges: 30, Bovie/scratch: 2 Sutures: 11, Blades: 2, Instruments: 25, Syveck Patches: 0 20 sponges added to count for a tota l of 50 Assessment: Final Case, HR=82 BPM, XDOM=733/70 mmhg, Edema=None, Color=Normal, Skin = Warm, Dry 16:48:18 Neurological: State=Alert, Ox3, NARVAEZ Respiration: Resp=20 B/min, SpO2=99 % 16:51:00 VASCADE, FR5 CLOSURE SYSTEM FR 5 placement in the Fem Art (right) 16:55:28 Sheath removed; pressure applied to access site by Maynor Murray. Hemostasis achieved. Dressing applied. 16:56:30 Defibrillator and ground pads removed. Skin intact. 16:56:32 Implantable Device card placed in patient's chart. 17:01:07 Case End 17:10:00 Patient moved to stretcher and transported to CVICU in stable condition. End Study - Contrast Media Used In Study Contrast Total Opened (mL) Total Used (mL) Total Wasted (mL) Unspecified 0 0 0 End Study - Radiation Exposure Fluoro Time (minutes) 4.0 End Study - Patient Disposition Complications Transferred To Interventional Outcome No Telemetry Bed successful
--- NOTE | 2017-05-11 17:43 | RADRPT ---
EXAM DATE/TIME: 05/11/2017 17:20 [place] COMPARISON: CHEST SINGLE AP, May 07, 2017, 7:00. INDICATIONS : Evaluate for pneumothorac post heart cath, ICD placement MEDICAL HISTORY : Cardiovascular disease. SURGICAL HISTORY : None. ENCOUNTER: Subsequent ACUITY: 1 week PAIN SCORE: Non-responsive. LOCATION: chest FINDINGS: An AICD device has been placed. Heart is moderately enlarged. There is no pneumothorax. Mild right basilar airspace disease persists. CONCLUSION: No evidence of pneumothorax status post AICD placement. Nikhil Luciano MD on May 11, 2017 at 17:39 Board Certified Radiologist. This report was verified electronically.
--- NOTE | 2017-05-11 22:05 | MP ---
cc: DARA WILKINSON DATE OF SURGERY 05/11/2017 INDICATIONS Ventricular fibrillation arrest, cardiomyopathy, congestive heart failure. PROCEDURE PERFORMED 1. Comprehensive electrophysiology study with right atrial and right ventricle pacing and sensing. 2. Coronary sinus cannulation with coronary sinus pacing and sensing. 3. IV isoproterenol administration for tachycardia induction. ACCESS SITE The right femoral vein. EQUIPMENT USED Quadripolar catheter x3. MEDICATIONS Sedation provided by anesthesia, Isoproterenol IV. COMPLICATIONS None. METHOD OF HEMOSTASIS Manual compression. RESULTS 1. Baseline EKG: atrial fibrillation with controlled ventricular response. 2. Baseline intervals (milliseconds) HV 62, QRS 74, QT 380, QTC 440. 3. Coronary sinus stimulation was performed at baseline. No arrhythmias induced. 4. Right ventricle programmed electrical stimulation. Performed at baseline and on isoproterenol. A Baseline. RVRP 500/240/270. 400/220/250 Closest coupling intervals. 500/270/180. 400/250/180 500/270/260/180 400/250/240/190 B. On isoproterenol. RVRP 500/240/270. 400/200/230 Closest coupling intervals 500/270/180 400/230/180 500/270/210/180 400/230/210/180 5. Arrhythmias induced: None DIAGNOSES 1. No inducible ventricular arrhythmias. 2. Persistent atrial fibrillation DISPOSITION Ms. Self will undergo placement of single chamber implantable defibrillator. Dara Wilkinson MD OQ/KK /3:04 PM /9:36 PM ALESSANDRO
--- NOTE | 2017-05-11 22:25 | MA ---
cc: SAMMI OLSEN DATE: 05/11/2017 INDICATIONS Ventricular fibrillation arrest, cardiomyopathy with severe left ventricular systolic dysfunction. PROCEDURE PERFORMED Retrograde left heart catheterization with left ventriculography and selective coronary angiography. ACCESS SITE Right femoral artery. EQUIPMENT USED 5 Finnish pigtail catheter, 5 Finnish JL4 and AR modified coronary artery catheters. MEDICATIONS Sedation provided by anesthesia. COMPLICATIONS: None. BLOOD LOSS: Less than 10 cc METHOD OF HEMOSTASIS Manual compression. RESULTS HEMODYNAMICS Heart rate 90 beats per minute. Left ventricular end-diastolic pressure 6 mmHg. Left ventricle 100/6. Aorta 100/58/75. EF 45%. Wall motion, mild global hypokinesis, no mitral regurgitation. CORONARY ANGIOGRAPHY The left main coronary artery, patent. Left anterior descending artery, patent. D1 patent. Left circumflex artery, patent. OM-1 patent. The right coronary artery is a dominant vessel which is patent. PDA is patent. PLV is patent. DIAGNOSIS 1. Widely patent coronary arteries. 2. Mild left ventricular systolic dysfunction, consistent with nonischemic cardiomyopathy. DISPOSITION Ms. Camp will undergo electrophysiology study and placement of implantable defibrillator. MD RD Ahumada/MENDEZ /2:59 PM /9:30 PM ALESSANDRO
--- NOTE | 2017-05-11 23:01 | MR ---
cc: SAMMI OLSEN DATE: 05/11/2017 INDICATION Ventricular fibrillation arrest, nonischemic cardiomyopathy, congestive heart failure. The patient is on maximum tolerated guideline directed medical therapy. Ejection fraction 25-30% by echocardiogram 1 week ago. Secondary prevention. PROCEDURE PERFORMED 1. Placement of Medtronic single chamber defibrillator. 2. Testing of Medtronic defibrillator system. ACCESS SITE Left subclavian vein. EQUIPMENT USED Medtronic model DDS 81V4 single chamber MRI compatible defibrillator, serial number [id number] Right ventricle lead: Medtronic model 6947M-55 cm screw-in ventricle lead, serial number [id number]. LEAD TESTING R wave 6.3 mV, slew rate 3.3 mV, lead impedance 839 ohms, pacing threshold 0.5 volts at 0.5 milliseconds. Pacing at 10 volts, no diaphragmatic stimulation. Ventricle fibrillation was induced on one occasion and terminated with a single 20 joule shock with an impedance of 34 ohms resulting in sinus rhythm. Parameters: Mode VVI, lower rate 40. Prepare settings. DIAGNOSIS 1. Successful placement of Medtronic single-chamber defibrillator. 2. Successful testing of Medtronic defibrillator system. 3. Defibrillation threshold of 20 joules or less. DISPOSITION Ms. Self will be monitored on telemetry after the procedure. We will initiate long-term monitoring of her device. We will start anticoagulation within 48 hrs since she was converted to sinus rhythm and it has been one week since her fall. I will see her back for followup in our office after discharge. MD RD Ahumada/MENDZE /4:59 PM /10:50 PM ALESSANDRO
[2017-05-11] MEDS: ceFAZolin 2 GM PREMIX 50 ML IV SCH (23:28)
[2017-05-12] VITALS (8 sets, daily range): BP systolic 98–118; BP diastolic 50–69; PULSE 68–76; RESP 14–18; TEMP 97.7–98.7; O2SAT 93–97
[2017-05-12] MEDS ORDERED: VANCOMYCIN INJ 1,000 MG in SODIUM CHLOR 0.9% 250 ML INJ 250 ML IV ONE (03:00)
[2017-05-12] MEDS: CHLORHEXIDINE GLUCONATE 2 % 1 PACK (2 CLOTHS) TOP SCH ×2 (04:00)
[2017-05-12 05:56] LABS: HEMATOCRIT 34.4 % (35.0-46.0); MEAN CELL VOLUME 96.3 FL (80.0-100.0); MEAN CORPUSCULAR HEMOGLOBIN 32.6 PG (27.0-34.0); MEAN CORPUSCULAR HGB CONC 33.8 % (32.0-36.0); PLATELET COUNT 179 TH/MM3 (150-450); RED BLOOD COUNT 3.57 MIL/MM3 (4.00-5.30); RED CELL DISTRIBUTION WIDTH 13.1 % (11.6-17.2); REVIEW FLAG FINAL; WHITE BLOOD COUNT 10.5 TH/MM3 (4.0-11.0)
[2017-05-12 06:17] LABS: BICARBONATE 26.9 MEQ/L (21.0-32.0); POTASSIUM 3.9 MEQ/L (3.5-5.1)
[2017-05-12] MEDS: ceFAZolin 2 GM PREMIX 50 ML IV SCH (06:42)
[2017-05-12] MEDS: DOCUSATE SODIUM 50 MG/SENNA 8.6 MG TAB PO SCH ×2 (09:00→21:00)
[2017-05-12] MEDS: SPIRONOLACTONE 25 MG TAB PO SCH ×2 (09:23→18:24)
[2017-05-12] MEDS: LISINOPRIL 5 MG TAB PO SCH ×2 (09:23→21:25)
[2017-05-12] MEDS: FAMOTIDINE 20 MG/2 ML VIAL IV PUSH SCH ×2 (09:24→21:25)
[2017-05-12] MEDS: CARVEDILOL 6.25 MG TAB PO SCH ×2 (09:24→21:25)
[2017-05-12] MEDS: SODIUM CHLORIDE 0.9% FLUSH 10 ML FLUSH IV FLUSH SCH ×2 (09:25→21:26)
[2017-05-12] MEDS: levETIRAcetam INJ 100 ML IV SCH ×2 (09:25→21:24)
--- NOTE | 2017-05-12 11:02 | RADRPT ---
EXAM DATE/TIME: 05/12/2017 09:58 [facility] COMPARISON: CT BRAIN W/O CONTRAST, May 04, 2017, 16:42. CT BRAIN W/O CONTRAST, May 05, 2017, 11:33. INDICATIONS : Follow up intracranial bleed. RADIATION DOSE: 34.45 CTDIvol (mGy) MEDICAL HISTORY : None SURGICAL HISTORY : None. ENCOUNTER: Subsequent ACUITY: 1 week PAIN SCALE: 0/10 LOCATION: cranial TECHNIQUE: Multiple contiguous axial images were obtained of the head. Using automated exposure control and adj ustment of the mA and/or kV according to patient size, radiation dose was kept as low as reasonably a chievable to obtain optimal diagnostic quality images. DICOM format image data is available electro nically for review and comparison. FINDINGS: CEREBRUM: A small foci of subarachnoid hemorrhage identified on the patient's initial evaluation are resolving. A small crescent-shaped hypodense extra-axial fluid collection has developed along the right frontal lobe. It measures proximal C7 millimeters in width. Mild sulcal effacement of the right frontal lobe is noted. There is no evidence of intra-axial hematoma, increasing edema or mass effect. POSTERIOR FOSSA: The cerebellum and brainstem are intact. The 4th ventricle is midline. The cerebellopontine angle i s unremarkable. EXTRACRANIAL: Is not seen to remains evident in the sphenoid sinus. SKULL: Left temporal bone fracture is again noted. The middle ear has become completely opacified. CONCLUSION: 1. Resolving small foci of subarachnoid hemorrhage following traumatic brain injury. 2. New crescent-shaped hypodense fluid collection along the right frontal lobe characteristic of a sm all posttraumatic hygroma. 3. Left temporal bone fracture with opacification of the middle ear. 4. Opacified sphenoid sinus; unchanged. Nikhil Luciano MD on May 12, 2017 at 10:51 Board Certified Radiologist. This report was verified electronically.
--- NOTE | 2017-05-12 16:10 | PD.CARD.PN ---
Subjective Subjective Remarks No CP or SOB Objective Medications Current Medications Medications (Trade) Dose Ordered Sig/Tom Route Start Time Stop Time Status Last Admin (Zofran Inj) 4 mg Q6H PRN IV PUSH 05/04/17 17:00 (Chlorhexidine 2% Cloth) Taper DAILY@04 TOP 05/05/17 04:00 05/01/18 03:59 Potassium Chloride 100 ml @ 50 mls/hr Q2H PRN IV 05/04/17 17:00 Potassium Chloride 100 ml @ 50 mls/hr Q2H PRN IV 05/04/17 17:00 (K-Lyte Cl Eff) 50 meq UNSCH PRN PO 05/04/17 17:00 Potassium Chloride 100 ml @ 25 mls/hr UNSCH PRN IV 05/04/17 17:00 Potassium Chloride 100 ml @ 50 mls/hr Q2H PRN IV 05/04/17 17:00 Magnesium Sulfate 4 gm/Sodium Chloride 100 ml @ 50 mls/hr UNSCH PRN IV 05/04/17 17:00 (Mag-Ox) 800 mg UNSCH PRN PO 05/04/17 17:00 Magnesium Sulfate 2 gm/Sodium Chloride 100 ml @ 50 mls/hr UNSCH PRN IV 05/04/17 17:00 (K-Phos) 2,000 mg Q4H PRN PO 05/04/17 17:00 Sodium Phosphate 30 mmol/Sodium Chloride 250 ml @ 42 mls/hr UNSCH PRN IV 05/04/17 17:00 (K-Phos) 2,000 mg UNSCH PRN PO/TUBE 05/04/17 17:00 Potassium Phosphate 30 mmol/ Sodium Chloride 260 ml @ 42 mls/hr UNSCH PRN IV 05/04/17 17:00 05/05/17 09:01 Levetriacetam 100 ml @ 400 mls/hr Q12HR IV 05/04/17 21:00 05/12/17 09:25 (Brethine Inj) 1 mg UNSCH PRN SQ 05/04/17 19:45 Amiodarone HCl 450 mg/Dextrose 250 ml @ 33.33 mls/ hr TITRATE PRN IV 05/04/17 19:45 05/06/17 07:42 (NS Flush) 2 ml UNSCH PRN IV FLUSH 05/04/17 19:45 (NS Flush) 2 ml BID IV FLUSH 05/04/17 21:00 05/12/17 09:25 (Tylenol) 650 mg Q6H PRN PO 05/04/17 19:45 05/05/17 06:58 (Pepcid Inj) 20 mg Q12HR IV PUSH 05/04/17 21:00 05/12/17 09:24 (Duoneb Neb) 1 ampule Q2HR NEB PRN INH 05/04/17 19:45 Miscellaneous Information 1 Q361D XX 05/04/17 19:45 (Chlorhexidine 2% Cloth) Taper DAILY@04 TOP 05/05/17 04:00 05/01/18 03:59 05/11/17 04:00 (Chlorhexidine 2% Cloth) 3 pack UNSCH PRN TOP 05/04/17 19:45 (Yaneth-Colace) 1 tab BID PO 05/04/17 21:00 05/10/17 09:58 (Milk Of Magnesia Liq) 30 ml Q12H PRN PO 05/04/17 19:45 (Senokot) 17.2 mg Q12H PRN PO 05/04/17 19:45 (Dulcolax Supp) 10 mg DAILY PRN RECTAL 05/04/17 19:45 (Lactulose Liq) 30 ml DAILY PRN PO 05/04/17 19:45 (Coreg) 6.25 mg Q12HR PO 05/06/17 09:00 05/12/17 09:24 (Pill Splitter) 1 ea UNSCH PRN OTHER 05/06/17 10:00 (Aldactone) 25 mg BID@18 PO 05/07/17 09:00 05/12/17 09:23 (Aspirin Chew) 81 mg DAILY CHEW 05/08/17 10:00 Future Hold (Lovenox Inj) 40 mg Q24H SQ 05/08/17 16:00 Future Hold (Prinivil) 2.5 mg BID PO 05/09/17 21:00 05/12/17 09:23 Vital Signs / I&O Vital Signs Date Time Temp Pulse Resp B/P (MAP) Pulse Ox O2 Delivery O2 Flow Rate FiO2 05/12/17 11:00 98.7 76 16 112/67 (82) 96 05/12/17 11:00 72 05/12/17 11:00 96 Nasal Cannula 2.00 05/12/17 07:20 95 Nasal Cannula 4.00 05/12/17 07:00 98.4 72 18 98/51 (67) 94 05/12/17 07:00 73 05/12/17 07:00 94 Nasal Cannula 2.00 05/12/17 03:00 97.7 72 14 100/50 (67) 93 05/12/17 03:00 72 05/12/17 03:00 93 4.00 05/11/17 23:00 97.9 89 14 122/73 (89) 97 05/11/17 23:00 89 05/11/17 23:00 97 4.00 05/11/17 20:30 97 4.00 05/11/17 19:25 97 Nasal Cannula 1.00 05/11/17 19:00 87 05/11/17 19:00 97 Nasal Cannula 2.00 05/11/17 19:00 97.8 87 14 121/77 (92) 97 05/11/17 17:20 92 Nasal Cannula 2.00 05/11/17 17:20 96 05/11/17 17:20 98.1 96 18 120/59 (79) 92 I/O 05/11/17 05/11/17 05/11/17 05/12/17 05/12/17 05/12/17 07:00 15:00 23:00 07:00 15:00 23:00 Intake Total 210 ml 300 ml 540 ml Output Total 800 ml Balance -590 ml 300 ml 540 ml Intake Oral 210 ml 240 ml IV Total 300 ml 300 ml Output Urine Total 800 ml # Voids 1 4 4 # Bowel Movements 0 1 Physical Exam GENERAL: Awake, in NAD SKIN: Warm and dry. HEAD: Normocephalic. EYES: No scleral icterus. No injection or drainage. NECK: Supple, trachea midline. No JVD or lymphadenopathy. CARDIOVASCULAR: Regular, no murmur, gallops, or rubs. RESPIRATORY: Breath sounds equal bilaterally. No accessory muscle use. GASTROINTESTINAL: Abdomen soft, non-tender, nondistended. MUSCULOSKELETAL: No cyanosis, or edema. Wound clean, no hematoma Laboratory Laboratory Tests Test 05/12/17 04:08 White Blood Count 10.5 TH/MM3 Red Blood Count 3.57 MIL/MM3 Hemoglobin 11.6 GM/DL Hematocrit 34.4 % Mean Corpuscular Volume 96.3 FL Mean Corpuscular Hemoglobin 32.6 PG Mean Corpuscular Hemoglobin Concent 33.8 % Red Cell Distribution Width 13.1 % Platelet Count 179 TH/MM3 Mean Platelet Volume 8.0 FL Blood Urea Nitrogen 13 MG/DL Creatinine 0.52 MG/DL Random Glucose 88 MG/DL Calcium Level 8.9 MG/DL Sodium Level 137 MEQ/L Potassium Level 3.9 MEQ/L Chloride Level 102 MEQ/L Carbon Dioxide Level 26.9 MEQ/L Anion Gap 8 MEQ/L Estimat Glomerular Filtration Rate 118 ML/MIN Imaging Last [address] 05/12/17 0000 Signed Impressions: Service Date/Time: Friday, May 12, 2017 09:58 - CONCLUSION: 1. Resolving small foci of subarachnoid hemorrhage following traumatic brain injury. 2. New crescent-shaped hypodense fluid collection along the right frontal lobe characteristic of a small posttraumatic hygroma. 3. Left temporal bone fracture with opacification of the middle ear. 4. Opacified sphenoid sinus; unchanged. Nikhil Luciano MD Assessment and Plan Problem List: (1) Cardiac arrest ICD Codes: I46.9 - Cardiac arrest, cause unspecified Status: Acute (2) Ventricular fibrillation ICD Codes: I49.01 - Ventricular fibrillation Status: Acute (3) Subarachnoid hemorrhage following injury ICD Codes: S06.6X9A - Traumatic subarachnoid hemorrhage with loss of consciousness of unspecified duration, initial encounter Status: Acute (4) Atrial fibrillation ICD Codes: I48.91 - Unspecified atrial fibrillation (5) Respiratory failure ICD Codes: J96.90 - Respiratory failure, unspecified, unspecified whether with hypoxia or hypercapnia (6) Cardiomyopathy ICD Codes: I42.9 - Cardiomyopathy, unspecified Assessment and Plan Cath with patent cors and mild LV systolic dysfunction. EP study with no inducible arrhythmias. ICD placed, pt now in SR. Normal ICD function. Wound stable. Continue JOSE L-I and beta isaías, titrate as tolerated. Full anticoagulation needs to be started; plan to use Eliquis 5 mg BID; will ask neurosurgery if OK based on today's head CT. D/w pt and family. Problem Qualifiers (1) Subarachnoid hemorrhage following injury: Qualified Codes: S06.6X3A - Traumatic subarachnoid hemorrhage with loss of consciousness of 1 hour to 5 hours 59 minutes, initial encounter Dara Wilkinson MD May 12, 2017 16:10
[2017-05-12] MEDS ORDERED: ceFAZolin 2 GM PREMIX 50 ML IV ONE (18:30)
--- NOTE | 2017-05-12 19:38 | EKG ---
Date Performed: 05/11/2017 Time Performed: 22:58:04 PTAGE: 67 years EKG: Sinus rhythm with PVC(s) with borderline 1st degree A-V block Poor R wave progression - probable normal variant W hen compared to previous tracing, patient is no longer in atrial Fibrillation. Borderline ECG PREVIOUS TRACING : 05/08/2017 18.27 DOCTOR: William Gonzalez Interpretating Date/Time 05/12/2017 19:36:56
--- NOTE | 2017-05-12 19:40 | EKG ---
Date Performed: 05/12/2017 Time Performed: 05:55:28 PTAGE: 67 years EKG: Sinus rhythm with PAC(s) with borderline 1st degree A-V block Possible septal infarct - age undetermined Lateral T wave changes are nonspecific Low QRS voltages in limb lead T wave abnormality is slightly more prom inant when compared to Previous tracing. Clinical corrolation is suggested. Abnormal ECG PREVIOUS TRACING : 05/11/2017 22.58 DOCTOR: William Gonzalez Interpretating Date/Time 05/12/2017 19:39:09
--- NOTE | 2017-05-12 22:25 | HHI.PR ---
Subjective Remarks patient seen today around noon. Still with word finding difficulty, however no overt complaints. Daughter at bedside. Very supportive. Objective Vital Signs Date Time Temp Pulse Resp B/P (MAP) Pulse Ox O2 Delivery O2 Flow Rate FiO2 05/12/17 20:57 96 Nasal Cannula 2.00 05/12/17 19:00 75 05/12/17 19:00 98.3 69 18 118/69 (85) 96 05/12/17 19:00 96 Nasal Cannula 2.00 05/12/17 15:00 98.0 74 16 105/56 (72) 97 05/12/17 15:00 76 05/12/17 15:00 96 Nasal Cannula 2.00 05/12/17 11:00 98.7 76 16 112/67 (82) 96 05/12/17 11:00 72 05/12/17 11:00 96 Nasal Cannula 2.00 05/12/17 07:20 95 Nasal Cannula 4.00 05/12/17 07:00 98.4 72 18 98/51 (67) 94 05/12/17 07:00 73 05/12/17 07:00 94 Nasal Cannula 2.00 05/12/17 03:00 97.7 72 14 100/50 (67) 93 05/12/17 03:00 72 05/12/17 03:00 93 4.00 05/11/17 23:00 97.9 89 14 122/73 (89) 97 05/11/17 23:00 89 05/11/17 23:00 97 4.00 I/O 05/11/17 05/11/17 05/11/17 05/12/17 05/12/17 05/12/17 07:00 15:00 23:00 07:00 15:00 23:00 Intake Total 210 ml 300 ml 540 ml 1500 ml Output Total 800 ml 600 ml Balance -590 ml 300 ml 540 ml 900 ml Intake Oral 210 ml 240 ml 1500 ml IV Total 300 ml 300 ml Output Urine Total 800 ml 600 ml # Voids 1 4 4 2 # Bowel Movements 0 1 1 Result Diagram: 05/12/1740705/12/17407 Objective Remarks GENERAL: nad.sitting edge of bed .oriented to place, name. SKIN: Warm and dry. HEAD: Normocephalic. EYES: No scleral icterus. No injection or drainage. NECK: Supple, trachea midline. No JVD . CARDIOVASCULAR: Regular rate and rhythm without murmurs, gallops, or rubs. RESPIRATORY: Breath sounds equal bilaterally. No accessory muscle use.left upperchest dressingcdi GASTROINTESTINAL: Abdomen soft, non-tender, nondistended. MUSCULOSKELETAL: No cyanosis, or edema. BACK: Nontender without obvious deformity. No CVA tenderness. A/P Assessment and Plan 05/12. dw cardiology, who request neurosurgery reconsult for consideration of placing on full ac (eliquis). ns reconsulted.dw daughter at bedside. family would eventually like home hh, but is not sure at this time. will place face-to- face. 67 yo F with [id number] cardiac arrest and traumatic SAH. stable for transfer to step-down unit. Plan for [facility] Thursday. Satting well on room air. Neuro: //Traumatic subarachnoid hemorrhage, nondisplaced left temporal and parietal bone fracture //Hypoxic ischemic encephalopathy - Clinically neuro exam showing improvement, patient following commands communicative - F/u CT head05/05 resolution of SAH, neurosurgery Dr. Carmona - Because of improvement in clinical exam initial plan for induced hypothermia was abandoned - Anticoagulation reversed with Kcentra due to subarachnoid hemorrhage Resp: //Acute hypoxic and hypercarbic Respiratory failure - resolved. - Intubated for an airway protection - Extubated 05/07/17, tolerating well - DuoNeb's when necessary - Possible aspiration pneumonitis, f/u sputum culture negative - room air. CVS: //V. fib arrest //Chronic atrial fibrillation //Nonischemic cardiomyopathy EF 25-30%. Mild to moderate MR TR //Lactic acidosis- resolved. //Troponin elevation - Status post successful cardiopulmonary resuscitation - Coreg 6.25 mg twice a day and lisinopril 2.5 mg daily 05/06. Aldactone 25 mg po BID 05/07 - PO meds on hold, as she failed swallow. Reevaluate today. Continue IV metoprolol until cleared for by mouth - Discontinued amiodarone drip 05/06 - Cardiac cath on Thursday cleared for antiplatelet therapy by Dr. Carmona. Anticoagulation Okd after 1 week - AICD EP study on Thursday - Echocardiogram EF 25-30%. There is global left ventricular dysfunction. Mild MR which is central (possible coaptation problem). Mild to moderate tricuspid valve regurgitation. - Start ASA today if ok with N/S = 05/12. Discussed with cardiology. Status post AICD placement. Cardiology would like to start full anticoagulation. Consult neurosurgery as per cardiology request. GI: - regular basic diet per speech. - IV famotidine Constipation: bowel regimen : - Monitor the renal function closely. d/c tam. - IV Lasix 40 mg 05/06 and 05/07 - Aldactone started ENDO: - Electrolyte replacement per protocol ID: Probable aspiration pneumonitis- resolving. - F/u sputum culture, watch off antibiotics. clinically improving. DVT GI prophylaxis - Teds SCDs - Start full anticoagulation ifokay per neurosurgery. DC plan: Pending improvement. awat NS inout on ac. appreciate cards/ns assist Discharge Planning possible discharge tomorrow -Cardiology would like full anticoagulation with eliquis (if cleared for this by neurosurgery) = PT recommends rehabilitation. Family requests home with home health. -Possible discharge to rehabilitation versus home with home health in the next 2 days. Sridhar Chang MD May 12, 2017 22:25
--- NOTE | 2017-05-12 22:26 | HHI.FF ---
Face to Face Verification Diagnosis: (1) Subarachnoid hemorrhage following injury (2) Cardiomyopathy (3) Cardiac arrest Physical Therapy Order: Evaluate and Treat Occupational Therapy Order: Evaluate and Treat Speech Therapy Order: To Improve: Speech and communication skills Home Health Nursing Order: Wound care and dressing changes Nursing assessment with vital signs Home Health Aide Order: To Assist In: Bathing and personal care Shake Feeder Order: To Provide: Long range planning I have seen patient Jimena Camp on 05/12/17. My clinical findings support the need for the requested home health care services because: Deconditioned w/ increased weakness Limited ability to care for self I certify that my clinical findings support that this patient is homebound because: Unsafe to leave home unassisted Sridhar Chang MD May 12, 2017 22:26
--- NOTE | 2017-05-12 22:55 | HHI.NSPN ---
History Chief Complaint: closed head injury Exam Results Vital Signs Date Time Temp Pulse Resp B/P (MAP) Pulse Ox O2 Delivery O2 Flow Rate FiO2 05/12/17 20:57 96 Nasal Cannula 2.00 05/12/17 19:00 75 05/12/17 19:00 98.3 18 118/69 (85) 05/10/17 15:45 21 Intake and Output 05/12/17 05/12/17 05/13/17 08:00 16:00 00:00 Intake Total 540 ml 1500 ml Output Total 600 ml Balance 540 ml 900 ml Physical Examination GENERAL: Patient resting comfortably in bed in no acute distress. Vital signs are stable. HEAD: Normocephalic, atraumatic. EYES: Pupils equal. Sclera non icteric. RESPIRATORY: CTA Bilaterally. She is extubated. 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 NEUROLOGIC: Patient awakens to voice. Pupils are 3 mm bilaterally, reactive bilaterally. She follows simple commands. She has a hoarse voice but is able to state her name. Lab, Micro, Other Results 05/12/17 CT scan head images reviewed by the undersigned. There is a relatively mild right frontal subdural fluid collection consistent with hygroma. No definite hematoma. No significant mass effect. Head CT 05/12/17 0000 Signed Impressions: Service Date/Time: Friday, May 12, 2017 09:58 - CONCLUSION: 1. Resolving small foci of subarachnoid hemorrhage following traumatic brain injury. 2. New crescent-shaped hypodense fluid collection along the right frontal lobe characteristic of a small posttraumatic hygroma. 3. Left temporal bone fracture with opacification of the middle ear. 4. Opacified sphenoid sinus; unchanged. Nikhil Luciano MD Chest X-Ray 05/11/17 0000 Signed Impressions: Service Date/Time: Thursday, May 11, 2017 17:20 - CONCLUSION: No evidence of pneumothorax status post AICD placement. Nikhil Luciano MD Medical Decision Making Impression and Plan 1. Traumatic brain injury. 05/12/17 CT scan head reveals development of a small right frontal subdural hygroma without significant mass effect. Recommendations: Medical notes reviewed. Cardiology plans reviewed. She may begin Lovenox from a neurosurgery standpoint. There is a small increase chance of development of subdural hematoma on full anticoagulation due to the presence of small subdural hygroma. However review of the patient's chart including cardiac issues would indicate that the benefit of anticoagulation outweighs a relatively small risk of hematoma formation. Hill Bond MD May 12, 2017 22:55
[2017-05-13 03:00] VITALS: BP 119/68; PULSE 68; PULSE 77; RESP 16; TEMP 98.3; O2SAT 98
[2017-05-13] MEDS: CHLORHEXIDINE GLUCONATE 2 % 1 PACK (2 CLOTHS) TOP SCH ×2 (04:00)
[2017-05-13 06:52] LABS: HEMATOCRIT 32.9 % (35.0-46.0); MEAN CELL VOLUME 96.1 FL (80.0-100.0); MEAN CORPUSCULAR HEMOGLOBIN 32.2 PG (27.0-34.0); MEAN CORPUSCULAR HGB CONC 33.5 % (32.0-36.0); PLATELET COUNT 182 TH/MM3 (150-450); RED BLOOD COUNT 3.43 MIL/MM3 (4.00-5.30); RED CELL DISTRIBUTION WIDTH 13.2 % (11.6-17.2); REVIEW FLAG FINAL; WHITE BLOOD COUNT 7.7 TH/MM3 (4.0-11.0)
[2017-05-13 07:00] VITALS: BP 111/67; PULSE 70; PULSE 73; RESP 18; TEMP 97.8; O2SAT 92
[2017-05-13 07:14] LABS: BICARBONATE 28.7 MEQ/L (21.0-32.0); POTASSIUM 3.8 MEQ/L (3.5-5.1)
[2017-05-13] MEDS: ACETAMINOPHEN 325 MG TAB PO PRN (07:55)
[2017-05-13 08:00] VITALS: O2SAT 98
[2017-05-13] MEDS: levETIRAcetam INJ 100 ML IV SCH (08:46)
[2017-05-13] MEDS: SODIUM CHLORIDE 0.9% FLUSH 10 ML FLUSH IV FLUSH SCH (08:47)
[2017-05-13] MEDS: DOCUSATE SODIUM 50 MG/SENNA 8.6 MG TAB PO SCH (08:47)
[2017-05-13] MEDS: FAMOTIDINE 20 MG/2 ML VIAL IV PUSH SCH (08:47)
[2017-05-13] MEDS: CARVEDILOL 6.25 MG TAB PO SCH (08:48)
[2017-05-13] MEDS: SPIRONOLACTONE 25 MG TAB PO SCH (08:48)
[2017-05-13] MEDS: LISINOPRIL 5 MG TAB PO SCH (08:48)
[2017-05-13] MEDS ORDERED: APIX5TAB PO (09:22)
[2017-05-13] MEDS ORDERED: CARV6.25 PO (09:22)
[2017-05-13] MEDS ORDERED: LISI-519 PO (09:22)
[2017-05-13] MEDS ORDERED: SPIR25 PO (09:22)
--- NOTE | 2017-05-13 09:26 | HHI.DS ---
Discharge Summary Admission Date May 04, 2017 at 16:44 Discharge Date: May 13, 2017 Admitting Diagnosis v fib arrest, head injury (1) Respiratory failure ICD Code: J96.90 - Respiratory failure, unspecified, unspecified whether with hypoxia or hypercapnia (2) Cardiomyopathy ICD Code: I42.9 - Cardiomyopathy, unspecified (3) Atrial fibrillation ICD Code: I48.91 - Unspecified atrial fibrillation Brief History - From Admission 67-year-old female with past medical history of atrial fibrillation on Xarelto presents for a witnessed at 3:45 syncopal episode. She became unresponsive and fell backward and struck the back of her head on the ground. The CPR was started by bystanders and paramedics were called and found her in ventricular fibrillation. They worked her as an ACLS code for the next 40 minutes until they got return of circulation. She was defibrillated 6 times and received 4 doses of 1 mg epinephrine. She received 100 mg of bicarbonate and a total of 450 mg of amiodarone given over 2 separate doses. CBC/BMP: 05/13/17 0511 05/13/17 0511 Significant Findings Laboratory Tests Test 05/11/17 04:45 05/12/17 04:08 05/13/17 05:11 Red Blood Count 3.57 MIL/MM3 (4.00-5.30) 3.43 MIL/MM3 (4.00-5.30) Hematocrit 34.4 % (35.0-46.0) 32.9 % (35.0-46.0) Hemoglobin 11.0 GM/DL (11.6-15.3) Creatinine 0.45 MG/DL (0.50-1.00) Imaging Last Impressions Head CT 05/12/17 0000 Signed Impressions: Service Date/Time: Friday, May 12, 2017 09:58 - CONCLUSION: 1. Resolving small foci of subarachnoid hemorrhage following traumatic brain injury. 2. New crescent-shaped hypodense fluid collection along the right frontal lobe characteristic of a small posttraumatic hygroma. 3. Left temporal bone fracture with opacification of the middle ear. 4. Opacified sphenoid sinus; unchanged. Nikhil Luciano MD Chest X-Ray 05/11/17 0000 Signed Impressions: Service Date/Time: Thursday, May 11, 2017 17:20 - CONCLUSION: No evidence of pneumothorax status post AICD placement. Nikhil Luciano MD Cervical Spine CT 05/04/17 0000 Signed Impressions: Service Date/Time: Thursday, May 04, 2017 16:42 - CONCLUSION: 1. No evidence of acute cervical spine fracture. 2. Horizontal fracture left temporal bone. Edin Fitch MD PE at Discharge GENERAL: Well-nourished, well-developed female sitting in bed in [facility]. SKIN: Warm and dry. HEAD: Normocephalic. EYES: No scleral icterus. No injection or drainage. NECK: trachea midline. No JVD CARDIOVASCULAR: Atrial fibrillation rate controlled no murmur RESPIRATORY: unlabored. equal chest rise. on room air. No accessory muscle use. GASTROINTESTINAL: Abdomen soft, non-tender, nondistended. MUSCULOSKELETAL: No cyanosis, or edema. BACK: Nontender without obvious deformity. NEURO EXAM: Alert awake, communicates. Alert and oriented x 1 (self only). CN 2- 12 grossly normal. No focal deficit. Pt update on day of discharge Patient reports she is feeling ok. DW with daughter and sister at length. She is more awake today and looks better overall. They opted to take the patient home instead of rehab and they will provide 22/12 care with assistance from home health. Hospital Course 67 yo F with [id number] cardiac arrest and traumatic SAH. Neuro: //Traumatic subarachnoid hemorrhage, nondisplaced left temporal and parietal bone fracture //Hypoxic ischemic encephalopathy - Clinically neuro exam showing improvement, patient following commands communicative - F/u CT head05/05 resolution of SAH, neurosurgery Dr. Carmona - Because of improvement in clinical exam initial plan for induced hypothermia was abandoned - Anticoagulation reversed with Kcentra due to subarachnoid hemorrhage Resp: //Acute hypoxic and hypercarbic Respiratory failure - resolved. - Intubated for an airway protection - Extubated 05/07/17, tolerating well - DuoNeb's when necessary - Possible aspiration pneumonitis, f/u sputum culture negative - room air. CVS: //V. fib arrest //Chronic atrial fibrillation //Nonischemic cardiomyopathy EF 25-30%. Mild to moderate MR TR //Lactic acidosis- resolved. //Troponin elevation - Status post successful cardiopulmonary resuscitation - Coreg 6.25 mg twice a day and lisinopril 2.5 mg daily 05/06. Aldactone 25 mg po BID 05/07 - PO meds on hold, as she failed swallow. Reevaluate today. Continue IV metoprolol until cleared for by mouth - Discontinued amiodarone drip 05/06 - Cardiac cath on Thursday cleared for antiplatelet therapy by Dr. Carmona. Anticoagulation Okd after 1 week - AICD EP study on Thursday - Echocardiogram EF 25-30%. There is global left ventricular dysfunction. Mild MR which is central (possible coaptation problem). Mild to moderate tricuspid valve regurgitation. - Start ASA today if ok with N/S = 05/12. Discussed with cardiology. Status post AICD placement. Cardiology would like to start full anticoagulation. Consult neurosurgery as per cardiology request. GI: - regular basic diet per speech. - IV famotidine Constipation: bowel regimen : - Monitor the renal function closely. d/c tam. - IV Lasix 40 mg 05/06 and 05/07 - Aldactone started ENDO: - Electrolyte replacement per protocol ID: Probable aspiration pneumonitis- resolving. - F/u sputum culture, watch off antibiotics. clinically improving. DVT GI prophylaxis - Teds SCDs - Start full anticoagulation ifokay per neurosurgery. DC plan: Pending improvement. awat NS inout on ac. appreciate cards/ns assist Discharge Planning possible discharge tomorrow -Cardiology would like full anticoagulation with eliquis (if cleared for this by neurosurgery) = PT recommends rehabilitation. Family requests home with home health. -Possible discharge to rehabilitation versus home with home health in the next 2 days. Pt Condition on Discharge: Good Discharge Disposition: Disch w/ Home Health Serv Discharge Time: > 30 minutes Discharge Instructions DIET: Follow Instructions for: Heart Healthy Diet Activities you can perform: See Additionl Instruction Other Activity Instructions: Use assitance as instructed by PT. Alexis Vargas MD May 13, 2017 09:26
[2017-05-13] MEDS ORDERED: APIXABAN 5 MG TABLET PO SCH (09:45)
--- NOTE | 2017-05-13 10:33 | PD.CARD.PN ---
Subjective Subjective Remarks No CP or SOB, alert and oriented, feels well, on O2 Objective Medications Current Medications Medications (Trade) Dose Ordered Sig/Tom Route Start Time Stop Time Status Last Admin (Zofran Inj) 4 mg Q6H PRN IV PUSH 05/04/17 17:00 (Chlorhexidine 2% Cloth) Taper DAILY@04 TOP 05/05/17 04:00 05/01/18 03:59 Potassium Chloride 100 ml @ 50 mls/hr Q2H PRN IV 05/04/17 17:00 Potassium Chloride 100 ml @ 50 mls/hr Q2H PRN IV 05/04/17 17:00 (K-Lyte Cl Eff) 50 meq UNSCH PRN PO 05/04/17 17:00 Potassium Chloride 100 ml @ 25 mls/hr UNSCH PRN IV 05/04/17 17:00 Potassium Chloride 100 ml @ 50 mls/hr Q2H PRN IV 05/04/17 17:00 Magnesium Sulfate 4 gm/Sodium Chloride 100 ml @ 50 mls/hr UNSCH PRN IV 05/04/17 17:00 (Mag-Ox) 800 mg UNSCH PRN PO 05/04/17 17:00 Magnesium Sulfate 2 gm/Sodium Chloride 100 ml @ 50 mls/hr UNSCH PRN IV 05/04/17 17:00 (K-Phos) 2,000 mg Q4H PRN PO 05/04/17 17:00 Sodium Phosphate 30 mmol/Sodium Chloride 250 ml @ 42 mls/hr UNSCH PRN IV 05/04/17 17:00 (K-Phos) 2,000 mg UNSCH PRN PO/TUBE 05/04/17 17:00 Potassium Phosphate 30 mmol/ Sodium Chloride 260 ml @ 42 mls/hr UNSCH PRN IV 05/04/17 17:00 05/05/17 09:01 (Brethine Inj) 1 mg UNSCH PRN SQ 05/04/17 19:45 (NS Flush) 2 ml UNSCH PRN IV FLUSH 05/04/17 19:45 (NS Flush) 2 ml BID IV FLUSH 05/04/17 21:00 05/13/17 08:47 (Tylenol) 650 mg Q6H PRN PO 05/04/17 19:45 05/13/17 07:55 (Pepcid Inj) 20 mg Q12HR IV PUSH 05/04/17 21:00 05/13/17 08:47 (Duoneb Neb) 1 ampule Q2HR NEB PRN INH 05/04/17 19:45 Miscellaneous Information 1 Q361D XX 05/04/17 19:45 (Chlorhexidine 2% Cloth) Taper DAILY@04 TOP 05/05/17 04:00 05/01/18 03:59 05/11/17 04:00 (Chlorhexidine 2% Cloth) 3 pack UNSCH PRN TOP 05/04/17 19:45 (Yaneth-Colace) 1 tab BID PO 05/04/17 21:00 05/10/17 09:58 (Milk Of Magnesia Liq) 30 ml Q12H PRN PO 05/04/17 19:45 (Senokot) 17.2 mg Q12H PRN PO 05/04/17 19:45 (Dulcolax Supp) 10 mg DAILY PRN RECTAL 05/04/17 19:45 (Lactulose Liq) 30 ml DAILY PRN PO 05/04/17 19:45 (Coreg) 6.25 mg Q12HR PO 05/06/17 09:00 05/13/17 08:48 (Pill Splitter) 1 ea UNSCH PRN OTHER 05/06/17 10:00 (Aldactone) 25 mg BID@,18 PO 05/07/17 09:00 05/13/17 08:48 (Prinivil) 2.5 mg BID PO 05/09/17 21:00 05/13/17 08:48 (Eliquis) 5 mg BID PO 05/13/17 09:45 05/13/17 09:55 Vital Signs / I&O Vital Signs Date Time Temp Pulse Resp B/P (MAP) Pulse Ox O2 Delivery O2 Flow Rate FiO2 05/13/17 08:00 95 Room Air 05/13/17 08:00 98 Nasal Cannula 2.00 05/13/17 07:00 97.8 73 18 111/67 (82) 92 05/13/17 07:00 70 05/13/17 07:00 92 Nasal Cannula 2.00 05/13/17 03:00 77 05/13/17 03:00 95 Bi-Pap 2.00 05/13/17 03:00 98.3 68 16 119/68 (85) 98 05/12/17 23:00 98.2 68 18 114/65 (81) 95 05/12/17 23:00 95 Bi-Pap 2.00 05/12/17 23:00 72 05/12/17 20:57 96 Nasal Cannula 2.00 05/12/17 19:00 75 05/12/17 19:00 98.3 69 18 118/69 (85) 96 05/12/17 19:00 96 Nasal Cannula 2.00 05/12/17 15:00 98.0 74 16 105/56 (72) 97 05/12/17 15:00 76 05/12/17 15:00 96 Nasal Cannula 2.00 05/12/17 11:00 98.7 76 16 112/67 (82) 96 05/12/17 11:00 72 05/12/17 11:00 96 Nasal Cannula 2.00 I/O 05/12/17 05/12/17 05/12/17 05/13/17 05/13/17 05/13/17 07:00 15:00 23:00 07:00 15:00 23:00 Intake Total 540 ml 1650 ml 240 ml Output Total 600 ml 500 ml Balance 540 ml 1050 ml -260 ml Intake Oral 240 ml 1500 ml 240 ml IV Total 300 ml 150 ml Output Urine Total 600 ml 500 ml # Voids 4 2 4 # Bowel Movements 1 0 Physical Exam GENERAL: Awake, alert, in NAD SKIN: Warm and dry. HEAD: Normocephalic. EYES: No scleral icterus. No injection or drainage. NECK: Supple, trachea midline. No JVD or lymphadenopathy. CARDIOVASCULAR: Regular, no murmur, gallops, or rubs. RESPIRATORY: Breath sounds equal bilaterally. No accessory muscle use. GASTROINTESTINAL: Abdomen soft, non-tender, nondistended. MUSCULOSKELETAL: No cyanosis, or edema. Wound clean, no hematoma Laboratory Laboratory Tests Test 05/13/17 05:11 White Blood Count 7.7 TH/MM3 Red Blood Count 3.43 MIL/MM3 Hemoglobin 11.0 GM/DL Hematocrit 32.9 % Mean Corpuscular Volume 96.1 FL Mean Corpuscular Hemoglobin 32.2 PG Mean Corpuscular Hemoglobin Concent 33.5 % Red Cell Distribution Width 13.2 % Platelet Count 182 TH/MM3 Mean Platelet Volume 7.6 FL Blood Urea Nitrogen 13 MG/DL Creatinine 0.45 MG/DL Random Glucose 94 MG/DL Calcium Level 8.6 MG/DL Sodium Level 139 MEQ/L Potassium Level 3.8 MEQ/L Chloride Level 104 MEQ/L Carbon Dioxide Level 28.7 MEQ/L Anion Gap 6 MEQ/L Estimat Glomerular Filtration Rate 139 ML/MIN Assessment and Plan Problem List: (1) Cardiac arrest ICD Codes: I46.9 - Cardiac arrest, cause unspecified Status: Acute (2) Ventricular fibrillation ICD Codes: I49.01 - Ventricular fibrillation Status: Acute (3) Subarachnoid hemorrhage following injury ICD Codes: S06.6X9A - Traumatic subarachnoid hemorrhage with loss of consciousness of unspecified duration, initial encounter Status: Acute (4) Atrial fibrillation ICD Codes: I48.91 - Unspecified atrial fibrillation (5) Respiratory failure ICD Codes: J96.90 - Respiratory failure, unspecified, unspecified whether with hypoxia or hypercapnia (6) Cardiomyopathy ICD Codes: I42.9 - Cardiomyopathy, unspecified Assessment and Plan Good progress. Cath with patent cors and mild LV systolic dysfunction. EP study with no inducible arrhythmias. ICD placed, pt now in SR. Normal ICD function. Wound stable. Continue JOSE L-I and beta isaías, titrate as tolerated. Keppra discontinued. Full anticoagulation started with Eliquis 5 mg BID due to recent a fib and increased risk of embolic stroke; OK with neurosurgery. D/w pt and family. F/u with me in 1 week. Problem Qualifiers (1) Subarachnoid hemorrhage following injury: Qualified Codes: S06.6X3A - Traumatic subarachnoid hemorrhage with loss of consciousness of 1 hour to 5 hours 59 minutes, initial encounter Dara Wilkinson MD May 13, 2017 10:33
--- NOTE | 2017-05-13 16:05 | EKG ---
Date Performed: 05/12/2017 Time Performed: 08:51:40 PTAGE: 67 years EKG: Sinus arrhythmia with PVC(s) with borderline 1st degree A-V block Possible anterior infarct - age undetermined Lateral T wave changes are nonspecific Generalized low QRS voltages Abnormal ECG PREVIOUS TRACING : 05/12/2017 08.51 DOCTOR: Hernan Martinez Interpretating Date/Time 05/13/2017 16:04:13
== END 2017-05-13 10:58 | disposition home health service (06) | DRG 224 ==
LOC: PHED 16:26 → PHEDA 16:44 → N03B 18:46 → HCVI 05-09 13:00
PROVIDERS: ADMIT Family Medicine; ATTEND Family Medicine
PROC: 5A1945Z Respiratory Ventilation, 24-96 Consecutive Hours (ICD-10-PCS; 2017-05-04)
PROC: 0HQ0XZZ Repair Scalp Skin, External Approach (ICD-10-PCS; 2017-05-04)
PROC: 05HN33Z Insertion of Infusion Device into Left Internal Jugular Vein, Percutaneous Approach (ICD-10-PCS; 2017-05-05)
PROC: 0JH608Z Insertion of Defibrillator Generator into Chest Subcutaneous Tissue and Fascia, Open Approach (ICD-10-PCS; 2017-05-11)
PROC: B2111ZZ Fluoroscopy of Multiple Coronary Arteries using Low Osmolar Contrast (ICD-10-PCS; 2017-05-11)
PROC: B2151ZZ Fluoroscopy of Left Heart using Low Osmolar Contrast (ICD-10-PCS; 2017-05-11)
PROC: 4A0234Z Measurement of Cardiac Electrical Activity, Percutaneous Approach (ICD-10-PCS; 2017-05-11)
PROC: 3E0102A Introduction of Anti-Infective Envelope into Subcutaneous Tissue, Open Approach (ICD-10-PCS; 2017-05-11)
PROC: 4A023N7 Measurement of Cardiac Sampling and Pressure, Left Heart, Percutaneous Approach (ICD-10-PCS; principal; 2017-05-11 14:00)
PROC: 02HK3KZ Insertion of Defibrillator Lead into Right Ventricle, Percutaneous Approach (ICD-10-PCS; 2017-05-11 14:00)
DX: I49.01 Ventricular fibrillation (principal); S06.6X3A Traumatic subarachnoid hemorrhage with loss of consciousness of 1 hour to 5 hours 59 minutes, initial encounter; J69.0 Pneumonitis due to inhalation of food and vomit; R40.20 Unspecified coma; J96.01 Acute respiratory failure with hypoxia; J96.02 Acute respiratory failure with hypercapnia; I95.9 Hypotension, unspecified; E87.2 Acidosis; G93.1 Anoxic brain damage, not elsewhere classified; S02.0XXA Fracture of vault of skull, initial encounter for closed fracture; S02.19XA Other fracture of base of skull, initial encounter for closed fracture; I46.2 Cardiac arrest due to underlying cardiac condition; I42.9 Cardiomyopathy, unspecified; I50.9 Heart failure, unspecified; I48.2 Chronic atrial fibrillation; W19.XXXA Unspecified fall, initial encounter; S01.01XA Laceration without foreign body of scalp, initial encounter; R74.8 Abnormal levels of other serum enzymes; I08.1 Rheumatic disorders of both mitral and tricuspid valves; K59.00 Constipation, unspecified; Z79.01 Long term (current) use of anticoagulants
CPT/HCPCS: 12001; 31500; 33249; 36620; 70450; 71010; 72125; 76937; 80048; 80053; 82550; 82552; 82805; 82948; 83605; 83735; 84100; 84132; 84439; 84443; 84484; 85007; 85025; 85027; 85610; 85730; 87070; 87205; 87641; 93005; 93306; 93458; 93620; 93623; 94002; 94003; 94150; 94640; 94664; 94667; 94668; 95819; 99292; C1722; C1730; C1760; C1769; C1777; C1893; C1895; C9132; G0269; J0282; J0690; J1580; J1644; J1940; J1953; J3010; J3370; J3475; J3480; J7030; J7040; J7050; J7060